=== PATIENT | female | born 1935 | race Caucasian/White ===

== ENCOUNTER 2020-08-13 14:32 | Inpatient (IN) ==
[2020-08-13] MEDS ORDERED: SODIUM CHLORIDE 0.9% 1000ML 1,000 ML IV SCH (14:45)
[2020-08-13] MEDS ORDERED: SODIUM CHLORIDE 0.9% 500 ML IV SCH (14:45)
--- NOTE | 2020-08-13 15:25 | XRay Report ---
XR chest 1V portable HISTORY: weakness COMPARISON: None. FINDINGS: No focal lung consolidations to suggest pneumonia. No evidence for pulmonary edema. The hea rt is mildly enlarged. There are surgical clips within the left axilla. Right paratracheal prominence is likely due to the rotation and AP portable technique. Prior cholecystectomy. IMPRESSION: Mild cardiomegaly. Otherwise, no acute process within the chest. ACT 112: Negative or not required by law. Electronically signed by: Clyde Yan M.D. 08/13/2020 3:24 PM
[2020-08-13 15:27] LABS: Basophils # (auto) 0.01 K/uL (0-0.2); Basophils % (auto) 0.1 %; Eosinophils # (auto) 0.02 K/uL (0-0.5); Eosinophils % (auto) 0.1 %; Hematocrit (blood only) 33.9 % (37-47); Hemoglobin 11.9 g/dL (12.0-16.0); Immature Granulocytes # (auto) 0.05 K/uL (0.00-0.02); Immature Granulocytes % (auto) 0.3 %; Lymphocytes # (auto) 0.82 K/uL (1.2-3.4); Lymphocytes % (auto) 5.6 %; Mean Corpuscular Hemoglobin 30.7 pg (25-34); Mean Corpuscular Hgb Conc 35.1 g/dL (32-36); Mean Corpuscular Volume 87.4 fL (80-100); Mean Platelet Volume 8.7 fL (7.4-10.4); Monocytes # (auto) 1.13 K/uL (0.11-0.59); Monocytes % (auto) 7.7 %; Neutrophils # (auto) 12.72 K/uL (1.4-6.5); Neutrophils % (auto) 86.2 %; Platelet Count 226 K/uL (130-400); RDW Coefficient of Variation 13.1 % (11.5-14.5); Red Blood Count 3.88 M/uL (4.2-5.4); White Blood Count 14.75 K/uL (4.8-10.8)
[2020-08-13 15:46] LABS: BUN Creatinine Ratio 25.4 (10-20); Creatinine Clr Calc Pharmacy 31.7 ml/min; Est GFR (African American) 49.5; Est GFR (Non-African American) 42.7; Potassium 3.6 mmol/L (3.5-5.1)
--- NOTE | 2020-08-13 16:10 | CT Scan Report ---
CT head/brain wo con CLINICAL HISTORY: Head trauma. Patient on floor for 24 hours. COMPARISON STUDY: No previous studies for comparison. TECHNIQUE: Axial CT of the brain is performed from the vertex to the skull base. IV contrast was not administered for this examination. A dose lowering technique was utilized adhering to the principles of ALARA. CT DOSE: 614.27 mGy.cm FINDINGS: No intra or extra-axial mass lesions are visualized. There is no CT evidence of acute cortical infarc tion. There is no evidence of midline shift. There is no acute hemorrhage. No calvarial fractures ar e visualized. There are patchy white matter hypodensities likely on a small vessel basis. There are bilateral basal ganglia lacunar infarcts. There is no evidence of pathologic ventricular dilatation. There is mild pansinus is thickening. There is mild left frontal scalp edema. There is right periorbital edema. IMPRESSION: No acute intracranial findings ACT 112: Negative or not required by law. Electronically signed by: Daniel Gresham M.D. 08/13/2020 4:09 PM
[2020-08-13 16:16] LABS: Albumin Globulin Ratio 0.9 (0.9-2); Bilirubin,Total 0.4 mg/dl (0.2-1); Globulin 3.2 gm/dl (2.5-4.0); Thyroid Stimulating Hormone 5.83 uIu/ml (0.300-4.500); Total Protein 6.2 gm/dl (6.4-8.2)
[2020-08-13 16:34] LABS: Appearance Urine Turbid (Clear); Bacteria Urine Automated 4+ (Negative); Bilirubin Urine Negative (Negative); Blood Urine 3+ (Negative); Color Urine Dark Yellow; Epithelial Cell Urine Auto >30 /lpf (0-5); Glucose Urine UA Negative (Negative); Ketones Urine 1+ (Negative); Leukocyte Esterase Urine 2+ (Negative); Nitrite Urine Positive (Negative); Protein Urine 2+ (Negative); Urobilinogen Urine Negative (Negative); WBC Urine Automated >30 /hpf (0-5)
[2020-08-13 16:38] LABS: T4 Free Thyroxine 1.45 ng/dl (0.8-1.6)
[2020-08-13] MEDS ORDERED: cefTRIAXone SODIUM 1,000 MG/50 ML BAG IV STA (17:03)
[2020-08-13 17:23] LABS: Amorphous Sediment Urine Present (None Prsent); Cast Urine Automated 0 /lpf (0-5); RBC Urine Automated >30 /hpf (0-4)
--- NOTE | 2020-08-13 17:23 | History & Physical Report ---
Date of Service August 13, 2020 Assessment & Plan (1) Fall: Unclear etiology, unwitnessed. Last known well 11am yesterday. PT/OT evals pending CT A/P, Hip XRs. Despite no specific groin pain will image hips to make sure no fracture as patient poor historian. CT A/P would also to r/o lumbar vertebral fracture. (2) UTI (urinary tract infection): Ceftriaxone 1g IV daily. Continue daily pending urine and blood cultures. (3) Abdominal distension: CT A/P without IV contrast pending. Mild generalized pain. Patient notes constipation. (4) Constipation: Add laxatives pending CT A/P to r/o bowel obstruction. (5) Rhabdomyolysis: Secondary to fall. CPK 7085 on arrival. Continue IV fluids. Given usually on 80mg furosemide monitor for pulmonary edema with this. Hold furosemide. (6) Left bundle branch block: Chronic - recorded in EHR 12/2019. No chest pain or shortness of breath to suggest ACS. (7) Restless legs: Continue pramipexole 0.75mg po HS (8) GERD (gastroesophageal reflux disease): Switch omeprazole to pantoprazole per hospital formulary. (9) Asthma: Continue montelukast and Advair Diskus or hospital formulary equivalent. (10) B12 deficiency anemia: Continue vitamin B complex (11) Hypothyroidism: TSH pending. Continue levothyroxine 75 mcg PO daily (12) DVT prophylaxis: Chemical prophylaxis deferred pending further workup. SCDs Admission and Anticipated Discharge Date Admission Date: Aug 13, 2020 History of Present Illness Chief Complaint: Unwitnessed fall Primary Care Provider: HARSHA Cronin Chantal Rajan is an 85-year-old female who presents to the ER after being found on her face to the bottom of the steps on a hardwood floor. She usually lives with her son and [id number]-lgy but currently on vacation in [place] and her grandson was checking in on the patient. This is the first time he had checked on her in a few days. Last known well was yesterday at 11 AM when the family talked to her on the phone. Transported by EMS with urine soaked to abdomen, red face and swollen with right eye swollen shut. Abrasion to left middle toe and right third toe. Chantal is unable to give an accurate history of when or the circumstances surrounding the fall and changed her story to multiple providers and nursing staff. She thinks it may have been multiple times. Unknown if chest pain, shortness of breath or dizzy prior to falling. She was unable to get up after the fall but denies any specific pains currently. She denies any urinary or upper respiratory symptoms. In the ER CXR was unremarkable and CT head showed no acute intracranial abnorm ality. CPK 7085. UA grossly positive for infection. She was given IV NSS 500ml bolus for the rhabodomylolsis and started on ceftriaxone for the presumed UTI. Of note right femoral line was placed in the ER due to poor venous access. She was referred to medicine for admission and ongoing management of UTI, rhabdomyolysis and fall. Allergies Allergy/AdvReac Type Severity Reaction Status Date / Time No Known Drug Allergies Allergy Verified 05/26/20 11:01 Home Medications Medication Instructions Recorded Confirmed Type aspirin 81 mg tablet,delayed 81 mg PO DAILY #30 tab 02/19/19 08/13/20 Rx release calcium carb-vit B1-xvvnsscks-jrcu 3 tab PO DAILY #90 tab 02/19/19 08/13/20 Rx 333 mg-200 unit-133 mg-5 mg tablet ferrous sulfate 27 mg iron tablet 27 mg PO DAILY #30 tab 02/19/19 08/13/20 Rx ipratropium 0.5 mg-albuterol 3 mg 3 ml INH QID #180 ml 02/19/19 08/13/20 Rx (2.5 mg base)/3 mL nebulization soln melatonin 10 mg capsule 10 mg PO DAILY PRN #30 cap 02/19/19 08/13/20 Rx potassium 99 mg tablet 2.5 meq PO DAILY #90 tab 02/19/19 08/13/20 Rx sennosides 8.6 mg tablet 8.6 mg PO DAILY PRN #30 tab 02/19/19 08/13/20 Rx vitamin B complex 1 tab PO DAILY #30 tab 02/19/19 08/13/20 Rx cholecalciferol (vitamin D3) 25 1,000 units PO DAILY #30 cap 08/30/19 08/13/20 Rx mcg (1,000 unit) capsule omeprazole 40 mg capsule,delayed 40 mg PO DAILY #90 cap 08/30/19 08/13/20 Rx release ergocalciferol (vitamin D2) 1,250 50,000 units PO UD cap 12/24/19 08/13/20 History mcg (50,000 unit) capsule clorazepate dipotassium 7.5 mg 7.5 mg PO BID PRN #60 tab 02/04/20 08/13/20 Rx tablet albuterol sulfate 90 mcg/actuation 2 puff INHALATION QID PRN #18 g 02/14/20 08/13/20 Rx aerosol inhaler cetirizine 10 mg tablet 10 mg PO DAILY PRN #90 tab 02/14/20 08/13/20 Rx fluticasone 100 mcg-salmeterol 50 1 ea INH BID #60 ea 02/14/20 08/13/20 Rx mcg/dose blistr powdr for inhalation levothyroxine 75 mcg tablet 75 mcg PO DAILY #90 tab 02/14/20 08/13/20 Rx tamoxifen 20 mg tablet 20 mg PO DAILY #90 tab 02/14/20 08/13/20 Rx montelukast 10 mg tablet 10 mg PO QPM #90 tab 03/24/20 08/13/20 Rx nystatin 100,000 unit/gram topical 1 applic TOPICAL DAILY #30 g 05/26/20 08/13/20 Rx powder furosemide 40 mg tablet 80 mg PO DAILY #180 tab 07/06/20 08/13/20 Rx pramipexole 0.75 mg tablet 0.75 mg PO DAILY #90 tab 07/06/20 08/13/20 Rx cyclobenzaprine 0 mg PO UD PRN 08/13/20 08/13/20 History Past Med/Surg History Medical History Arthritis Breast cancer Cholecystitis Depression with anxiety Hearing difficulty HX: breast cancer left breast (mastectomy) Hyperlipemia Hypertension Hypothyroidism Migraine Pneumonia Vision problem Surgical History H/O mastectomy left H/O: hysterectomy History of knee replacement BILATERAL Hx of cholecystectomy Family History Sister No problems noted. Mother Heart disease Hypertension Lung cancer Denies family history of Ovarian cancer Prostate cancer Breast cancer Colorectal cancer Social History Smoking Status: Never smoker Second Hand Exposure: Yes; Hx Alcohol Use: No Hx Substance Use: No Preferred Language: Kazakh Beliefs That Will Affect Care: None marital status: / Current Living Situation: Family current occupational status: retired Other Information That Helps Us Care for You: No Feels Safe at Home: Yes Dental Care, Regularly: No Physical Activity Frequency: Does not Exercise Assistive Devices: None Assistive Devices Comment: no assistive devices here Review of Systems Review of Systems: All systems reviewed & are unremarkable except as noted in HPI & below Constitutional: + body aches and + fatigue Eyes: no problem reported Cardiovascular: no problem reported Gastrointestinal: + constipation; no abdominal pain, no belching, no heartburn, no nausea, no vomiting, no coffee ground emesis, no dysphagia, no blood in stools and no melena Musculoskeletal: no back pain and no muscle weakness Physical Exam Constitutional: well developed; no acute distress Eyes: PERRL, conjunctivae normal, anicteric sclerae Periorbital edema surrounding right eye, conjunctiva without hemorrhage. ENMT: Ears: no external ear abnormality Nose: no external nose abnormality Mouth: + dry oral mucous membranes Neck: normal visual inspection and trachea midline Respiratory: normal respiratory effort, lungs clear to auscultation Cardiovascular: Rate/Rhythm: regular rate and regular rhythm Heart Sounds: no murmur Extremities: normal capillary refill and + pedal edema (trace b/l ankles); no calf tenderness Gastrointestinal (Abdomen): Inspection/Auscultation: + abdomen distended and normal bowel sounds Percussion/Palpation: + abdomen tender (mild generalized) and abdomen soft; no guarding and abdomen not rigid Musculoskeletal: Head/Neck/Chest: + evidence of head trauma (right scalp edema and erythema) Spine: normal cervical ROM, no pain with cervical ROM, no cervical spinal tenderness, no pain with thoraco-lumbar ROM, no thoracic spinal tenderness and no lumbar spinal tenderness Hip: hip normal to inspection, no deformity, no effusion, no skin erythema, no ecchymosis and no joint line tenderness (no pain noted with ext/int rotation of b/l hips, grimacing with right hip) Knee: + skin erythema (over b/l knee scars) Skin: + erythema (over b/l knees, pressure related without overt cellulitis changes) Trauma: + evidence of skin trauma (minor abrasions over toes); no periorbital ecchymosis (erythema without ecchymosis over right eye) Neurologic: CN's II-XI intact bilaterally, moves all extremities and awake; no focal motor deficits (no lateralizing deficit) and not confused Psychiatric: Orientation: alert and oriented x 3 Apperance: + disheveled Eye Contact: good eye contact Genitourinary: no CVA tenderness Results & Data Results & Data ([facility]) Vital Signs (Past 12 Hours) Vital Signs Temp Pulse Pulse Resp BP BP Pulse Ox 08/13/20 17:01 91 H 24 112/62 98 08/13/20 16:30 91 H 24 117/64 98 08/13/20 16:10 91 H 24 112/68 97 08/13/20 15:56 91 H 24 114/65 97 08/13/20 15:45 90 21 112/68 99 08/13/20 15:14 88 24 107/60 96 08/13/20 15:04 36.5 C 08/13/20 14:51 95 08/13/20 14:43 93 H 20 95/57 L 97 Diagnostic Findings XR chest 1V portable IMPRESSION: Mild cardiomegaly. Otherwise, no acute process within the chest. CT head/brain wo con IMPRESSION: No acute intracranial findings Medications Administered ER Medications given: Ceftriaxone 1g IV NSS 500ml bolus NSS @ 100ml/hr started ECG Indication: altered mental status Rate (beats per minute): 93 Rhythm: normal sinus Findings: + LBBB Comparison ECG Date: no prior available Code Status & VTE Plan Code Status Full as discussed with the patient VTE Prophylaxis Plan VTE Prophylaxis will be ordered: Yes PG Care Time/CCT Total # of Minutes Spent Total Time Spent with Patient: Total time spent is greater than 50% in coordination of care (as documented) at patient's floor/unit and/or counseling patient: Coding Level of Care Code 58484 Initial Inpt Care Lvl 3 Diagnoses Fall W19.XXXA UTI (urinary tract infection) N39.0 Abdominal distension R14.0 Constipation K59.00 Rhabdomyolysis M62.82 Left bundle branch block I44.7 Restless legs G25.81 GERD (gastroesophageal reflux disease) K21.9 Asthma J45.909 B12 deficiency anemia D51.9 Hypothyroidism E03.9 DVT prophylaxis Z29.9
--- NOTE | 2020-08-13 17:59 | XRay Report ---
XR hip INDIO 2v w pelvis CLINICAL HISTORY: Fall ?fracture COMPARISON STUDY: No previous studies for comparison. FINDINGS: A catheter projects over the pelvis. The sacroiliac joints and symphysis pubis are intact. No acute fracture within the pelvis or hips is identified. There is a moderate to large amount of sto ol within the rectum. There is mild joint space narrowing and moderate osteophytosis of both hips. IMPRESSION: No acute fracture within the pelvis or hips. ACT 112: Negative or not required by law. Electronically signed by: Srinivas Vines M.D. 08/13/2020 5:57 PM
[2020-08-13] MEDS ORDERED: ACETAMINOPHEN 325 MG TAB PO PRN (20:35)
[2020-08-13] MEDS ORDERED: ALUMINUM/MAGNESIUM SUSP 30 ML UDC PO PRN (20:35)
[2020-08-13] MEDS ORDERED: ONDANSETRON INJ 2 MG/ML 2 ML VIAL IV PRN (20:35)
[2020-08-13] MEDS ORDERED: POLYETHYLENE (MIRALAX) 17 GM PACK PO PRN (20:35)
--- NOTE | 2020-08-13 20:39 | CT Scan Report ---
CT OF THE ABDOMEN AND PELVIS WITHOUT CONTRAST CLINICAL HISTORY: Abdominal distention and pain following fall. COMPARISON STUDY: No previous studies for comparison. TECHNIQUE: Axial images of the abdomen and pelvis were obtained without IV contrast. Images were revi ewed in the axial, sagittal, and coronal planes. Automated exposure control was utilized for the makayla dy. A dose lowering technique was utilized adhering to the principles of ALARA. FINDINGS: Lung bases are unremarkable. This exam is compromised given lack of contrast and motion art ifact. Unenhanced images of the liver, spleen, adrenal glands, kidneys and pancreas are unremarkable. The gallbladder surgically absent. There is no peripancreatic infiltration. No hemoperitoneum or pne umoperitoneum is present. There is no evidence for a bowel obstruction. There is a large amount of st ool within the rectum. There is minimal perirectal infiltration. There is a moderate amount of stool within the colon. No acute lumbar spine fracture is present. There is a Toscano balloon within the blad paulette. Irregular appearance of gas within the bladder is noted. There may be debris within the bladder. There is subtle cortical irregularity of the left femoral neck shown best on axial image 338 of 396. IMPRESSION: 1. Large amount stool within the rectum and moderate amount stool within the colon. No evidence for a bowel obstruction. 2. Equivocal acute nondisplaced fracture of the left femoral neck. This may be artifactual however if persistent left hip pain, MRI is recommended. 3. Toscano balloon within the bladder. Unusual appearance of gas within the bladder which could be jodee elated with urinalysis. ACT 112: Negative or not required by law. Electronically signed by: Srinivas Vines M.D. 08/13/2020 8:38 PM
[2020-08-13] MEDS ORDERED: MELATONIN 3 MG TAB PO PRN (20:49)
[2020-08-13] MEDS ORDERED: PNEUMOCOCCAL Polysaccharide Vaccine 25mcg/0.5mL vial/Syr IM ONE (21:15)
[2020-08-13] MEDS: PRAMIPEXOLE DIHYDROCHLO 0.25 MG TAB PO SCH (21:44)
[2020-08-13] MEDS: MONTELUKAST SODIUM 10 MG TABLET PO SCH (21:45)
[2020-08-14] MEDS: SODIUM CHLORIDE 0.9% 1000ML 1,000 ML IV SCH ×2 (01:58→09:50)
[2020-08-14] MEDS: LEVOTHYROXINE SODIUM 75 MCG TABLET PO SCH (05:46)
--- NOTE | 2020-08-14 06:32 | Electrocardiogram Report ---
Test Reason : Blood Pressure : / mmHG Vent. Rate : 093 BPM Atrial Rate : 093 BPM P-R Int : 140 ms QRS Dur : 132 ms QT Int : 488 ms P-R-T Axes : 070 -20 122 degrees QTc Int : 606 ms Normal sinus rhythm Left bundle branch block Abnormal ECG No previous ECGs available Confirmed by Mohinder Pinzon ([id number]) on 08/14/2020 6:31:54 AM Referred By: Confirmed By:Mohinder Pinzon
[2020-08-14 07:18] LABS: Basophils # (auto) 0.01 K/uL (0-0.2); Basophils % (auto) 0.1 %; Eosinophils # (auto) 0.25 K/uL (0-0.5); Hematocrit (blood only) 33.5 % (37-47); Hemoglobin 11.6 g/dL (12.0-16.0); Immature Granulocytes # (auto) 0.07 K/uL (0.00-0.02); Immature Granulocytes % (auto) 0.6 %; Lymphocytes % (auto) 9.6 %; Mean Corpuscular Hemoglobin 30.5 pg (25-34); Mean Corpuscular Hgb Conc 34.6 g/dL (32-36); Mean Corpuscular Volume 88.2 fL (80-100); Mean Platelet Volume 8.7 fL (7.4-10.4); Monocytes % (auto) 7.2 %; Neutrophils # (auto) 10.11 K/uL (1.4-6.5); Neutrophils % (auto) 80.5 %; Platelet Count 176 K/uL (130-400); RDW Coefficient of Variation 13.7 % (11.5-14.5); White Blood Count 12.54 K/uL (4.8-10.8)
[2020-08-14 07:47] LABS: Albumin Level 2.7 gm/dl (3.4-5.0); BUN Creatinine Ratio 23.9 (10-20); Calcium 8.2 mg/dl (8.5-10.1); Creatinine Clr Calc Pharmacy 27.5 ml/min; Est GFR (African American) 49.5; Est GFR (Non-African American) 42.7
[2020-08-14 08:01] LABS: Albumin Globulin Ratio 0.9 (0.9-2); Bilirubin,Total 0.3 mg/dl (0.2-1); Globulin 3.2 gm/dl (2.5-4.0); Total Protein 5.9 gm/dl (6.4-8.2)
[2020-08-14] MEDS: CALCIUM 600MG + VIT D 400 IU TAB PO SCH (09:46)
[2020-08-14] MEDS: FLUTICASONE/VILANTEROL 100/25MCG 14 PUFFS/INHALER INH SCH (09:46)
[2020-08-14] MEDS: TAMOXIFEN CITRATE 10 MG TABLET PO SCH (09:46)
[2020-08-14] MEDS: VITAMIN B COMPLEX TAB PO SCH (09:46)
[2020-08-14] MEDS: CHOLECALCIFEROL 1,000 UNITS 25 MCG TAB PO SCH (09:46)
[2020-08-14] MEDS: PANTOprazole 40 MG TAB PO SCH (09:46)
[2020-08-14] MEDS: POLYETHYLENE (MIRALAX) 17 GM PACK PO SCH (09:49)
[2020-08-14] MEDS ORDERED: METOPROLOL TARTRATE 1 MG/ML VIAL IV STA ×2 (12:42)
[2020-08-14] MEDS ORDERED: STAT IV Infusion **Titration per Protocol STA (13:06)
[2020-08-14] MEDS ORDERED: AMIODARONE / D5W 150 MG/100 ML BAG IV STA (13:06)
[2020-08-14] MEDS ORDERED: AMIODARONE IV BOLUS & DRIP IV STA (13:06)
[2020-08-14] MEDS ORDERED: 0.2 MICRON FILTER SET 1 EA IV ONE ×2 (13:06)
[2020-08-14] MEDS ORDERED: AMIODARONE / D5W 150 MG/100 ML BAG IV ONE (13:15)
[2020-08-14] MEDS ORDERED: AMIODARONE / D5W 360 MG/200 ML BAG IV ONE (13:30)
--- NOTE | 2020-08-14 15:49 | Cardiology Consultation ---
Date of Consultation August 14, 2020 Assessment & Plan (1) Atrial fibrillation with RVR: (2) Fall: (3) Rhabdomyolysis: ASSESSMENT/PLAN: 1. AFib with RVR: Asymptomatic. New diagnosis for her. Recommended amiodarone given acute onset and mild hypotension. Fortunately, she quickly converted. Continue IV amiodarone today. Consider transitioning to amiodarone 200 mg p.o. b.i.d. tomorrow. If she develops further AFib, would then use a more formal loading of 400 mg p.o. b.i.d. for 10 days before reducing to 200 mg p.o. b.i.d.. Recommend anticoagulation for stroke risk reduction. Diagnosis in treatment strategy discussed with her daughter via telephone. Her daughter states that she has only fallen twice in the past 1.5 years. 2. Fall: Her falls have been historically mechanical in nature per her daughter who has witnessed her falling in the past. Hip pain as per primary service versus ortho. 3. Rhabdomyolysis: As per primary service. 4. Disposition: Dr. Barnett will be covering [facility] cardiology over the weekend. Please call him with any questions or concerns. Follow-up with Dr. Napier at 1-2 weeks after discharge. Patient care communicated with Dr. Rogel of the primary hospitalist service. Thank you for allowing me to participate in the care of your patient. Please call for any other questions or concerns. Sincerely, Jhon Pinzon M.D. History of Present Illness Reason for Consultation: AFib with RVR Requesting Physician: Dante Rogel Attending Physician: Dante Rogel History of Present Illness Ms. Rajan is a very pleasant 85-year-old female with a history significant for LBBB and hypothyroidism. Her primary damage inside adjuster is Dr. Napire. She was admitted on 08/13/2020 after an unwitnessed fall. She lives with her daughter, Milvia, but Milvia went to [place] to help take care of her daughter who fractured her arm. Milvia believes that her mother was on the floor for less than 12 hours. She states that she has fallen twice in the past 1.5 years while living with her. Ms Rajan stated that she falls often but Milvia states that that is not the case. Her falls have been witnessed in the past and have been mechanical in nature. She states that her mother loses her balance and then falls on her face. Milvia states that her mother's memory is not significantly declined but that she is hard of hearing and sometimes does not answer questions appropriately. Much of today's history was obtained by reviewing the chart and discussing with Milvia via telephone, as Ms. Rajan was found to be a poor historian. She also tends to mumble and was difficult to understand at times. She denies chest pain. She acknowledges herself that she has memory issues. She states that she is always short of breath but this is chronic in nature. She remembers falling and states that she did not have any syncope or near-syncope. She denies palpitations or bleeding. She has been diagnosed with rhabdomyolysis with a CPK of 7085 on arrival UTI. Cardiology was consulted this afternoon as she developed atrial fibrillation with rapid ventricular response at 12:09 p.m.. She had been in sinus rhythm. With this, it was noted that she was mildly hypotensive. Dr. Rogel spoke with me via telephone and amiodarone was recommended given that this was witnessed new onset. She is asymptomatic from atrial fibrillation, denying any palpitations. 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 Review of systems: As above. She also admits to left hip pain. Review systems otherwise unobtainable. Family history: Mother age 88 with asthma and heart disease. Sister at 88. Social history: Denies tobacco, alcohol, or drug abuse. Lives with her poppy corey, Milvia, and son-in-law. She has 2 children. She is a . She is from [place]. Allergies Allergy/AdvReac Type Severity Reaction Status Date / Time No Known Drug Allergies Allergy Verified 05/26/20 11:01 Home Medications Medication Instructions Recorded Confirmed Type aspirin 81 mg tablet,delayed 81 mg PO DAILY #30 tab 02/19/19 08/13/20 Rx release calcium carb-vit [id number] 3 tab PO DAILY #90 tab 02/19/19 08/13/20 Rx 333 mg-200 unit-133 mg-5 mg tablet ferrous sulfate 27 mg iron tablet 27 mg PO DAILY #30 tab 02/19/19 08/13/20 Rx ipratropium 0.5 mg-albuterol 3 mg 3 ml INH QID #180 ml 02/19/19 08/13/20 Rx (2.5 mg base)/3 mL nebulization soln melatonin 10 mg capsule 10 mg PO DAILY PRN #30 cap 02/19/19 08/13/20 Rx potassium 99 mg tablet 2.5 meq PO DAILY #90 tab 02/19/19 08/13/20 Rx sennosides 8.6 mg tablet 8.6 mg PO DAILY PRN #30 tab 02/19/19 08/13/20 Rx vitamin B complex 1 tab PO DAILY #30 tab 02/19/19 08/13/20 Rx cholecalciferol (vitamin D3) 25 1,000 units PO DAILY #30 cap 08/30/19 08/13/20 Rx mcg (1,000 unit) capsule omeprazole 40 mg capsule,delayed 40 mg PO DAILY #90 cap 08/30/19 08/13/20 Rx release ergocalciferol (vitamin D2) 1,250 50,000 units PO UD cap 12/24/19 08/13/20 History mcg (50,000 unit) capsule clorazepate dipotassium 7.5 mg 7.5 mg PO BID PRN #60 tab 02/04/20 08/13/20 Rx tablet albuterol sulfate 90 mcg/actuation 2 puff INHALATION QID PRN #18 g 02/14/20 08/13/20 Rx aerosol inhaler cetirizine 10 mg tablet 10 mg PO DAILY PRN #90 tab 02/14/20 08/13/20 Rx fluticasone 100 mcg-salmeterol 50 1 ea INH BID #60 ea 02/14/20 08/13/20 Rx mcg/dose blistr powdr for inhalation levothyroxine 75 mcg tablet 75 mcg PO DAILY #90 tab 02/14/20 08/13/20 Rx tamoxifen 20 mg tablet 20 mg PO DAILY #90 tab 02/14/20 08/13/20 Rx montelukast 10 mg tablet 10 mg PO QPM #90 tab 03/24/20 08/13/20 Rx nystatin 100,000 unit/gram topical 1 applic TOPICAL DAILY #30 g 05/26/20 08/13/20 Rx powder furosemide 40 mg tablet 80 mg PO DAILY #180 tab 07/06/20 08/13/20 Rx pramipexole 0.75 mg tablet 0.75 mg PO DAILY #90 tab 07/06/20 08/13/20 Rx cyclobenzaprine 0 mg PO UD PRN 08/13/20 08/13/20 History Patient History Medical History (Updated 08/14/20 @ 17:00 by Mohinder Pinzon MD) Arthritis Breast cancer Cholecystitis Depression with anxiety Hearing difficulty HX: breast cancer left breast (mastectomy) Hyperlipemia Hypertension Hypothyroidism Migraine Pneumonia Vision problem Surgical History H/O mastectomy left H/O: hysterectomy History of knee replacement BILATERAL Hx of cholecystectomy Family History Sister No problems noted. Mother Heart disease Hypertension Lung cancer Denies family history of Ovarian cancer Prostate cancer Breast cancer Colorectal cancer Social History Smoking Status: Never smoker Second Hand Exposure: Yes; Hx Alcohol Use: No Hx Substance Use: No Preferred Language: Taiwanese Beliefs That Will Affect Care: None marital status: / Current Living Situation: Family current occupational status: retired Feels Safe at Home: Yes Dental Care, Regularly: No Physical Activity Frequency: Does not Exercise Assistive Devices: Glasses and Walker Physical Exam Physical Exam: Gen.: No acute distress. Alert. HEENT: Anicteric sclera. Neck: No JVD. No bruits. Normal carotid upstrokes bilaterally. Cardiac: PMI was nondisplaced. No ventricular heave. Regular. Normal S1-S2. No murmurs, rubs, or gallops. Pulmonary: Clear to auscultation bilaterally without wheezes, rales, or rhonchi. Abdomen: Soft, nontender, nondistended, with normoactive bowel sounds. No bruits noted. Extremities: 2+ radial pulses bilaterally. 2+ posterior tibialis pulses bilaterally. Trace bilateral lower extremity edema. No cyanosis. Results & Data ([facility]) Vital Signs (Past 12 Hours) Vital Signs Temp Pulse Pulse Resp BP Pulse Ox 08/14/20 15:30 92 H 08/14/20 14:12 101/66 08/14/20 14:01 36.4 C L 115 H 16 100/63 94 08/14/20 13:24 131 H 20 86/59 L 92 08/14/20 13:13 134 H 16 92/65 L 92 08/14/20 13:08 118 H 92/64 L 08/14/20 13:04 84/60 L 08/14/20 13:02 131 H 89/60 L 08/14/20 12:32 36.5 C 134 H 20 97/61 L 96 08/14/20 12:15 129 H 08/14/20 11:11 36.8 C 92 H 19 96/62 L 98 08/14/20 08:15 36.5 C 94 H 19 131/60 96 08/14/20 08:00 88 Laboratory Results Laboratory Results - last 24 hr 08/13/20 08/13/20 08/13/20 16:19 17:24 17:24 WBC RBC Hgb Hct MCV MCH MCHC RDW Std Deviation RDW Coeff of Leandro Plt Count MPV Immature Gran % (Auto) Neut % (Auto) Lymph % (Auto) [place] % (Auto) Eos % (Auto) Baso % (Auto) Neut # (Auto) Lymph # (Auto) [place] # (Auto) Eos # (Auto) Baso # (Auto) Immature Gran # (Auto) Sodium Potassium Chloride Carbon Dioxide Anion Gap BUN Creatinine Est Cr Clr Drug Dosing Est GFR ( Amer) Est GFR (Non-Af Amer) BUN/Creatinine Ratio Glucose Lactate Calcium Total Bilirubin AST ALT Alkaline Phosphatase Total Creatine Kinase Total Protein Albumin Globulin Albumin/Globulin Ratio Urine WBC (Auto) >30 H Urine RBC (Auto) >30 H U Hyaline Cast (Auto) 0 U Epithel Cells (Auto) >30 H Urine Bacteria (Auto) 4+ H Amorphous Sediment Present A COVID-19 Eval Order [facility] SARS-CoV-2, RNA, NAAT NEGATIVE 08/14/20 08/14/20 08/14/20 07:01 07:01 14:45 WBC 12.54 H RBC 3.80 L Hgb 11.6 L Hct 33.5 L MCV 88.2 MCH 30.5 MCHC 34.6 RDW Std Deviation 44.0 RDW Coeff of Leandro 13.7 Plt Count 176 MPV 8.7 Immature Gran % (Auto) 0.6 Neut % (Auto) 80.5 Lymph % (Auto) 9.6 [place] % (Auto) 7.2 Eos % (Auto) 2.0 Baso % (Auto) 0.1 Neut # (Auto) 10.11 H Lymph # (Auto) 1.20 [place] # (Auto) 0.90 H Eos # (Auto) 0.25 Baso # (Auto) 0.01 Immature Gran # (Auto) 0.07 H Sodium 139 Potassium 4.0 Chloride 109 H Carbon Dioxide 23 Anion Gap 6.0 BUN 28 H Creatinine 1.15 Est Cr Clr Drug Dosing 27.5 Est GFR ( Amer) 49.5 Est GFR (Non-Af Amer) 42.7 BUN/Creatinine Ratio 23.9 H Glucose 110 H Lactate 2.2 H* Calcium 8.2 L Total Bilirubin 0.3 AST 156 H ALT 62 Alkaline Phosphatase 43 L Total Creatine Kinase 3720 H Total Protein 5.9 L Albumin 2.7 L Globulin 3.2 Albumin/Globulin Ratio 0.9 Urine WBC (Auto) Urine RBC (Auto) U Hyaline Cast (Auto) U Epithel Cells (Auto) Urine Bacteria (Auto) Amorphous Sediment COVID-19 Eval Order SARS-CoV-2, RNA, NAAT Diagnostic Findings Telemetry personally reviewed: Sinus rhythm until 1209 when AFib with RVR developed. Amiodarone was started and then converted to sinus rhythm at 2:15 p.m.. ECG personally reviewed: ECG 08/13/2020 at 2:42 p.m.: Sinus rhythm 93 beats per minute. LBBB. ECG 08/14/2020 at 12:29 p.m.: AFib with RVR 121 beats per minute. LBBB. Echo 06/09/2020: Normal LV size, wall motion, systolic function. EF 60-65%. Mild left atrial dilation. Moderate to severe MAC. Chest x-ray 08/13/2020: No acute process per Radiology. CT abdomen/pelvis 08/13/2020: Equivocal acute nondisplaced fracture of left femoral neck. MRI recommended by radiology. Medications Administered Current Inpatient Medications Acetaminophen (Acetaminophen 325 Mg Tab) 650 mg PO Q4H PRN PRN Reason: Pain or Fever Stop: 09/12/20 20:34 Al Hydrox/Mg Hydrox/Simethicone (Aluminum/Magnesium Susp 30 Ml Udc) 15 ml PO Q4H PRN PRN Reason: Dyspepsia Stop: 09/12/20 20:34 Fluticasone/Vilanterol (Fluticasone/Vilanterol 100/25mcg 14 Puffs/Inhaler) 1 puffs INH DAILY [facility]; Protocol Stop: 09/13/20 08:59 Last Admin: 08/14/20 09:46 Dose: 1 puffs Documented by: Ceftriaxone Sodium (Rocephin) 1,000 mg in 50 mls @ 100 mls/hr IV Q24H [place] Stop: 08/26/20 16:29 Sodium Chloride (Nss 1000ml) 1,000 mls @ 150 mls/hr IV .Q6H40M [facility] Stop: 08/14/20 23:27 Last Admin: 08/14/20 09:50 Dose: 100 mls/hr Documented by: Amiodarone HCl/Dextrose (Nexterone / D5w) 360 mg in 200 mls @ 33.333 mls/hr IV ONE ONE Stop: 08/14/20 19:29 Last Admin: 08/14/20 13:55 Dose: 33.3 mls/hr Documented by: Amiodarone HCl/Dextrose (Nexterone / D5w) 360 mg in 200 mls @ 16.667 mls/hr IV .Q12H [facility] Stop: 09/13/20 19:29 Levothyroxine Sodium (Levothyroxine Sodium 75 Mcg Tablet) 75 mcg PO DAILYBB [facility] Stop: 09/13/20 06:29 Last Admin: 08/14/20 05:46 Dose: 75 mcg Documented by: Melatonin (Melatonin 3 Mg Tab) 9 mg PO HSZ PRN PRN Reason: Sleep Stop: 09/12/20 20:48 Montelukast Sodium (Montelukast Sodium 10 Mg Tablet) 10 mg PO QPM [facility] Stop: 09/12/20 20:59 Last Admin: 08/13/20 21:45 Dose: 10 mg Documented by: Multivitamins/Minerals (Calcium 600mg + Vit D 400 Iu Tab) 1 tab PO DAILY [facility] Stop: 09/13/20 08:59 Last Admin: 08/14/20 09:46 Dose: 1 tab Documented by: Ondansetron HCl (Ondansetron Inj 2 Mg/Ml 2 Ml Vial) 4 mg IV Q6H PRN PRN Reason: Nausea Stop: 09/12/20 20:34 Pantoprazole Sodium (Pantoprazole 40 Mg Tab) 40 mg PO DAILY [facility] Stop: 09/13/20 08:59 Last Admin: 08/14/20 09:46 Dose: 40 mg Documented by: Polyethylene Glycol (Polyethylene (Miralax) 17 Gm Pack) 17 gm PO DAILY PRN PRN Reason: Constipation Stop: 09/12/20 20:34 Polyethylene Glycol (Polyethylene (Miralax) 17 Gm Pack) 17 gm PO DAILY [place] Stop: 09/13/20 08:59 Last Admin: 08/14/20 09:49 Dose: 17 gm Documented by: Pramipexole Dihydrochloride (Pramipexole Dihydrochlo 0.25 Mg Tab) 0.75 mg PO HS [place] Stop: 09/12/20 20:59 Last Admin: 08/13/20 21:44 Dose: 0.75 mg Documented by: Tamoxifen Citrate (Tamoxifen Citrate 10 Mg Tablet) 20 mg PO DAILY [place] Stop: 09/13/20 08:59 Last Admin: 08/14/20 09:46 Dose: 20 mg Documented by: Vitamin B Complex (Vitamin B Complex Tab) 1 tab PO DAILY [place] Stop: 09/13/20 08:59 Last Admin: 08/14/20 09:46 Dose: 1 tab Documented by: Vitamin D (Cholecalciferol 1,000 Units 25 Mcg Tab) 1,000 units PO DAILY [place] Stop: 09/13/20 08:59 Last Admin: 08/14/20 09:46 Dose: 1,000 units Documented by: PG Care Time/CCT Total # of Minutes Spent Total Time Spent with Patient: Total time spent is greater than 50% in coordination of care (as documented) at patient's floor/unit and/or counseling patient: Coding Level of Care Code 58051 Initial Inpt Care Lvl 3 Diagnoses Atrial fibrillation with RVR I48.91 Fall W19.XXXA Rhabdomyolysis M62.82
[2020-08-14] MEDS ORDERED: Heparin IV Adult Wt-Based Standard *NO* Bolus Protocol IV SCH (17:15)
[2020-08-14] MEDS: cefTRIAXone SODIUM 1,000 MG/50 ML BAG IV SCH (17:16)
[2020-08-14] MEDS ORDERED: Nursing to Pharmacy Communication SCH (17:45)
[2020-08-14] MEDS ORDERED: SODIUM CHLORIDE 0.9% 1000ML 1,000 ML IV SCH (17:45)
[2020-08-14] MEDS: HEPARIN SODIUM/DEXTROSE 25,000 UNITS/500 ML BAG IV SCH (18:11)
[2020-08-14 19:47] LABS: Partial Thromboplastin Ratio 0.9; Partial Thromboplastin Time 24.7 Seconds (21.0-31.0); Prothrombin Time 9.9 Seconds (9.0-12.0)
[2020-08-14] MEDS: AMIODARONE / D5W 360 MG/200 ML BAG IV SCH (20:56)
--- NOTE | 2020-08-14 21:03 | Emergency Department Note ---
Impression & Plan Rhabdomyolysis, Fall, Acute UTI, CHI (closed head injury), Weakness ED Provider Note NAME: AVINASH TOMLINSON AGE: 85 SEX: F ARRIVES VIA: Ambulance INFORMANT: EMS, Patient, Josefina ED PROVIDER(S): Ele Sheets MD CHIEF COMPLAINT: Found down PLAN: Disposition: Inpatient Condition: Fair Referral: Hospitalist MEDICAL DECISION MAKING: This pt was evaluated and appeared to be in no distress. IV access was obtained and lab work was drawn. Pt was placed on the registered nurse cardiac telemetry and noted to be in a NSR at 88 bpm. BP was fairly stable but IV access was difficult. EMS obtained a 22 g peripheral in the L arm, which is restricted d/t previous mastectomy. Attempts at EJs were made by myself but unsuccessful, many attempts by nursing and IV team were also made. A triple lumen was placed in the R femoral vein, please see below. IVF were given. A castro catheter was placed and UA noted to be infected. IV ceftriaxone was administered. CT head reveals no acute ICH. Pt was d/w the hospitalist service for further evaluation and management. Triage Nursing notes reviewed. Additional history obtained from josefina on arrival. Prior medical records reviewed Vital Signs: reviewed and remarkable for no significant abnormalities initially, developed hypotension Differential diagnosis: Infection, dehydration, metabolic abnormality, hypo/hyperglycemia, electrolyte disturbance, anemia, hypoxia, cardiac sources, intracerebral event, toxicologic, neurologic, as well as other pathologies. ER treatment provided: IV NSS IV ceftriaxone Diagnostics interpreted by me: ECG: NSR at 93 bpm, LBBB, prolonged QTc at 606, no PVC, no acute ischemia. No previous for comparison. Cardiac Monitoring: An order for cardiac monitoring was placed and the pt is noted to be in a NSR at 88 bpm. Laboratory studies: See below Imaging studies: CT head/brain wo con CLINICAL HISTORY: Head trauma. Patient on floor for 24 hours. COMPARISON STUDY: No previous studies for comparison. TECHNIQUE: Axial CT of the brain is performed from the vertex to the skull base. IV contrast was not administered for this examination. A dose lowering technique was utilized adhering to the principles of ALARA. CT DOSE: 614.27 mGy.cm FINDINGS: No intra or extra-axial mass lesions are visualized. There is no CT evidence of acute cortical infarction. There is no evidence of midline shift. There is no acute hemorrhage. No calvarial fractures are visualized. There are patchy white matter hypodensities likely on a small vessel basis. There are bilateral basal ganglia lacunar infarcts. There is no evidence of pathologic ventricular dilatation. There is mild pansinus is thickening. There is mild left frontal scalp edema. There is right periorbital edema. IMPRESSION: No acute intracranial findings ACT 112: Negative or not required by law. Electronically signed by: Daniel Gresham M.D. 08/13/2020 4:09 PM Dictated: 08/13/20 1606Transcribed: 08/13/20 1608 XR chest 1V portable HISTORY: weakness COMPARISON: None. FINDINGS: No focal lung consolidations to suggest pneumonia. No evidence for pulmonary edema. The heart is mildly enlarged. There are surgical clips within t he left axilla. Right paratracheal prominence is likely due to the rotation and AP portable technique. Prior cholecystectomy. IMPRESSION: Mild cardiomegaly. Otherwise, no acute process within the chest. ACT 112: Negative or not required by law. Electronically signed by: Clyde Yan M.D. 08/13/2020 3:24 PM Dictated: 08/13/20 1513Transcribed: 08/13/20 1513 HPI: 85/F arrives after grandson found her face down on the hardwood floor. Pt was home alone as family had gone away. They had been checking in with her over the last several days, however no one has heard from her in at least 24 hrs. The history is unclear, however pt states she fell and attempted to crawl. It seems several falls may have occurred. History is limited. Grandson found pt at 11 am and called EMS. ROS: History/ROS is limited d/t pt's limited memory PAST MEDICAL HISTORY:See below PAST SURGICAL HISTORY:See below FAMILY HISTORY:See below SOCIAL HISTORY:See below HOME MEDICATIONS:See below ALLERGIES:See below VITALS:See below PHYSICAL EXAMINATION: Vital signs reviewed. General: Chronically ill-appearing elderly 85 yo female, in some discomfort. HEENT: No conjunctival injection, PERRLA, neck supple. facial contusions with edema to forehead and bilateral periorbital area. Cardiovascular: Regular rate and rhythm, no extra sounds. Pulmonary: Clear to auscultation bilaterally, normal work of breathing. Abdomen: Soft, nontender, nondistended, positive bowel sounds. Musculoskeletal: Atraumatic, no peripheral edema. nontender to palpation over t he cervical spine. Neurologic: Patient awake, alert and responding to verbal stimuli. Answering questions but somewhat confused to time and events preceding. Follows commands. Skin: Warm, dry, ecchymosis to face appreciated. Abrasions to bilateral feet and toes, no swelling. Procedures: Central Venous Catheter Indication: Unstable VS, lack of peripheral IV access Catheter type: triple lumen Location: Right femoral vein Verbal consent was obtained after the risks and benefits were explained, including but not limited to vessel injury, bleeding, scarring, infection, pain, and bone/joint/nerve damage. At this time, the risks of the procedure are less than the risks of NOT performing the procedure. A time out was taken and the correct patient and site identified. The patient was placed in the supine position and the skin was prepped in the standard fashion with chlorhexidine and full sterile drapes applied. The proper landmarks were identified with ultrasound, anesthetized with 1% lidocaine without epinephrine, and the needle was inserted through the skin in the standard fashion. The needle was carefully advanced into blood vessel lumen under ultrasound guidance. The guidewire was placed uneventfully. The vessel is dilated and the catheter was placed. It was sutured into position. There was good blood return from all ports. The patient tolerated the procedure well and there were no complications. The high probability of a clinically significant, sudden or life threatening deterioration required my full and direct attention, intervention and personal management. The aggregate critical care time was 35 minutes. This time is in addition to time spent performing reported procedures but includes the following: [x] Data Review and interpretation [x] Patient assessment and monitoring of vital signs [x] Documentation [x] Medication orders and management Ele Sheets MD Past Med/Surg History Medical History Arthritis Breast cancer Cholecystitis Depression with anxiety Hearing difficulty HX: breast cancer left breast (mastectomy) Hyperlipemia Hypertension Hypothyroidism Migraine Pneumonia Vision problem Surgical History H/O mastectomy left H/O: hysterectomy History of knee replacement BILATERAL Hx of cholecystectomy Family History Sister No problems noted. Mother Heart disease Hypertension Lung cancer Denies family history of Ovarian cancer Prostate cancer Breast cancer Colorectal cancer Social History Smoking Status: Never smoker Second Hand Exposure: Yes; Hx Alcohol Use: No Hx Substance Use: No Preferred Language: Scottish Beliefs That Will Affect Care: None marital status: / Current Living Situation: Family current occupational status: retired Feels Safe at Home: Yes Dental Care, Regularly: No Physical Activity Frequency: Does not Exercise Assistive Devices: Glasses and Walker Allergies Allergies Allergy/AdvReac Type Severity Reaction Status Date / Time No Known Drug Allergies Allergy Verified 05/26/20 11:01 Home Meds Home Medications Medication Instructions Recorded Confirmed ergocalciferol (vitamin D2) 1,250 50,000 units PO UD cap 12/24/19 08/13/20 mcg (50,000 unit) capsule cyclobenzaprine 0 mg PO UD PRN 08/13/20 08/13/20 Previous Rx's Medication Instructions Recorded aspirin 81 mg tablet,delayed 81 mg PO DAILY #30 tab 02/19/19 release calcium carb-vit [id number] 3 tab PO DAILY #90 tab 02/19/19 333 mg-200 unit-133 mg-5 mg tablet ferrous sulfate 27 mg iron tablet 27 mg PO DAILY #30 tab 02/19/19 ipratropium 0.5 mg-albuterol 3 mg 3 ml INH QID #180 ml 02/19/19 (2.5 mg base)/3 mL nebulization soln melatonin 10 mg capsule 10 mg PO DAILY PRN #30 cap 02/19/19 potassium 99 mg tablet 2.5 meq PO DAILY #90 tab 02/19/19 sennosides 8.6 mg tablet 8.6 mg PO DAILY PRN #30 tab 02/19/19 vitamin B complex 1 tab PO DAILY #30 tab 02/19/19 cholecalciferol (vitamin D3) 25 1,000 units PO DAILY #30 cap 08/30/19 mcg (1,000 unit) capsule omeprazole 40 mg capsule,delayed 40 mg PO DAILY #90 cap 08/30/19 release clorazepate dipotassium 7.5 mg 7.5 mg PO BID PRN #60 tab 02/04/20 tablet albuterol sulfate 90 mcg/actuation 2 puff INHALATION QID PRN #18 g 02/14/20 aerosol inhaler cetirizine 10 mg tablet 10 mg PO DAILY PRN #90 tab 02/14/20 fluticasone 100 mcg-salmeterol 50 1 ea INH BID #60 ea 02/14/20 mcg/dose blistr powdr for inhalation levothyroxine 75 mcg tablet 75 mcg PO DAILY #90 tab 02/14/20 tamoxifen 20 mg tablet 20 mg PO DAILY #90 tab 02/14/20 montelukast 10 mg tablet 10 mg PO QPM #90 tab 03/24/20 nystatin 100,000 unit/gram topical 1 applic TOPICAL DAILY #30 g 05/26/20 powder furosemide 40 mg tablet 80 mg PO DAILY #180 tab 07/06/20 pramipexole 0.75 mg tablet 0.75 mg PO DAILY #90 tab 07/06/20 Results & Data (ED) Home Medications Current Medication List: was personally reviewed by me Laboratory Data Attestation: I reviewed the patient's lab results. Result diagrams: 08/14/20 07:01 08/14/20 07:01 Lab Results 08/13/20 08/13/20 08/13/20 Range/Units 15:10 15:10 15:10 WBC 14.75 H (4.8-10.8) K/uL RBC 3.88 L (4.2-5.4) M/uL Hgb 11.9 L (12.0-16.0) g/dL Hct 33.9 L (37-47) % MCV 87.4 (80-100) fL MCH 30.7 (25-34) pg MCHC 35.1 (32-36) g/dL RDW Std Deviation 42.0 (36.4-46.3) fL RDW Coeff of Leandro 13.1 (11.5-14.5) % Plt Count 226 (130-400) K/uL MPV 8.7 (7.4-10.4) fL Immature Gran % (Auto) 0.3 % Neut % (Auto) 86.2 % Lymph % (Auto) 5.6 % [place] % (Auto) 7.7 % Eos % (Auto) 0.1 % Baso % (Auto) 0.1 % Neut # (Auto) 12.72 H (1.4-6.5) K/uL Lymph # (Auto) 0.82 L (1.2-3.4) K/uL [place] # (Auto) 1.13 H (0.11-0.59) K/uL Eos # (Auto) 0.02 (0-0.5) K/uL Baso # (Auto) 0.01 (0-0.2) K/uL Immature Gran # (Auto) 0.05 H (0.00-0.02) K/uL Sodium 137 (136-145) mmol/L Potassium 3.6 (3.5-5.1) mmol/L Chloride 107 (98-107) mmol/L Carbon Dioxide 17 L (21-32) mmol/L Anion Gap 13.0 H (3-11) BUN 29 H (7-18) mg/dl Creatinine 1.15 (0.6-1.2) mg/dl Est Cr Clr Drug Dosing 31.7 ml/min Est GFR ( Amer) 49.5 Est GFR (Non-Af Amer) 42.7 BUN/Creatinine Ratio 25.4 H (10-20) Glucose 118 H (70-99) mg/dl Lactate 1.0 (0.4-2.0) mmol/L Calcium 8.0 L (8.5-10.1) mg/dl Total Bilirubin 0.4 (0.2-1) mg/dl AST 216 H (15-37) U/L ALT 61 (12-78) U/L Alkaline Phosphatase 52 (45-117) U/L Total Creatine Kinase 7085 H (26-192) U/L Total Protein 6.2 L (6.4-8.2) gm/dl Albumin 3.0 L (3.4-5.0) gm/dl Globulin 3.2 (2.5-4.0) gm/dl Albumin/Globulin Ratio 0.9 (0.9-2) TSH 5.830 H (0.300-4.500) uIu/ml Free T4 1.45 (0.8-1.6) ng/dl Urine Color Urine Appearance (Clear) Urine pH (4.5-7.5) Ur Specific Tok (1.000-1.030) Urine Protein (Negative) Urine Glucose (UA) (Negative) Urine Ketones (Negative) Urine Blood (Negative) Urine Nitrite (Negative) Urine Bilirubin (Negative) Urine Urobilinogen (Negative) Ur Leukocyte Esterase (Negative) Urine WBC (Auto) (0-5) /hpf Urine RBC (Auto) (0-4) /hpf U Hyaline Cast (Auto) (0-5) /lpf U Epithel Cells (Auto) (0-5) /lpf Urine Bacteria (Auto) (Negative) Amorphous Sediment (None Prsent) COVID-19 Eval Order SARS-CoV-2, RNA, NAAT (NEGATIVE) 08/13/20 08/13/20 08/13/20 Range/Units 16:19 17:24 17:24 WBC (4.8-10.8) K/uL RBC (4.2-5.4) M/uL Hgb (12.0-16.0) g/dL Hct (37-47) % MCV (80-100) fL MCH (25-34) pg MCHC (32-36) g/dL RDW Std Deviation (36.4-46.3) fL RDW Coeff of Leandro (11.5-14.5) % Plt Count (130-400) K/uL MPV (7.4-10.4) fL Immature Gran % (Auto) % Neut % (Auto) % Lymph % (Auto) % [place] % (Auto) % Eos % (Auto) % Baso % (Auto) % Neut # (Auto) (1.4-6.5) K/uL Lymph # (Auto) (1.2-3.4) K/uL [place] # (Auto) (0.11-0.59) K/uL Eos # (Auto) (0-0.5) K/uL Baso # (Auto) (0-0.2) K/uL Immature Gran # (Auto) (0.00-0.02) K/uL Sodium (136-145) mmol/L Potassium (3.5-5.1) mmol/L Chloride (98-107) mmol/L Carbon Dioxide (21-32) mmol/L Anion Gap (3-11) BUN (7-18) mg/dl Creatinine (0.6-1.2) mg/dl Est Cr Clr Drug Dosing ml/min Est GFR ( Amer) Est GFR (Non-Af Amer) BUN/Creatinine Ratio (10-20) Glucose (70-99) mg/dl Lactate (0.4-2.0) mmol/L Calcium (8.5-10.1) mg/dl Total Bilirubin (0.2-1) mg/dl AST (15-37) U/L ALT (12-78) U/L Alkaline Phosphatase (45-117) U/L Total Creatine Kinase (26-192) U/L Total Protein (6.4-8.2) gm/dl Albumin (3.4-5.0) gm/dl Globulin (2.5-4.0) gm/dl Albumin/Globulin Ratio (0.9-2) TSH (0.300-4.500) uIu/ml Free T4 (0.8-1.6) ng/dl Urine Color Dark Yellow Urine Appearance Turbid A (Clear) Urine pH 5.0 (4.5-7.5) Ur Specific Tok 1.020 (1.000-1.030) Urine Protein 2+ H (Negative) Urine Glucose (UA) Negative (Negative) Urine Ketones 1+ H (Negative) Urine Blood 3+ H (Negative) Urine Nitrite Positive A (Negative) Urine Bilirubin Negative (Negative) Urine Urobilinogen Negative (Negative) Ur Leukocyte Esterase 2+ H (Negative) Urine WBC (Auto) >30 H (0-5) /hpf Urine RBC (Auto) >30 H (0-4) /hpf U Hyaline Cast (Auto) 0 (0-5) /lpf U Epithel Cells (Auto) >30 H (0-5) /lpf Urine Bacteria (Auto) 4+ H (Negative) Amorphous Sediment Present A (None Prsent) COVID-19 Eval Order Covid19 IDNow [facility] SARS-CoV-2, RNA, NAAT NEGATIVE (NEGATIVE) Administered Medications Fluticasone/Vilanterol (Fluticasone/Vilanterol 100/25mcg 14 Puffs/Inhaler) 1 puffs INH DAILY AUGUSTINA; Protocol Stop: 09/13/20 08:59 Last Admin: 08/14/20 09:46 Dose: 1 puffs Documented by: [id number] Ceftriaxone Sodium (Rocephin) 1,000 mg in 50 mls @ 100 mls/hr IV Q24H AUGUSTINA Stop: 08/26/20 16:29 Last Infusion: 08/14/20 17:48 Dose: 0 mls/hr Documented by: [id number] Admin: 08/14/20 17:16 Dose: 100 mls/hr Documented by: [id number] Amiodarone HCl/Dextrose (Nexterone / D5w) 360 mg in 200 mls @ 16.667 mls/hr IV .Q12H AUGUSTINA Stop: 09/13/20 19:29 Last Admin: 08/14/20 20:56 Dose: 0.5 mg/min, 16.7 mls/hr Documented by: [id number] Cosigned by: [id number] Heparin Sodium/Dextrose (Heparin Sodium/Dextrose) 25,000 units in 500 mls @ 20 mls/hr IV .Q24H AUGUSTINA; Protocol Stop: 09/13/20 17:14 Last Admin: 08/14/20 18:11 Dose: 1,000 units/hr, 20 mls/hr Documented by: [id number] Cosigned by: [id number] Sodium Chloride (Nss 1000ml) 1,000 mls @ 150 mls/hr IV .Q6H40M AUGUSTINA Stop: 08/15/20 00:24 Last Admin: 08/14/20 17:47 Dose: 150 mls/hr Documented by: [id number] Levothyroxine Sodium (Levothyroxine Sodium 75 Mcg Tablet) 75 mcg PO DAILYBB [facility] Stop: 09/13/20 06:29 Last Admin: 08/14/20 05:46 Dose: 75 mcg Documented by: [id number] Montelukast Sodium (Montelukast Sodium 10 Mg Tablet) 10 mg PO QPM AUGUSTINA Stop: 09/12/20 20:59 Last Admin: 08/13/20 21:45 Dose: 10 mg Documented by: [id number] Multivitamins/Minerals (Calcium 600mg + Vit D 400 Iu Tab) 1 tab PO DAILY AUGUSTINA Stop: 09/13/20 08:59 Last Admin: 08/14/20 09:46 Dose: 1 tab Documented by: [id number] Pantoprazole Sodium (Pantoprazole 40 Mg Tab) 40 mg PO DAILY [facility] Stop: 09/13/20 08:59 Last Admin: 08/14/20 09:46 Dose: 40 mg Documented by: [id number] Polyethylene Glycol (Polyethylene (Miralax) 17 Gm Pack) 17 gm PO DAILY AUGUSTINA Stop: 09/13/20 08:59 Last Admin: 08/14/20 09:49 Dose: 17 gm Documented by: [id number] Pramipexole Dihydrochloride (Pramipexole Dihydrochlo 0.25 Mg Tab) 0.75 mg PO HS AUGUSTINA Stop: 09/12/20 20:59 Last Admin: 08/13/20 21:44 Dose: 0.75 mg Documented by: [id number] Tamoxifen Citrate (Tamoxifen Citrate 10 Mg Tablet) 20 mg PO DAILY AUGUSTINA Stop: 09/13/20 08:59 Last Admin: 08/14/20 09:46 Dose: 20 mg Documented by: [id number] Cosigned by: [id number] Vitamin B Complex (Vitamin B Complex Tab) 1 tab PO DAILY AUGUSTINA Stop: 09/13/20 08:59 Last Admin: 08/14/20 09:46 Dose: 1 tab Documented by: [id number] Vitamin D (Cholecalciferol 1,000 Units 25 Mcg Tab) 1,000 units PO DAILY AUGUSTINA Stop: 09/13/20 08:59 Last Admin: 08/14/20 09:46 Dose: 1,000 units Documented by: [id number] Discontinued Medications Amiodarone HCl (Amiodarone Iv Bolus & Drip) 1 ea IV NOW STA; Protocol Stop: 08/14/20 13:07 Last Admin: 08/14/20 13:55 Dose: 1 ea Documented by: [id number] Heparin Sodium/Dextrose (Heparin Iv Standard *No* Bolus) 1 ea IV Q20M AUGUSTINA; Protocol Stop: 08/14/20 19:15 Last Admin: 08/14/20 17:24 Dose: 1 ea Documented by: [id number] Sodium Chloride (Nss 1000ml) 1,000 mls @ 100 mls/hr IV .Q10H AUGUSTINA Stop: 08/14/20 00:44 Last Infusion: 08/14/20 01:39 Dose: 0 mls/hr Documented by: [id number] Admin: 08/13/20 15:23 Dose: 100 mls/hr Documented by: [id number] Sodium Chloride (Nss) 500 mls @ 999 mls/hr IV .Q31M AUGUSTINA Stop: 08/13/20 15:15 Last Infusion: 08/13/20 15:20 Dose: 0 mls/hr Documented by: [id number] Admin: 08/13/20 14:49 Dose: 999 mls/hr Documented by: [id number] Ceftriaxone Sodium (Rocephin) 1,000 mg in 50 mls @ 100 mls/hr IV NOW STA Stop: 08/13/20 17:32 Last Infusion: 08/13/20 17:48 Dose: 0 mls/hr Documented by: [id number] Admin: 08/13/20 17:18 Dose: 100 mls/hr Documented by: [id number] Sodium Chloride (Nss 1000ml) 1,000 mls @ 150 mls/hr IV .Q6H40M AUGUSTINA Stop: 08/14/20 23:27 Last Infusion: 08/14/20 17:16 Dose: 0 mls/hr Documented by: [id number] Admin: 08/14/20 09:50 Dose: 100 mls/hr Documented by: [id number] Infusion: 08/14/20 09:50 Dose: 100 mls/hr Documented by: [id number] Admin: 08/14/20 01:58 Dose: 100 mls/hr Documented by: [id number] Amiodarone HCl/Dextrose (Nexterone / D5w) 150 mg in 100 mls @ 600 mls/hr IV NOW ONE Stop: 08/14/20 13:24 Last Infusion: 08/14/20 15:09 Dose: 0 mls/hr Documented by: [id number] Cosigned by: [id number] Admin: 08/14/20 13:54 Dose: 600 mls/hr Documented by: [id number] Cosigned by: [id number] Amiodarone HCl/Dextrose (Nexterone / D5w) 360 mg in 200 mls @ 33.333 mls/hr IV ONE ONE Stop: 08/14/20 19:29 Last Admin: 08/14/20 13:55 Dose: 33.3 mls/hr Documented by: [id number] Cosigned by: [id number] Metoprolol Tartrate (Metoprolol Tartrate 1 Mg/Ml Vial) 5 mg IV NOW STA Stop: 08/14/20 12:43 Last Admin: 08/14/20 13:11 Dose: Not Given Documented by: [id number] Metoprolol Tartrate (Metoprolol Tartrate 1 Mg/Ml Vial) 2.5 mg IV NOW STA Stop: 08/14/20 12:43 Last Admin: 08/14/20 13:10 Dose: Not Given Documented by: [id number] Pneumococcal Polyvalent Vaccine (Pneumococcal Polysaccharide Vaccine 25mcg/0.5ml Vial/Syr) 25 mcg IM .ONCE ONE Stop: 08/13/20 21:16 Last Admin: 08/14/20 17:27 Dose: Not Given Documented by: [id number] Discharge Plan Visit Data Chief Complaint: Fall ED Provider: Ele Sheets Discharge Problem: Rhabdomyolysis, Fall, Acute UTI, CHI (closed head injury), Weakness Patient Disposition: Admitted As Inpatient Discharge Instructions Interventions: ED Discharge Assessment Last Done: 08/13/20 19:35 Discharge Problem: Rhabdomyolysis Qualifiers: Rhabdomyolysis type: non-traumatic Qualified Code(s): M62.82 - Rhabdomyolysis Fall Qualifiers: Encounter type: initial encounter Qualified Code(s): W19.XXXA - Unspecified fall, initial encounter CHI (closed head injury) Qualifiers: Encounter type: initial encounter Qualified Code(s): S09.90XA - Unspecified injury of head, initial encounter
--- NOTE | 2020-08-14 22:19 | Hospitalist Progress Note ---
Date of Service August 14, 2020 Assessment & Plan (1) Fall: Unclear etiology, unwitnessed. Last known well 11am yesterday. PT/OT evals pending CT A/P, Hip XRs. Despite no specific groin pain will image hips to make sure no fracture as patient poor historian. CT A/P would also to r/o lumbar vertebral fracture. Concern over possible Hip fracture noted on ct scan, however, MRI was ordered. (2) New onset a-fib: B/P is low. will transfer to PCU. will place on amiodarone drip. will place on heparin. will consult cardio. (3) UTI (urinary tract infection): Ceftriaxone 1g IV daily. Continue daily pending urine and blood cultures. (4) Abdominal distension: CT A/P without IV contrast pending. Mild generalized pain. Patient notes constipation. (5) Constipation: Add laxatives pending CT A/P to r/o bowel obstruction. (6) Rhabdomyolysis: Secondary to fall. CPK 7085 on arrival. Continue IV fluids. Given usually on 80mg furosemide monitor for pulmonary edema with this. Hold furosemide. (7) Left bundle branch block: Chronic - recorded in EHR 12/2019. No chest pain or shortness of breath to suggest ACS. (8) Restless legs: Continue pramipexole 0.75mg po HS (9) GERD (gastroesophageal reflux disease): Switch omeprazole to pantoprazole per hospital formulary. (10) Asthma: Continue montelukast and Advair Diskus or hospital formulary equivalent. (11) B12 deficiency anemia: Continue vitamin B complex (12) Hypothyroidism: TSH pending. Continue levothyroxine 75 mcg PO daily (13) DVT prophylaxis: Chemical prophylaxis deferred pending further workup. SCDs Admission and Anticipated Discharge Date Admission Date: August 13, 2020 Subjective She has no new complaints. Review of Systems Review of Systems: All systems reviewed & are unremarkable except as noted in HPI & below Physical Exam Physical Exam: Constitutional: well developed; no acute distress Eyes: PERRL, conjunctivae normal, anicteric sclerae Periorbital edema surrounding right eye, conjunctiva without hemorrhage. ENMT: Ears: no external ear abnormality Nose: no external nose abnormality Mouth: + dry oral mucous membranes Neck: normal visual inspection and trachea midline Respiratory: normal respiratory effort, lungs clear to auscultation Cardiovascular: Rate/Rhythm: regular rate and regular rhythm Heart Sounds: no murmur Extremities: normal capillary refill and + pedal edema (trace b/l ankles); no calf tenderness Gastrointestinal (Abdomen): Inspection/Auscultation: + abdomen distended and normal bowel sounds Percussion/Palpation: + abdomen tender (mild generalized) and abdomen soft; no guarding and abdomen not rigid Musculoskeletal: Head/Neck/Chest: + evidence of head trauma (right scalp edema and erythema) Knee: + skin erythema (over b/l knee scars) Skin: + decreased erythema (over b/l knees, pressure related without overt cellulitis changes) Trauma: + evidence of skin trauma (minor abrasions over toes); no periorbital ecchymosis (erythema without ecchymosis over right eye) Neurologic: CN's II-XI intact bilaterally, moves all extremities and awake; no focal motor deficits (no lateralizing deficit) and not confused Psychiatric: Orientation: alert and oriented x 3 Eye Contact: good eye contact Genitourinary: no CVA tenderness Results & Data Results & Data ([facility]) Vital Signs (Past 12 Hours) Vital Signs Temp Pulse Pulse Resp BP Pulse Ox 08/14/20 20:18 36.8 C 83 20 110/73 98 08/14/20 17:21 104 H 22 115/79 97 08/14/20 15:54 36.8 C 90 22 104/66 98 08/14/20 15:30 92 H 08/14/20 14:12 101/66 08/14/20 14:01 36.4 C L 115 H 16 100/63 94 08/14/20 13:24 131 H 20 86/59 L 92 08/14/20 13:13 134 H 16 92/65 L 92 08/14/20 13:08 118 H 92/64 L 08/14/20 13:04 84/60 L 08/14/20 13:02 131 H 89/60 L 08/14/20 12:32 36.5 C 134 H 20 97/61 L 96 08/14/20 12:15 129 H 08/14/20 11:11 36.8 C 92 H 19 96/62 L 98 PG Care Time/CCT Total # of Minutes Spent Total Time Spent with Patient: Total time spent is greater than 50% in coordination of care (as documented) at patient's floor/unit and/or counseling patient: Coding Level of Care Code 90787 Subseq Hosp Care Lvl 3 Diagnoses Fall W19.XXXA New onset a-fib I48.91 UTI (urinary tract infection) N39.0 Abdominal distension R14.0 Constipation K59.00 Rhabdomyolysis M62.82 Left bundle branch block I44.7 Restless legs G25.81 GERD (gastroesophageal reflux disease) K21.9 Asthma J45.909 B12 deficiency anemia D51.9 Hypothyroidism E03.9 DVT prophylaxis Z29.9 Time Spent (min) 35
[2020-08-14] MEDS: PRAMIPEXOLE DIHYDROCHLO 0.25 MG TAB PO SCH (22:45)
[2020-08-14] MEDS: MONTELUKAST SODIUM 10 MG TABLET PO SCH (22:46)
[2020-08-15 01:23] LABS: Partial Thromboplastin Ratio 1.4; Partial Thromboplastin Time 36.7 Seconds (21.0-31.0)
[2020-08-15] MEDS ORDERED: HEPARIN IV BOLUS 2,000 UNITS in SYRINGE 0 ML IV ONE ×2 (02:14→08:19)
--- NOTE | 2020-08-15 05:31 | Electrocardiogram Report ---
Test Reason : Blood Pressure : / mmHG Vent. Rate : 121 BPM Atrial Rate : 110 BPM P-R Int : 000 ms QRS Dur : 128 ms QT Int : 408 ms P-R-T Axes : 000 -16 162 degrees QTc Int : 579 ms Atrial fibrillation with rapid ventricular response Left bundle branch block Abnormal ECG When compared with ECG of 13-AUG-2020 14:42, Atrial fibrillation has replaced Sinus rhythm Confirmed by Mohinder Pinzon ([id number]) on 08/15/2020 5:31:40 AM Referred By: REFERRED SELF Confirmed By:Mohinder Pinzon
[2020-08-15] MEDS: LEVOTHYROXINE SODIUM 75 MCG TABLET PO SCH (06:14)
[2020-08-15] MEDS: AMIODARONE / D5W 360 MG/200 ML BAG IV SCH (07:37)
[2020-08-15] MEDS: FLUTICASONE/VILANTEROL 100/25MCG 14 PUFFS/INHALER INH SCH (08:23)
--- NOTE | 2020-08-15 08:50 | Magnetic Resonance Report ---
MR hip LT wo con HISTORY: 85 years-old Female left femoral neck fracture acute left hip pain status post fall COMPARISON: CT abdomen pelvis 08/13/2020 TECHNIQUE: Multiplanar multisequence MRI of the left hip is obtained without the use of IV contrast. FINDINGS: Gaseous distention of the rectum. Toscano catheter is noted within a decompressed urinary bladder lumen . Multiple Tarlov cysts of the sacrum. Diffuse subcutaneous body wall edema. Mild edema is noted trac scot within the right greater than left iliacus muscles. Trace dependent free fluid within the pelvis is noted. 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 Likely chronic bilateral lab ral tears. No definite evidence of bursitis. Multilevel intervertebral disc space narrowing with spon dylitic spurring and facet arthrosis of the lumbar spine. No acute fracture, dislocation, avascular n ecrosis or bone marrow edema. The previously questioned lucency of the left femoral neck on compariso n CT likely represented a vascular channel. IMPRESSION: 1. No acute fracture, dislocation, avascular necrosis or bone marrow edema. 2. Nonspecific body wall edema with trace dependent free fluid within the pelvis. 3. Decompressed urinary bladder with Toscano catheter. ACT 112: Negative or not required by law. The above report was generated using voice recognition software. It may contain grammatical, syntax o r spelling errors. Electronically signed by: Morteza Ortega M.D. 08/15/2020 8:49 AM
[2020-08-15 09:08] LABS: Partial Thromboplastin Ratio 2.5; Partial Thromboplastin Time 65.7 Seconds (21.0-31.0)
[2020-08-15] MEDS: CALCIUM 600MG + VIT D 400 IU TAB PO SCH (11:51)
[2020-08-15] MEDS: POLYETHYLENE (MIRALAX) 17 GM PACK PO SCH (11:51)
[2020-08-15] MEDS: TAMOXIFEN CITRATE 10 MG TABLET PO SCH (11:52)
[2020-08-15] MEDS: VITAMIN B COMPLEX TAB PO SCH (11:52)
[2020-08-15] MEDS: CHOLECALCIFEROL 1,000 UNITS 25 MCG TAB PO SCH (11:53)
[2020-08-15] MEDS: PANTOprazole 40 MG TAB PO SCH (15:02)
[2020-08-15] MEDS: cefTRIAXone SODIUM 1,000 MG/50 ML BAG IV SCH (16:33)
[2020-08-15] MEDS: HEPARIN SODIUM/DEXTROSE 25,000 UNITS/500 ML BAG IV SCH ×2 (16:33→21:54)
[2020-08-15] MEDS ORDERED: AMIODARONE 200 MG TAB PO ONE (19:00)
[2020-08-15 19:26] LABS: Creatinine Clr Calc Pharmacy 33.4 ml/min; Est GFR (African American) 59.4; Est GFR (Non-African American) 51.2
[2020-08-15] MEDS ORDERED: CEFDINIR 300 MG CAP PO ONE (19:30)
[2020-08-15] MEDS: APIXABAN 5 MG TABLET PO SCH (20:07)
[2020-08-15] MEDS: PRAMIPEXOLE DIHYDROCHLO 0.25 MG TAB PO SCH (20:08)
[2020-08-15] MEDS: MONTELUKAST SODIUM 10 MG TABLET PO SCH (20:09)
[2020-08-15] MEDS ORDERED: HEPARIN: STOP ORDER ONE (21:00)
--- NOTE | 2020-08-15 21:54 | Hospitalist Progress Note ---
Date of Service August 15, 2020 Assessment & Plan (1) Fall: Unclear etiology, unwitnessed. Last known well 11am yesterday. PT/OT evals pending CT A/P, Hip XRs. Despite no specific groin pain will image hips to make sure no fracture as patient poor historian. CT A/P would also to r/o lumbar vertebral fracture. Concern over possible Hip fracture noted on ct scan, however, MRI was ordered. (2) New onset a-fib: B/P is low. will transfer to PCU on 08/14 Now in sinus placed on amiodarone drip, will transition to and amiodarone PO 200 mg BID, elilexiiis will consult cardio. will dc heparin (3) UTI (urinary tract infection): Ceftriaxone 1g IV daily. Continue daily pending urine and blood cultures. cultures shows pansentivie, will order cefdinir and will dc ceftriaxone. (4) Abdominal distension: CT A/P without IV contrast pending. Mild generalized pain. Patient notes constipation. (5) Constipation: Add laxatives No signs of SBO. (6) Rhabdomyolysis: Secondary to fall. CPK 7085 on arrival. Continue IV fluids. Given usually on 80mg furosemide monitor for pulmonary edema with this. Hold furosemide. (7) Left bundle branch block: Chronic - recorded in EHR 12/2019. No chest pain or shortness of breath to suggest ACS. (8) Restless legs: Continue pramipexole 0.75mg po HS (9) GERD (gastroesophageal reflux disease): Switch omeprazole to pantoprazole per hospital formulary. (10) Asthma: Continue montelukast and Advair Diskus or hospital formulary equivalent. (11) B12 deficiency anemia: Continue vitamin B complex (12) Hypothyroidism: TSH pending. Continue levothyroxine 75 mcg PO daily (13) DVT prophylaxis: Chemical prophylaxis deferred pending further workup. SCDs Admission and Anticipated Discharge Date Admission Date: August 13, 2020 Subjective Patient reports feeling well. She has no new complaints. Review of Systems Review of Systems: All systems reviewed & are unremarkable except as noted in HPI & below Physical Exam Physical Exam: Constitutional: well developed; no acute distress Eyes: PERRL, conjunctivae normal, anicteric sclerae Periorbital edema surrounding right eye, conjunctiva without hemorrhage. ENMT: Ears: no external ear abnormality Nose: no external nose abnormality Mouth: + dry oral mucous membranes Neck: normal visual inspection and trachea midline Respiratory: normal respiratory effort, lungs clear to auscultation Cardiovascular: Rate/Rhythm: regular rate and regular rhythm Heart Sounds: no murmur Extremities: normal capillary refill and + pedal edema (trace b/l ankles); no calf tenderness Gastrointestinal (Abdomen): Inspection/Auscultation: + abdomen distended and normal bowel sounds Percussion/Palpation: + abdomen tender (mild generalized) and abdomen soft; no guarding and abdomen not rigid Musculoskeletal: Head/Neck/Chest: + evidence of head trauma (right scalp edema and erythema) Knee: + skin erythema (over b/l knee scars) Skin: + decreased erythema (over b/l knees, pressure related without overt cellulitis changes) Trauma: + evidence of skin trauma (minor abrasions over toes); no periorbital ecchymosis (erythema without ecchymosis over right eye) Neurologic: CN's II-XI intact bilaterally, moves all extremities and awake; no focal motor deficits (no lateralizing deficit) and not confused Psychiatric: Orientation: alert and oriented x 3 Eye Contact: good eye contact Genitourinary: no CVA tenderness Results & Data Results & Data ([facility]) Vital Signs (Past 12 Hours) Vital Signs Temp Pulse Pulse Resp BP Pulse Ox Pulse Ox 08/15/20 16:53 80 08/15/20 15:40 36.8 C 75 20 106/71 100 08/15/20 14:45 98 08/15/20 14:04 98 08/15/20 12:46 36.4 C L 76 20 123/72 94 08/15/20 10:17 63 PG Care Time/CCT Total # of Minutes Spent Total Time Spent with Patient: Total time spent is greater than 50% in coordination of care (as documented) at patient's floor/unit and/or counseling patient: Coding Level of Care Code 60253 Subseq Hosp Care Lvl 3 Diagnoses Fall W19.XXXA New onset a-fib I48.91 UTI (urinary tract infection) N39.0 Abdominal distension R14.0 Constipation K59.00 Rhabdomyolysis M62.82 Left bundle branch block I44.7 Restless legs G25.81 GERD (gastroesophageal reflux disease) K21.9 Asthma J45.909 B12 deficiency anemia D51.9 Hypothyroidism E03.9 DVT prophylaxis Z29.9 Time Spent (min) 35
[2020-08-16] MEDS: LEVOTHYROXINE SODIUM 75 MCG TABLET PO SCH (06:13)
[2020-08-16 07:27] LABS: Hematocrit (blood only) 27.8 % (37-47); Hemoglobin 9.3 g/dL (12.0-16.0); Mean Corpuscular Hemoglobin 30.6 pg (25-34); Mean Corpuscular Hgb Conc 33.5 g/dL (32-36); Mean Corpuscular Volume 91.4 fL (80-100); Mean Platelet Volume 8.6 fL (7.4-10.4); Platelet Count 211 K/uL (130-400); RDW Coefficient of Variation 14.2 % (11.5-14.5); RDW Standard Deviation 47.3 fL (36.4-46.3); Red Blood Count 3.04 M/uL (4.2-5.4); White Blood Count 7.77 K/uL (4.8-10.8)
[2020-08-16] MEDS: FLUTICASONE/VILANTEROL 100/25MCG 14 PUFFS/INHALER INH SCH (07:28)
[2020-08-16] MEDS: APIXABAN 5 MG TABLET PO SCH ×2 (07:29→22:28)
[2020-08-16] MEDS: VITAMIN B COMPLEX TAB PO SCH (07:30)
[2020-08-16] MEDS: AMIODARONE 200 MG TAB PO SCH ×2 (07:30→16:36)
[2020-08-16] MEDS: CEFDINIR 300 MG CAP PO SCH ×2 (07:30→22:28)
[2020-08-16] MEDS: PANTOprazole 40 MG TAB PO SCH (07:32)
[2020-08-16] MEDS: CALCIUM 600MG + VIT D 400 IU TAB PO SCH (07:32)
[2020-08-16] MEDS: CHOLECALCIFEROL 1,000 UNITS 25 MCG TAB PO SCH (07:32)
[2020-08-16] MEDS: TAMOXIFEN CITRATE 10 MG TABLET PO SCH (07:33)
[2020-08-16] MEDS: POLYETHYLENE (MIRALAX) 17 GM PACK PO SCH (07:37)
[2020-08-16 07:45] LABS: BUN Creatinine Ratio 19.6 (10-20); Calcium 7.7 mg/dl (8.5-10.1); Est GFR (African American) 68.5; Est GFR (Non-African American) 59.1; Potassium 4.2 mmol/L (3.5-5.1)
--- NOTE | 2020-08-16 12:35 | Hospitalist Progress Note ---
Date of Service August 16, 2020 Assessment & Plan (1) Fall: Unclear etiology, unwitnessed. Last known well 11am on 08/14, then found on 08/15. No imaging to note fractures. - PT/OT (2) New onset a-fib: Now in sinus. - Placed on amiodarone drip initially. - Now on amiodarone 200 mg PO BID. - Continue apixaban 5 mg PO BID - Cardiology consulted - Appreciate recs. (3) UTI (urinary tract infection): Urine cx from 08/13 grew Klebsiella. - Continue cefdinir. End date: 08/18/2020 for 5-day course. (4) Constipation: Add laxatives No signs of SBO. (5) Rhabdomyolysis: Secondary to fall. CPK 7085 on arrival. - Down to 1700 today. - Stop fluids for concern for volume overload. (6) Left bundle branch block: Chronic - recorded in EHR 12/2019. No chest pain or shortness of breath to suggest ACS. - Stable (7) Restless legs: - Continue pramipexole 0.75mg po HS (8) GERD (gastroesophageal reflux disease): Switch omeprazole to pantoprazole per hospital formulary. (9) Asthma: Continue montelukast and Advair Diskus or hospital formulary equivalent. (10) B12 deficiency anemia: Continue vitamin B complex (11) Hypothyroidism: TSH pending. Continue levothyroxine 75 mcg PO daily (12) DVT prophylaxis: SCDs & early ambulation Admission and Anticipated Discharge Date Admission Date: August 13, 2020 Subjective No focal signs today, other than she is weak. Reports no fevers/chills, chest pain, shortness of breath, abdominal pain, nausea, or vomiting. Physical Exam Constitutional: WD/WN, vitals as above Eyes: EOM intact bilaterally; no conjunctival abnormality ENMT: external ear and nose normal, oropharynx normal Neck: trachea midline, no thyromegaly normal visual inspection Respiratory: normal respiratory effort, lungs clear to auscultation no respiratory distress Cardiovascular: RRR, no murmur, no edema Gastrointestinal (Abdomen): Inspection/Auscultation: abdomen normal to inspection; abdomen not distended Musculoskeletal: no cyanosis or clubbing, extremities motor strength 5/5 Skin: no rashes, warm and dry + wound (On forehead and right nose) Neurologic: moves all extremities and awake Psychiatric: Orientation: alert, oriented to person and cooperative Results & Data Results & Data ([facility]) Vital Signs (Past 12 Hours) Vital Signs Temp Pulse Pulse Resp BP Pulse Ox 08/16/20 08:27 36.8 C 96 H 20 119/78 98 08/16/20 08:00 80 08/16/20 03:05 36.7 C 77 19 115/74 98 PG Care Time/CCT Total # of Minutes Spent Total Time Spent with Patient: Total time spent is greater than 50% in coordination of care (as documented) at patient's floor/unit and/or counseling patient: Coding Level of Care Code 69671 Subseq Hosp Care Lvl 2 Diagnoses Fall W19.XXXA New onset a-fib I48.91 UTI (urinary tract infection) N39.0 Constipation K59.00 Rhabdomyolysis M62.82 Left bundle branch block I44.7 Restless legs G25.81 GERD (gastroesophageal reflux disease) K21.9 Asthma J45.909 B12 deficiency anemia D51.9 Hypothyroidism E03.9 DVT prophylaxis Z29.9
[2020-08-16] MEDS: MONTELUKAST SODIUM 10 MG TABLET PO SCH (22:28)
[2020-08-16] MEDS: PRAMIPEXOLE DIHYDROCHLO 0.25 MG TAB PO SCH (22:28)
[2020-08-17] MEDS: LEVOTHYROXINE SODIUM 75 MCG TABLET PO SCH (06:16)
[2020-08-17 07:09] LABS: Hematocrit (blood only) 28.1 % (37-47); Hemoglobin 9.5 g/dL (12.0-16.0); Mean Corpuscular Hemoglobin 30.8 pg (25-34); Mean Corpuscular Hgb Conc 33.8 g/dL (32-36); Mean Corpuscular Volume 91.2 fL (80-100); Mean Platelet Volume 8.6 fL (7.4-10.4); Platelet Count 230 K/uL (130-400); RDW Coefficient of Variation 14.1 % (11.5-14.5); RDW Standard Deviation 46.9 fL (36.4-46.3); Red Blood Count 3.08 M/uL (4.2-5.4); White Blood Count 7.81 K/uL (4.8-10.8)
[2020-08-17 07:37] LABS: BUN Creatinine Ratio 17.7 (10-20); Calcium 7.8 mg/dl (8.5-10.1); Creatinine Clr Calc Pharmacy 36.6 ml/min; Est GFR (African American) 65.7; Est GFR (Non-African American) 56.7; Magnesium 2.3 mg/dl (1.8-2.4); Potassium 4.8 mmol/L (3.5-5.1)
[2020-08-17] MEDS: VITAMIN B COMPLEX TAB PO SCH (09:51)
[2020-08-17] MEDS: AMIODARONE 200 MG TAB PO SCH (09:51)
[2020-08-17] MEDS: APIXABAN 5 MG TABLET PO SCH (09:51)
[2020-08-17] MEDS: CALCIUM 600MG + VIT D 400 IU TAB PO SCH (09:51)
[2020-08-17] MEDS: CEFDINIR 300 MG CAP PO SCH (09:51)
[2020-08-17] MEDS: CHOLECALCIFEROL 1,000 UNITS 25 MCG TAB PO SCH (09:52)
[2020-08-17] MEDS: TAMOXIFEN CITRATE 10 MG TABLET PO SCH (09:52)
[2020-08-17] MEDS: PANTOprazole 40 MG TAB PO SCH (09:52)
[2020-08-17] MEDS: FLUTICASONE/VILANTEROL 100/25MCG 14 PUFFS/INHALER INH SCH (09:53)
[2020-08-17] MEDS: POLYETHYLENE (MIRALAX) 17 GM PACK PO SCH (09:53)
--- NOTE | 2020-08-17 14:08 | Discharge Summary ---
Date of Service August 17, 2020 Admission HPI Per Admitting Provider Chantal Rajan is an 85-year-old female who presents to the ER after being found on her face to the bottom of the steps on a hardwood floor. She usually lives with her son and [id number] but currently on vacation in [place] and her grandson was checking in on the patient. This is the first time he had checked on her in a few days. Last known well was yesterday at 11 AM when the family talked to her on the phone. Transported by EMS with urine soaked to abdomen, red face and swollen with right eye swollen shut. Abrasion to left middle toe and right third toe. Chantal is unable to give an accurate history of when or the circumstances surrounding the fall and changed her story to multiple providers and nursing staff. She thinks it may have been multiple times. Unknown if chest pain, shortness of breath or dizzy prior to falling. She was unable to get up after the fall but denies any specific pains currently. She denies any urinary or upper respiratory symptoms. In the ER CXR was unremarkable and CT head showed no acute intracranial abnormality. CPK 7085. UA grossly positive for infection. She was given IV NSS 500ml bolus for the rhabodomylolsis and started on ceftriaxone for the presumed UTI. Of note right femoral line was placed in the ER due to poor venous access. She was referred to medicine for admission and ongoing management of UTI, rhabdomyolysis and fall. Principal Diagnosis Pt states she feels at her usual today. She is a bit sore after her fall, but otherwise no major pain. She is eating without issue. Pt denies fever, SOB, chest pain, abd pain, n/v/c/d, LE swelling. Pt would like to go back to her daughter's home as she was prior. Discharge Exam Constitutional WD/WN, vitals as above Eyes normal visual wells by confrontation and + anicteric sclerae Neck normal visual inspection and trachea midline Respiratory normal respiratory effort, lungs clear to auscultation Cardiovascular Rate/Rhythm: regular rate; + abnormal rhythm Gastrointestinal (Abdomen) Inspection/Auscultation: abdomen not distended Percussion/Palpation: abdomen soft; abdomen nontender Musculoskeletal Head/Neck/Chest: normocephalic and head atraumatic Skin no rashes, warm and dry Neurologic awake; not confused Speech / Cognition: normal speech Psychiatric A+Ox3, euthymic affect Discharge Data Allergies Allergy/AdvReac Type Severity Reaction Status Date / Time No Known Drug Allergies Allergy Verified 05/26/20 11:01 Consultations 08/13/20 17:04 ED Decision to Admit Stat 08/14/20 13:38 Consult Cardiology Routine Ordered Studies 08/13/20 14:43 CT head/brain wo con Stat 08/13/20 17:35 CT abd pelvis wo con Stat 08/14/20 11:03 MR hip LT wo con Routine Hospital Course (1) Fall: Unclear etiology, unwitnessed. Last known well 11am on 08/14, then found on 08/15. No imaging to note fractures. - PT/OT recs for SNF, however pt and family prefer home with HHN (2) New onset a-fib: Now in sinus. - Placed on amiodarone drip initially. - Now on amiodarone 200 mg PO BID. - Continue apixaban 5 mg PO BID - Cardiology consulted - Appreciate recs Pt was on aspirin 81mg as oupt. With the addition of eliquis, I did elect to d/c aspirin as I see no hx of MO/stents/CVA and would like to prevent GIB in an 85 y/o F given she is outside of the now accepted age window of using aspirin for CAD prevention. This should be reviewed by PCP who is more familiar with pt (3) UTI (urinary tract infection): Urine cx from 08/13 grew Klebsiella. - Continue cefdinir. End date: 08/18/2020 for 5-day course. (4) Constipation: Add laxatives No signs of SBO. (5) Rhabdomyolysis: Secondary to fall. CPK 7085 on arrival. - Down to 1700 today. - Stop fluids for concern for volume overload. (6) Left bundle branch block: Chronic - recorded in EHR 12/2019. No chest pain or shortness of breath to suggest ACS. - Stable (7) Restless legs: - Continue pramipexole 0.75mg po HS (8) GERD (gastroesophageal reflux disease): Switch omeprazole to pantoprazole per hospital formulary. (9) Asthma: Continue montelukast and Advair Diskus or hospital formulary equivalent. (10) B12 deficiency anemia: Continue vitamin B complex (11) Hypothyroidism: TSH pending. Continue levothyroxine 75 mcg PO daily (12) DVT prophylaxis: SCDs & early ambulation Total Time Total Time Spent Total Time Spent (In Minutes): >30 Total Time Includes: Examination of the Patient, Discharge Planning, Medication Reconciliation, Communication With Other Providers and Other Discharge Plan Discharge Items Patient Disposition: Home - Home Health Services Reason For Visit: Rhabdomyolysis, UTI Discharge Diagnosis: Rhabdo after a fall, UTI, new onset afib Activity: Resume your previous activity Non-emergency contact: Primary Care Provider Call non-emergency contact if: you have any medication questions and your symptoms worsen Follow-up/Referrals: Diego Napier Jr, MD, FACC [Physician] - 08/20/20 11:30 am (1-2 WKS PER ORDER) Annika Cooper CRNP [Primary Care Provider] - 08/20/20 4:00 pm (1-2 weeks) Diet: Regular Addtl Attending Provider Instructions: You should follow up with your PCP in the next 1-2 weeks. You should be see sooner if your cardiology appt is cancelled due to weather or other circumstances. Pending Studies at Discharge: No Stand-Alone Forms: My [employer], Smoking Cessation Medications and DC Order Prescriptions: New amiodarone 200 mg Tablet 200 mg PO BIDM Qty: 60 RF: 0 cefdinir 300 mg Capsule 300 mg PO BID 2 Days Qty: 4 RF: 0 Eliquis 5 mg Tablet 5 mg PO BID Qty: 60 RF: 0 Continued cholecalciferol (vitamin D3) 25 mcg (1,000 unit) capsule 1,000 units PO DAILY Qty: 30 RF: 0 omeprazole 40 mg capsule,delayed release(DR/EC) 40 mg PO DAILY Qty: 90 RF: 3 clorazepate dipotassium 7.5 mg tablet 7.5 mg PO BID PRN (Reason: anxiety) Qty: 60 RF: 3 albuterol sulfate 90 mcg/actuation HFA aerosol inhaler 2 puff inhalation QID PRN (Reason: shortness of breath or wheezing) Qty: 18 RF: 3 cetirizine [Zyrtec] 10 mg tablet 10 mg PO DAILY PRN (Reason: allergy symptoms) Qty: 90 RF: 3 fluticasone propion-salmeterol [Advair Diskus] 100-50 mcg/dose blister with device 1 ea INH BID Qty: 60 RF: 3 levothyroxine 75 mcg tablet 75 mcg PO DAILY Qty: 90 RF: 3 tamoxifen 20 mg tablet 20 mg PO DAILY Qty: 90 RF: 3 montelukast [Singulair] 10 mg tablet 10 mg PO QPM Qty: 90 RF: 3 furosemide [Lasix] 40 mg tablet 80 mg PO DAILY Qty: 180 RF: 3 pramipexole 0.75 mg tablet 0.75 mg PO DAILY Qty: 90 RF: 3 vitamin B complex [B Complex-Vitamin B12] tablet 1 tab PO DAILY Qty: 30 RF: 0 melatonin 10 mg capsule 10 mg PO DAILY PRN (Reason: sleep) Qty: 30 RF: 0 calcium carb-D3-mag [id number] [phone] cr-tdta-za-mg tablet 3 tab PO DAILY Qty: 90 RF: 0 ferrous sulfate 27 mg iron tablet 27 mg PO DAILY Qty: 30 RF: 0 potassium 99 mg tablet 2.5 meq PO DAILY Qty: 90 RF: 2 sennosides [Senna Laxative] 8.6 mg tablet 8.6 mg PO DAILY PRN (Reason: constipation) Qty: 30 RF: 0 ipratropium-albuterol 0.5 mg-3 mg(2.5 mg base)/3 mL solution for nebulization 3 ml INH QID Qty: 180 RF: 0 nystatin 100,000 unit/gram powder 1 applic topical DAILY Qty: 30 RF: 1 ergocalciferol (vitamin D2) [Vitamin D2] 1,250 mcg (50,000 unit) capsule 50,000 units PO UD RF: 0 cyclobenzaprine 5 mg Tablet 0 mg PO UD PRN (Reason: muscle spasms) RF: 0 Discontinued aspirin 81 mg tablet,delayed release (DR/EC) 81 mg PO DAILY Qty: 30 RF: 2 Discharge Orders: Discharge Order (Routine); Ordered 08/17/20 Ordered By: Sienna Durham Admission Data Admit Date/Time: 08/13/20 17:53 Attending Provider: Sienna Durham Admit Provider: Rodrick Ann Primary Care Provider: Annika Cooper Other Providers: Mohinder Pinzon ; Edilberto Bhardwaj Other Interventions: Discharge Summary Assessment (RN) Last Done: 08/17/20 14:08 Coding Level of Care Code D/C Day Management >30 mins Diagnoses Fall W19.XXXA New onset a-fib I48.91 UTI (urinary tract infection) N39.0 Constipation K59.00 Rhabdomyolysis M62.82 Left bundle branch block I44.7 Restless legs G25.81 GERD (gastroesophageal reflux disease) K21.9 Asthma J45.909 B12 deficiency anemia D51.9 Hypothyroidism E03.9 DVT prophylaxis Z29.9
== END 2020-08-17 15:57 | disposition home health service (06) | DRG 565 ==
LOC: ED 14:32 → 2W 17:53 → SUATTDRO 17:53 → 2W 19:35 → 2S 08-14 13:48

== ENCOUNTER 2021-07-22 10:13 | Inpatient (IN) ==
[2021-07-22] MEDS ORDERED: SODIUM CHLORIDE 0.9% 500 ML IV STA (10:23)
--- NOTE | 2021-07-22 10:27 | Emergency Department Note ---
Impression & Plan Fall, AMS (altered mental status), Ankle fracture, Fracture of pubis without disruption of pelvic ring ED Provider Note NAME: AVINASH TOMLINSON AGE: 86 SEX: F : 1935 ARRIVES VIA: Ambulance INFORMANT: Patient ED PROVIDER(S): Dylan Malloy DO CHIEF COMPLAINT: fall last night, confusion HPI: Patient is an 86-year-old female presents to the ER following a fall last night onto her buttocks. She does not remember the event. She denies any headache or change in vision. No chest pain or shortness of breath. No belly pain, nausea, vomiting, or diarrhea. She does complain of some mild left ankle pain. No dysuria, urgency, or frequency. She was picked up by EMS and brought in. Daughter was present. Note that her confusion has resolved through transport. Initially when she picked up she was not really talking now just prior to arrival to the ER she was talking and communicating. Per the daughter she heard a thud at about 3 AM this morning. She went and she was sitting on her buttocks. She normally ambulates with a walker but following this she could not walk. They put her in bed. When she woke up this morning. She was also confused. She is normally completely oriented. ROS: See above HPI for pertinent positives & negatives. A total of 10 systems reviewed and were otherwise negative. PAST MEDICAL HISTORY:See Below PAST SURGICAL HISTORY:See Below FAMILY HISTORY:See Below SOCIAL HISTORY:See Below HOME MEDICATIONS:See Below ALLERGIES:See Below VITALS:See Below PHYSICAL EXAMINATION: GENERAL: Sitting up in bed, alert, well appearing, well nourished, no distress, non-toxic EYE EXAM: normal conjunctiva. PERRL and EOM's grossly intact. OROPHARYNX: no exudate, no erythema, lips, buccal mucosa, and tongue normal and mucous membranes are moist NECK: supple, no nuchal rigidity, no adenopathy, non-tender LUNGS: Clear to auscultation. Normal chest wall mechanics HEART: no murmurs, S1 normal and S2 normal ABDOMEN: abdomen soft, non-tender, normo-active bowel sounds, no masses, no rebound or guarding. BACK: Back is symmetrical on inspection and there is no deformity, no midline tenderness, no CVA tenderness. SKIN: no rashes and no bruising UPPER EXTREMITIES: upper extremities are grossly normal. LOWER EXTREMITIES: No pitting edema. Flexion-extension bilateral hips knees and ankles with mild tenderness over the left ankle. No bruising. Skin is intact. DPs 2 out of 4. Gross sensation intact. NEURO EXAM: Oriented to person, place but not year cranial nerves II-XII grossly intact, normal speech, no gross weakness of arms, no gross weakness of legs. MEDICAL DECISION MAKING: Patient is an 86-year-old female who presents the ER for the above-stated complaint. She is slightly more confused than baseline. She was brought in by EMS. IV was established blood work is obtained. Labs show no significant leukocytosis. Mild anemia. BMP with mild hypokalemia 3.2. LFTs bilirubin was unremarkable. Troponin was negative. UA was clean. Covid was negative. X- rays of the pelvis show a questionable left inferior pubic ring fracture in combination with left distal fibula fracture. Patient was updated bedside. She normally ambulates on her own. Did discuss with daughter. CT head and cervical spine were negative. Discussed the hospitalist admitted for further work-up of her confusion and now inability to ambulate. Triage Nursing notes reviewed. Limited review of prior medical records performed Vital Signs: reviewed and remarkable for no significant abnormalities Differential diagnosis: Differential diagnoses include major intracranial, cervical, spinal, thoracic, abdominal, pelvic and neurologic injury. Fracture, contusion, sprain, strain, laceration, abrasions included as well. ER treatment provided: See below Diagnostics interpreted by me: ECG: Sinus rhythm rate of 76 Left axis Left bundle branch block QTC 528 ST depressions in the high lateral leads Nonspecific ST wave changes in the lateral leads Cardiac Monitoring: An order was placed for continuous cardiac monitoring. The monitor shows a rate of 62 with sinus rhythm. Laboratory studies: As stated above and show below. Imaging studies: CT head cervical spine were negative X-rays of the pelvis show an inferior ring fracture X-rays of the ankle were unremarkable with exception of a small left distal fibula fracture Consultation(s): Discussed with Dante De La Cruz for further evaluation Procedures: none Critical Care: None Past Med/Surg History Medical History Arthritis Breast cancer CHI (closed head injury) Cholecystitis Depression with anxiety Hearing difficulty HX: breast cancer left breast (mastectomy) Hyperlipemia Hypertension Hypokalemia Hypothyroidism Left hip pain Migraine New onset a-fib Pneumonia Rhabdomyolysis Vision problem Surgical History H/O mastectomy left H/O: hysterectomy History of knee replacement BILATERAL Hx of cholecystectomy Family History Sister No problems noted. Mother Heart disease Hypertension Lung cancer Denies family history of Ovarian cancer Prostate cancer Breast cancer Colorectal cancer Social History Smoking Status: Never smoker Second Hand Exposure: Yes; Hx Alcohol Use: No Hx Substance Use: No Preferred Language: Chadian Beliefs That Will Affect Care: None marital status: / Current Living Situation: Family current occupational status: retired Feels Safe at Home: Yes Dental Care, Regularly: No Physical Activity Frequency: Does not Exercise Assistive Devices: Glasses, Oxygen - Continuous and Walker Allergies Allergies Allergy/AdvReac Type Severity Reaction Status Date / Time No Known Drug Allergies Allergy Verified 07/22/21 11:34 Home Meds Home Medications Medication Instructions Recorded Confirmed furosemide 40 mg tablet (Lasix) 40 mg PO BID 07/22/21 07/22/21 omeprazole 20 mg tablet,delayed 20 mg PO DAILY 07/22/21 07/22/21 release oxycodone 5 mg tablet 2.5 - 5 mg PO Q6H PRN 07/22/21 07/22/21 tamoxifen 10 mg tablet 10 mg PO DAILY 07/22/21 07/22/21 Previous Rx's Medication Instructions Recorded sennosides 8.6 mg tablet (Senna 8.6 mg PO DAILY PRN #30 tab 02/19/19 Laxative) vitamin B complex (B 1 tab PO DAILY #30 tab 02/19/19 Complex-Vitamin B12) apixaban 5 mg tablet (Eliquis) 5 mg PO BID #180 tab 03/12/21 cetirizine 10 mg tablet (Zyrtec) 10 mg PO DAILY PRN #90 tab 03/12/21 Results & Data (ED) Vital Signs Vital Signs - 24 hr 07/22/21 10:25 07/22/21 10:40 07/22/21 11:02 Temperature 36.8 C Temperature Source Oral Pulse Rate 77 71 72 Pulse Rate from SpO2 Sensor 77 70 Respiratory Rate 23 20 24 Blood Pressure 173/70 H Blood Pressure Mean 104 Pulse Oximetry 92 94 91 Oxygen Delivery Method Room Air Room Air Room Air Sepsis Recent Fever Within 48 Hours No Sepsis New/Unexplained Change in Mental Status Yes Sepsis Action Taken by Nursing No Action Required 07/22/21 11:14 07/22/21 11:23 07/22/21 12:00 Temperature Temperature Source Pulse Rate 66 73 Pulse Rate from SpO2 Sensor 69 Respiratory Rate 20 16 Blood Pressure 150/66 H Blood Pressure Mean 94 Pulse Oximetry 93 94 Oxygen Delivery Method Room Air Room Air Sepsis Recent Fever Within 48 Hours Sepsis New/Unexplained Change in Mental Status Sepsis Action Taken by Nursing 07/22/21 12:02 07/22/21 12:11 Temperature Temperature Source Pulse Rate 71 83 Pulse Rate from SpO2 Sensor Respiratory Rate 20 22 Blood Pressure 169/66 H 165/71 H Blood Pressure Mean 100 102 Pulse Oximetry Oxygen Delivery Method Sepsis Recent Fever Within 48 Hours Sepsis New/Unexplained Change in Mental Status Sepsis Action Taken by Nursing Laboratory Data Result diagrams: 07/22/21 10:23 07/22/21 10:23 Lab Results 07/22/21 07/22/21 07/22/21 Range/Units 10:23 10:23 10:30 WBC 7.81 (4.8-10.8) K/uL RBC 3.90 L (4.2-5.4) M/uL Hgb 11.8 L (12.0-16.0) g/dL Hct 35.7 L (37-47) % MCV 91.5 (80-100) fL MCH 30.3 (25-34) pg MCHC 33.1 (32-36) g/dL RDW Std Deviation 43.7 (36.4-46.3) fL RDW Coeff of Leandro 13.1 (11.5-14.5) % Plt Count 273 (130-400) K/uL MPV 8.7 (7.4-10.4) fL Immature Gran % (Auto) 0.6 % Neut % (Auto) 69.4 % Lymph % (Auto) 18.1 % Mccormick % (Auto) 9.0 % Eos % (Auto) 2.6 % Baso % (Auto) 0.3 % Neut # (Auto) 5.43 (1.4-6.5) K/uL Lymph # (Auto) 1.41 (1.2-3.4) K/uL Mccormick # (Auto) 0.70 H (0.11-0.59) K/uL Eos # (Auto) 0.20 (0-0.5) K/uL Baso # (Auto) 0.02 (0-0.2) K/uL Immature Gran # (Auto) 0.05 H (0.00-0.02) K/uL VBG pH (7.36-7.41) VBG pCO2 (38-50) mmHg VBG pO2 mmHg VBG HCO3 mmol/L VBG O2 Saturation % VBG Base Excess mEq/L Barometric Pressure mm/Hg Sodium 136 (136-145) mmol/L Potassium 3.2 L (3.5-5.1) mmol/L Chloride 92 L (98-107) mmol/L Carbon Dioxide 38 H (21-32) mmol/L Anion Gap 6 (3-11) BUN 15 (6-23) mg/dl Creatinine 1.03 (0.6-1.2) mg/dl Est Cr Clr Drug Dosing 29.9 ml/min Est GFR ( Amer) 56.2 ml/min Est GFR (Non-Af Amer) 48.5 ml/min BUN/Creatinine Ratio 14.6 (10-20) Glucose 97 (70-99(Fasting)) mg/dl Calcium 8.9 (8.5-10.1) mg/dl Total Bilirubin 0.7 (0.2-1.0) mg/dl AST 20 (13-39) U/L ALT 21 (7-52) U/L Alkaline Phosphatase 76 (34-104) U/L Troponin I 0.03 (0-0.04) ng/ml B-Natriuretic Peptide (0-100) pg/ml Total Protein 6.6 (6.0-8.3) gm/dl Albumin 3.6 (3.4-5.0) gm/dl Globulin 3.0 (2.5-4.0) gm/dl Albumin/Globulin Ratio 1.2 (0.9-2) Lipase 10 L (11-82) U/L Urine Color Yellow Urine Appearance Clear (Clear) Urine pH 7.5 (4.5-7.5) Ur Specific [place] 1.009 (1.000-1.030) Urine Protein Negative (Negative) Urine Glucose (UA) Negative (Negative) Urine Ketones Negative (Negative) Urine Blood Negative (Negative) Urine Nitrite Negative (Negative) Urine Bilirubin Negative (Negative) Urine Urobilinogen Negative (Negative) Ur Leukocyte Esterase Negative (Negative) SARS-CoV-2, RNA, NAAT (NEGATIVE) 07/22/21 07/22/21 07/22/21 Range/Units 11:55 13:57 13:57 WBC (4.8-10.8) K/uL RBC (4.2-5.4) M/uL Hgb (12.0-16.0) g/dL Hct (37-47) % MCV (80-100) fL MCH (25-34) pg MCHC (32-36) g/dL RDW Std Deviation (36.4-46.3) fL RDW Coeff of Leandro (11.5-14.5) % Plt Count (130-400) K/uL MPV (7.4-10.4) fL Immature Gran % (Auto) % Neut % (Auto) % Lymph % (Auto) % Mccormick % (Auto) % Eos % (Auto) % Baso % (Auto) % Neut # (Auto) (1.4-6.5) K/uL Lymph # (Auto) (1.2-3.4) K/uL Mccormick # (Auto) (0.11-0.59) K/uL Eos # (Auto) (0-0.5) K/uL Baso # (Auto) (0-0.2) K/uL Immature Gran # (Auto) (0.00-0.02) K/uL VBG pH 7.43 H (7.36-7.41) VBG pCO2 57 H (38-50) mmHg VBG pO2 35 mmHg VBG HCO3 37 mmol/L VBG O2 Saturation 63.8 % VBG Base Excess 11.3 mEq/L Barometric Pressure 737.0 mm/Hg Sodium (136-145) mmol/L Potassium (3.5-5.1) mmol/L Chloride (98-107) mmol/L Carbon Dioxide (21-32) mmol/L Anion Gap (3-11) BUN (6-23) mg/dl Creatinine (0.6-1.2) mg/dl Est Cr Clr Drug Dosing ml/min Est GFR ( Amer) ml/min Est GFR (Non-Af Amer) ml/min BUN/Creatinine Ratio (10-20) Glucose (70-99(Fasting)) mg/dl Calcium (8.5-10.1) mg/dl Total Bilirubin (0.2-1.0) mg/dl AST (13-39) U/L ALT (7-52) U/L Alkaline Phosphatase (34-104) U/L Troponin I (0-0.04) ng/ml B-Natriuretic Peptide 349 H (0-100) pg/ml Total Protein (6.0-8.3) gm/dl Albumin (3.4-5.0) gm/dl Globulin (2.5-4.0) gm/dl Albumin/Globulin Ratio (0.9-2) Lipase (11-82) U/L Urine Color Urine Appearance (Clear) Urine pH (4.5-7.5) Ur Specific [place] (1.000-1.030) Urine Protein (Negative) Urine Glucose (UA) (Negative) Urine Ketones (Negative) Urine Blood (Negative) Urine Nitrite (Negative) Urine Bilirubin (Negative) Urine Urobilinogen (Negative) Ur Leukocyte Esterase (Negative) SARS-CoV-2, RNA, NAAT NEGATIVE (NEGATIVE) Administered Medications Discontinued Medications Sodium Chloride (Nss) 500 mls @ 999 mls/hr IV .Q31M STA Stop: 07/22/21 10:53 Last Infusion: 07/22/21 11:59 Dose: 0 mls/hr Documented by: [id number] Admin: 07/22/21 11:17 Dose: 999 mls/hr Documented by: [id number] Imaging Data Radiologist's Impression: Cervical Spine CT 07/22/21 10:23 CT OF THE CERVICAL SPINE WITHOUT CONTRAST CLINICAL HISTORY: Fall. COMPARISON STUDY: No previous studies for comparison. TECHNIQUE: Helical axial images of the cervical spine were obtained without IV contrast. Sagittal and coronal reconstructions were viewed. Automated exposure control was utilized for the study. A dose lowering technique was utilized adhering to the principles of ALARA. FINDINGS: This exam is mildly compromised by motion artifact. No acute cervical spine fracture is identified. Craniocervical junction is intact. There is severe multilevel facet arthrosis. Moderate to severe multilevel disc space narrowing and osteophytosis is also present. Extensive degenerative changes at the C1-C2 articulation are present. There is no prevertebral edema. A 1.7 cm right parotid nodule is incidentally noted. Biapical opacities are partially imaged on this exam. These are nonspecific although favor scarring. IMPRESSION: 1. No acute cervical spine fracture or subluxation. Exam mildly compromised by motion artifact. 2. 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 ACT 112: Negative or not required by law. Electronically signed by: Srinivas Vines M.D. 07/22/2021 11:[address] 07/22/21 10:23 CT head/brain wo con CLINICAL HISTORY: head trauma Technique: Contiguous axial CT images of the head were acquired from the base of the skull to the vertex without intravenous contrast administration. Images were viewed in brain, subdural and bone windows. Automated dose lowering techniques and/or adjustment according to patient size were utilized for this exam. Comparison: None available at the time of this dictation. Findings: The exam is limited by patient motion. The ventricles, basal cisterns, and cerebral sulci are normal. There is no acute intracranial hemorrhage or evidence of acute territorial infarction. Neither mass effect, shift of the midline structures, nor abnormal extra-axial fluid collections are shown. Opacification of some ethmoid and left frontal air cells is noted. The orbits appear normal. There are no acute fractures of the calvaria or scalp swelling. Impression: Highly limited exam due to patient motion. However there is no evidence of intracranial hemorrhage or skull fracture given these limitations. Sinus disease is noted. ACT 112: Negative or not required by law. Electronically signed by: Rohan Martinez M.D. 07/22/2021 11:12 AM Ankle X-Ray 07/22/21 10:31 XR ankle LT min 3V routine CLINICAL HISTORY: Left ankle pain. COMPARISON: None FINDINGS: Alignment of the left ankle is anatomic. Lateral ankle soft tissue swelling is noted. Cortical thickening and step-off of the distal diaphysis and metadiaphysis of the left fibula favors a healed fracture. However, there is lucency within the fibular tip which may reflect an acute nondisplaced fracture. No acute fracture of the distal left tibia is present. Posterior and plantar calcaneal spurring is present. IMPRESSION: 1. Lateral ankle soft tissue swelling. Lucency within the fibular tip which favors an acute nondisplaced fracture. 2. Cortical thickening and step-off of the distal diaphysis and metadiaphysis of the left fibula which favors an old fracture. ACT 112: Negative or not required by law. Electronically signed by: Srinivas Vines M.D. 07/22/2021 10:59 AM Chest X-Ray 07/22/21 10:31 XR chest 1V portable CLINICAL HISTORY: Altered mental status. COMPARISON STUDY: Chest radiograph August 13, 2020. FINDINGS: There is no pneumothorax or pleural effusion. Mild cardiomegaly is unchanged. There is no evidence for pulmonary edema. Apparent upper lung interstitial thickening is likely chronic. No consolidation is identified. Left axillary surgical clips are noted. IMPRESSION: No acute cardiopulmonary findings. Cardiomegaly. ACT 112: Negative or not required by law. Electronically signed by: Srinivas Vines M.D. 07/22/2021 11:01 AM Pelvis X-Ray 07/22/21 10:31 XR pelvis 1-2V routine HISTORY: 86 years-old Female fall acute pelvic pain status post fall COMPARISON: CT abdomen pelvis 08/13/2020 TECHNIQUE: AP view of the pelvis FINDINGS: Demineralized appearance the bones. Moderate loss or arthritis of the hips. No definite acute fracture or dislocation. There is an ill-defined linear lucency within the left inferior pubic ramus. IMPRESSION: 1. No definite acute fracture or dislocation. 2. Ill-defined linear lucency of the left inferior pubic ramus is favored to be artifactual. A subtle acute nondisplaced fracture is considered less likely. ACT 112: Negative or not required by law. The above report was generated using voice recognition software. It may contain grammatical, syntax or spelling errors. Electronically signed by: Sotero Ortega M.D. 07/22/2021 11:13 AM Discharge Plan Visit Data Chief Complaint: Confusion Stated Complaint: FALL, AMS ED Provider: Dylan Malloy Discharge Problem: Fall, AMS (altered mental status), Ankle fracture, Fracture of pubis without disruption of pelvic ring Forms Stand Alone Forms: [facility] Prescriptions Prescriptions: No Action cetirizine [Zyrtec] 10 mg tablet 10 mg PO DAILY PRN (Reason: allergy symptoms) Qty: 90 RF: 3 Eliquis 5 mg tablet 5 mg PO BID Qty: 180 RF: 3 vitamin B complex [B Complex-Vitamin B12] tablet 1 tab PO DAILY Qty: 30 RF: 0 sennosides [Senna Laxative] 8.6 mg tablet 8.6 mg PO DAILY PRN (Reason: constipation) Qty: 30 RF: 0 tamoxifen 10 mg Tablet 10 mg PO DAILY RF: 0 omeprazole 20 mg Tablet,Delayed Release (Dr/Ec) 20 mg PO DAILY RF: 0 furosemide [Lasix] 40 mg tablet 40 mg PO BID RF: 0 oxycodone 5 mg tablet 2.5 - 5 mg PO Q6H PRN (Reason: pain) RF: 0 Referrals Referrals: Annika Salgado CRNP [Primary Care Provider] - Discharge Problem: Fall Qualifiers: Encounter type: initial encounter Qualified Code(s): W19.XXXA - Unspecified fall, initial encounter AMS (altered mental status) Qualifiers: Altered mental status type: unspecified Qualified Code(s): R41.82 - Altered mental status, unspecified Ankle fracture Qualifiers: Encounter type: initial encounter Fracture type: closed Laterality: unspecified laterality Qualified Code(s): S82.899A - Other fracture of unspecified lower leg, initial encounter for closed fracture
[2021-07-22 10:34] LABS: Basophils # (auto) 0.02 K/uL (0-0.2); Basophils % (auto) 0.3 %; Eosinophils % (auto) 2.6 %; Hematocrit (blood only) 35.7 % (37-47); Hemoglobin 11.8 g/dL (12.0-16.0); Immature Granulocytes # (auto) 0.05 K/uL (0.00-0.02); Immature Granulocytes % (auto) 0.6 %; Lymphocytes # (auto) 1.41 K/uL (1.2-3.4); Lymphocytes % (auto) 18.1 %; Mean Corpuscular Hemoglobin 30.3 pg (25-34); Mean Corpuscular Hgb Conc 33.1 g/dL (32-36); Mean Corpuscular Volume 91.5 fL (80-100); Mean Platelet Volume 8.7 fL (7.4-10.4); Neutrophils # (auto) 5.43 K/uL (1.4-6.5); Neutrophils % (auto) 69.4 %; Platelet Count 273 K/uL (130-400); RDW Coefficient of Variation 13.1 % (11.5-14.5); RDW Standard Deviation 43.7 fL (36.4-46.3); White Blood Count 7.81 K/uL (4.8-10.8)
[2021-07-22 10:50] LABS: Albumin Globulin Ratio 1.2 (0.9-2); Albumin Level 3.6 gm/dl (3.4-5.0); BUN Creatinine Ratio 14.6 (10-20); Bilirubin,Total 0.7 mg/dl (0.2-1.0); Calcium 8.9 mg/dl (8.5-10.1); Creatinine Clr Calc Pharmacy 29.9 ml/min; Est GFR (African American) 56.2 ml/min; Est GFR (Non-African American) 48.5 ml/min; Potassium 3.2 mmol/L (3.5-5.1); Total Protein 6.6 gm/dl (6.0-8.3)
[2021-07-22 10:56] LABS: Appearance Urine Clear (Clear); Bilirubin Urine Negative (Negative); Blood Urine Negative (Negative); Color Urine Yellow; Glucose Urine UA Negative (Negative); Ketones Urine Negative (Negative); Leukocyte Esterase Urine Negative (Negative); Nitrite Urine Negative (Negative); Protein Urine Negative (Negative); Specific Gravity Urine 1.009 (1.000-1.030); Urobilinogen Urine Negative (Negative); pH Urine 7.5 (4.5-7.5)
--- NOTE | 2021-07-22 11:05 | XRay Report ---
XR chest 1V portable CLINICAL HISTORY: Altered mental status. COMPARISON STUDY: Chest radiograph August 13, 2020. FINDINGS: There is no pneumothorax or pleural effusion. Mild cardiomegaly is unchanged. There is no e vidence for pulmonary edema. Apparent upper lung interstitial thickening is likely chronic. No consol idation is identified. Left axillary surgical clips are noted. IMPRESSION: No acute cardiopulmonary findings. Cardiomegaly. ACT 112: Negative or not required by law. Electronically signed by: Srinivas Vines M.D. 07/22/2021 11:01 AM
--- NOTE | 2021-07-22 11:05 | XRay Report ---
XR ankle LT min 3V routine CLINICAL HISTORY: Left ankle pain. COMPARISON: None FINDINGS: Alignment of the left ankle is anatomic. Lateral ankle soft tissue swelling is noted. Romel ical thickening and step-off of the distal diaphysis and metadiaphysis of the left fibula favors a he aled fracture. However, there is lucency within the fibular tip which may reflect an acute nondisplac ed fracture. No acute fracture of the distal left tibia is present. Posterior and plantar calcaneal s purring is present. IMPRESSION: 1. Lateral ankle soft tissue swelling. Lucency within the fibular tip which favors an acute nondispla tiesha fracture. 2. Cortical thickening and step-off of the distal diaphysis and metadiaphysis of the left fibula whic h favors an old fracture. ACT 112: Negative or not required by law. Electronically signed by: Srinivas Vines M.D. 07/22/2021 10:59 AM
--- NOTE | 2021-07-22 11:13 | CT Scan Report ---
CT head/brain wo con CLINICAL HISTORY: head trauma Technique: Contiguous axial CT images of the head were acquired from the base of the skull to the chau amaya without intravenous contrast administration. Images were viewed in brain, subdural and bone [facility]. Automated dose lowering techniques and/or adjustment according to patient size were utilized for this exam. Comparison: None available at the time of this dictation. Findings: The exam is limited by patient motion. The ventricles, basal cisterns, and cerebral sulci are normal. There is no acute intracranial hemorrh age or evidence of acute territorial infarction. Neither mass effect, shift of the midline structures , nor abnormal extra-axial fluid collections are shown. Opacification of some ethmoid and left frontal air cells is noted. The orbits appear normal. There a re no acute fractures of the calvaria or scalp swelling. Impression: Highly limited exam due to patient motion. However there is no evidence of intracranial hemorrhage or skull fracture given these limitations. Sinus disease is noted. ACT 112: Negative or not required by law. Electronically signed by: Rohan Martinez M.D. 07/22/2021 11:12 AM
--- NOTE | 2021-07-22 11:14 | XRay Report ---
XR pelvis 1-2V routine HISTORY: 86 years-old Female fall acute pelvic pain status post fall COMPARISON: CT abdomen pelvis 08/13/2020 TECHNIQUE: AP view of the pelvis FINDINGS: Demineralized appearance the bones. Moderate loss or arthritis of the hips. No definite acute fractur e or dislocation. There is an ill-defined linear lucency within the left inferior pubic ramus. IMPRESSION: 1. No definite acute fracture or dislocation. 2. Ill-defined linear lucency of the left inferior pubic ramus is favored to be artifactual. A subtle acute nondisplaced fracture is considered less likely. ACT 112: Negative or not required by law. The above report was generated using voice recognition software. It may contain grammatical, syntax o r spelling errors. Electronically signed by: Sotero Ortega M.D. 07/22/2021 11:13 AM
--- NOTE | 2021-07-22 11:32 | CT Scan Report ---
CT OF THE CERVICAL SPINE WITHOUT CONTRAST CLINICAL HISTORY: Fall. COMPARISON STUDY: No previous studies for comparison. TECHNIQUE: Helical axial images of the cervical spine were obtained without IV contrast. Sagittal a nd coronal reconstructions were viewed. Automated exposure control was utilized for the study. A do se lowering technique was utilized adhering to the principles of ALARA. FINDINGS: This exam is mildly compromised by motion artifact. No acute cervical spine fracture is cristina ntified. Craniocervical junction is intact. There is severe multilevel facet arthrosis. Moderate to s evere multilevel disc space narrowing and osteophytosis is also present. Extensive degenerative kelly es at the C1-C2 articulation are present. There is no prevertebral edema. A 1.7 cm right parotid nodu le is incidentally noted. Biapical opacities are partially imaged on this exam. These are nonspecific although favor scarring. IMPRESSION: 1. No acute cervical spine fracture or subluxation. Exam mildly compromised by motion artifact. 2. 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 ACT 112: Negative or not required by law. Electronically signed by: Srinivas Vines M.D. 07/22/2021 11:31 AM
[2021-07-22 12:11] LABS: Troponin I 0.03 ng/ml (0-0.04)
--- NOTE | 2021-07-22 12:53 | History & Physical Report ---
Date of Service July 22, 2021 Assessment & Plan (1) Fall: Plan: Patient had a fall. Appears to have been a mechanical fall. Patient may have an acute nondisplaced fibular fracture. may benefit from an ortho consult. fall maybe secondary to metabolic encephalopathy. will obtain VBG as bMP showed elevated BICARB. Perhaps contraction alkalosis. will start IVF and closley monitor patient. will obtain PT/E OT E (2) Paroxysmal atrial fibrillation: Plan: Rate controlled. Resume Eliquis (3) Hypothyroidism: Plan: resume home meds (4) Asthma: Plan: noted in history, not on any medications History of Present Illness Chief Complaint: mechanical fall Primary Care Provider: HARSHA Menezes 86 yo female is a poor historian. She arrives to the ER after sustaining a mechanical fall overnight onto her buttocks. History obtained by daughter phone: Milvia and chart review. Overnight patient fell, around 3AM. Patient does not recall event. The daughter reports that she heard a thud and ran towards the patient and she was on the ground sitting up. It does not appear that patient hit her head. Patient was confused and unable to ambulate well. Her daughter reports that over the past 24 hours prior to the fall, the patient she had become more and more confused. Daughter reports she has been taking her medications including lasix 40 mg PO BID. Daughter reports that she is normally oriented. Due to this change of mental status, patient was brought in. Allergies Allergy/AdvReac Type Severity Reaction Status Date / Time No Known Drug Allergies Allergy Verified 07/22/21 11:34 Home Medications Medication Instructions Recorded Confirmed Type sennosides 8.6 mg tablet (Senna 8.6 mg PO DAILY PRN #30 tab 02/19/19 07/22/21 Rx Laxative) vitamin B complex (B 1 tab PO DAILY #30 tab 02/19/19 07/22/21 Rx Complex-Vitamin B12) apixaban 5 mg tablet (Eliquis) 5 mg PO BID #180 tab 03/12/21 07/22/21 Rx cetirizine 10 mg tablet (Zyrtec) 10 mg PO DAILY PRN #90 tab 03/12/21 07/22/21 Rx furosemide 40 mg tablet (Lasix) 40 mg PO BID 07/22/21 07/22/21 History omeprazole 20 mg tablet,delayed 20 mg PO DAILY 07/22/21 07/22/21 History release oxycodone 5 mg tablet 2.5 - 5 mg PO Q6H PRN 07/22/21 07/22/21 History tamoxifen 10 mg tablet 10 mg PO DAILY 07/22/21 07/22/21 History Past Med/Surg History Medical History Arthritis Breast cancer CHI (closed head injury) Cholecystitis Depression with anxiety Hearing difficulty HX: breast cancer left breast (mastectomy) Hyperlipemia Hypertension Hypokalemia Hypothyroidism Left hip pain Migraine New onset a-fib Pneumonia Rhabdomyolysis Vision problem Surgical History H/O mastectomy left H/O: hysterectomy History of knee replacement BILATERAL Hx of cholecystectomy Family History Sister No problems noted. Mother Heart disease Hypertension Lung cancer Denies family history of Ovarian cancer Prostate cancer Breast cancer Colorectal cancer Social History Smoking Status: Never smoker Second Hand Exposure: Yes; Hx Alcohol Use: No Hx Substance Use: No Preferred Language: Kinyarwanda Communication Ability: Effective Net Software Architect Required: No Beliefs That Will Affect Care: None marital status: / Current Living Situation: Family current occupational status: retired Feels Safe at Home: Yes Dental Care, Regularly: No Physical Activity Frequency: Does not Exercise Assistive Devices: Cane and Walker Review of Systems Review of Systems: Unobtainable due to cognitive status Physical Exam Constitutional: WD/WN, vitals as above Eyes: PERRL, conjunctivae normal, anicteric sclerae ENMT: external ear and nose normal, oropharynx normal (except for dry mucous membranes) Respiratory: normal respiratory effort, lungs clear to auscultation Cardiovascular: RRR, no murmur, no edema Gastrointestinal (Abdomen): normal bowel sounds, soft, nontender, no hepatosplenomegaly Musculoskeletal: mild tenderness to left ankle Neurologic: moves all 4extremities Psychiatric: Orientation: alert Results & Data Results & Data ([facility]) Vital Signs (Past 12 Hours) Vital Signs Temp Pulse Resp BP Pulse Ox 07/22/21 12:11 83 22 165/71 H 07/22/21 12:02 71 20 169/66 H 07/22/21 12:00 73 16 07/22/21 11:23 94 07/22/21 11:14 66 20 150/66 H 93 07/22/21 11:02 72 24 91 07/22/21 10:40 36.8 C 71 20 173/70 H 94 07/22/21 10:25 77 23 92 PG Care Time/CCT Total # of Minutes Spent Total Time Spent with Patient: Total time spent is greater than 50% in coordination of care (as documented) at patient's floor/unit and/or counseling patient: Coding Level of Care Code 66988 Initial Inpt Care Lvl 3 Diagnoses Paroxysmal atrial fibrillation I48.0 Fall W19.XXXA Encounter type: initial encounter Hypothyroidism E03.9 Asthma J45.909 (1) Fall Encounter type: initial encounter Qualified Code(s): W19.XXXA - Unspecified fall, initial encounter
--- NOTE | 2021-07-22 13:12 | Electrocardiogram Report ---
Test Reason : Blood Pressure : / mmHG Vent. Rate : 076 BPM Atrial Rate : 076 BPM P-R Int : 176 ms QRS Dur : 142 ms QT Int : 470 ms P-R-T Axes : 049 -24 131 degrees QTc Int : 528 ms Poor data quality, interpretation may be adversely affected Normal sinus rhythm Left bundle branch block Abnormal ECG When compared with ECG of 14-AUG-2020 12:29, Sinus rhythm has replaced Atrial fibrillation Vent. rate has decreased BY 45 BPM Confirmed by Cristino Barnett ([id number]) on 07/22/2021 1:11:53 PM Referred By: REFERRED SELF Confirmed By:Farhad Barnett
[2021-07-22] MEDS ORDERED: SENNA 8.6 MG TAB PO PRN (13:24)
[2021-07-22] MEDS ORDERED: PHARMACIST DISCHARGE MED REC CONSULT PRN (14:20)
[2021-07-22 14:24] LABS: Base Excess VBG 11.3 mEq/L; Oxygen Saturation VBG 63.8 %; pH VBG 7.43 (7.36-7.41)
[2021-07-22] MEDS: APIXABAN 5 MG TABLET PO SCH (20:25)
[2021-07-23 05:49] LABS: Basophils # (auto) 0.04 K/uL (0-0.2); Basophils % (auto) 0.7 %; Eosinophils # (auto) 0.47 K/uL (0-0.5); Eosinophils % (auto) 8.2 %; Hematocrit (blood only) 31.5 % (37-47); Hemoglobin 10.1 g/dL (12.0-16.0); Immature Granulocytes # (auto) 0.03 K/uL (0.00-0.02); Immature Granulocytes % (auto) 0.5 %; Lymphocytes # (auto) 1.07 K/uL (1.2-3.4); Lymphocytes % (auto) 18.7 %; Mean Corpuscular Hemoglobin 29.9 pg (25-34); Mean Corpuscular Hgb Conc 32.1 g/dL (32-36); Mean Corpuscular Volume 93.2 fL (80-100); Mean Platelet Volume 8.3 fL (7.4-10.4); Monocytes # (auto) 0.71 K/uL (0.11-0.59); Monocytes % (auto) 12.4 %; Neutrophils % (auto) 59.5 %; Platelet Count 246 K/uL (130-400); RDW Coefficient of Variation 13.1 % (11.5-14.5); RDW Standard Deviation 44.4 fL (36.4-46.3); Red Blood Count 3.38 M/uL (4.2-5.4); White Blood Count 5.72 K/uL (4.8-10.8)
[2021-07-23 06:11] LABS: BUN Creatinine Ratio 16.9 (10-20); Calcium 7.9 mg/dl (8.5-10.1); Chol HDL Ratio 3.6 (0-5); Creatinine Clr Calc Pharmacy 37.1 ml/min; Potassium 2.9 mmol/L (3.5-5.1)
[2021-07-23 08:02] LABS: Estimated Average Glucose 108 mg/dl; Hemoglobin A1C 5.4 % (4.5-5.6)
[2021-07-23] MEDS: PANTOprazole 40 MG TAB PO SCH (08:02)
[2021-07-23] MEDS: APIXABAN 5 MG TABLET PO SCH ×2 (08:02→20:55)
[2021-07-23] MEDS: VITAMIN B COMPLEX TAB PO SCH (08:02)
[2021-07-23] MEDS: TAMOXIFEN CITRATE 10 MG TABLET PO SCH (08:02)
--- NOTE | 2021-07-23 08:42 | Hospitalist Progress Note ---
Date of Service July 23, 2021 Assessment & Plan (1) Fall: Plan: Patient had a fall. --> Prior hospitalization Jul 2020 for fall/rhabdo/new on- set afib and placed on eliquis/amiodarone at that time and ASA was d/c to prevent GIB in 86yo patient --> EKG on admission NSR LBBB (rhythm replaced afib compared to EKG jul 2020) Trop 0.03 Appears to have been a mechanical fall per report on admission Patient may have an acute nondisplaced fibular fracture -- seen on imaging Ortho consulted for acute fibular fracture VBG pH 7.43, pCO2 57 CK 62 CHF --> BNP elevated 349. On lasix 40mg BID. CXR cardiomegaly without pulm congestion Sodium 135 --> combination of CHF/undertreated hypothyroidism? check TSH as well Will not give IVF Most recent ECHO --> 06/09/2020 --> LV size/function normal. Moderate concentric LVH. Grade II diastolic dysfunction. LA mildly dilated. Mod-Severe mitral annuular calcification. RVSP elevated at 30-40mmhg. Check ECHO Lasix 20mg IV x 1, potassium 20meq BID scheduled given already hypokalemia with L 2.9 (given 40meq K this morning, additional 40meq this afternoon) --> Of note, patient on lasix 40mg BID at home but appears only on potassium 10meq BID -- kel given decreased appetite, could be having symptoms of hypokalemia for quite some time. Does not appear to have been done previously --> Lasix resumed 40mg BID for this evening. may need increased dosing but will need to monitor I&O/weights Check TSH ALso check AM cortisol PT/OT consultations pending Also concerning would be her hx of breast ca and apparent confusion (UA on admit negative but reported to be foul smelling by nursing and asked to repeat) would have be if she had breast ca w mets to brain. CT on admission negative for acute process but very limited due to motion (2) Hypokalemia: Plan: K on admit 3.2, no replacement ordered. Had also admitted to poor po intake Potassium 40meq x1 this morning, again this afternoon on 10meq BID CIRCULAR SAW FILER, increased to 20meq BID. as giving lasix 20mg IV now, resume lasix 40mg BID for this evening (BNP elevated) Mag checked and wnl Cortisol level in AM Suspect she could also have been having some level of hypokalemia for some time/needing additional supplementation given lasix 40mg BID for her heart failure. Do not seen any previous echos in system despite patient with new onset afib/fall admitted Jul 2020 --> obtaining as above (3) Paroxysmal atrial fibrillation: Plan: Rate controlled. no longer on amiodarone, did not have f/u after hospital stay last admission --> will arrange at d/c for continued follow up Resume Eliquis Regular on exam but if concerns for arrhythmia would transfer to telemetry Of note, aspirin 81mg was discontinued at that time to prevent any bleeding although no hx of GIB --> Will resume ASA 81mg daily for prevention. CT on admission negative for CVA. MRI brain pending given hx breast ca/falls. Unable to observe for clonus given ankle fractures (4) Hypothyroidism: Plan: on synthroid 75mcg daily CIRCULAR SAW FILER-- > will order as not ordered on admission and not on medication list --> will also check TSH given constipation issues/elevation during last admission but no adjustment (but was normal 1 month following) also of note, was admitted with rhabdo at that time TSH low -- decreased Synthroid to 50mcg AM. Repeat TFT outpatient (5) Asthma: Plan: Per recent PCP note: daily Advair and prn albuterol HFA or duonebs as needed. Occasional cough/wheezing depending on allergens. Is short of breath with activity, but thinks this is due to deconditioning and her asthma. Feels her dyspnea is getting worse. Weight is stable. Denies chest pain, palpitations. Continue to take daily zyrtec and singulair as well. (6) HX: breast cancer: Plan: s/p left mastectomy. Patient on tamoxifen, continued daily falls concerning for malignancy, check MRI F/u for further imaging L breast in area of scar tissue --> may need done inpatient if above unrevealing (7) B12 deficiency anemia: Plan: also with RLS -- mirapex 0.75mg HS. ?low ferritin Hgb 10.1, normocytic with MCV 93.2 however given continued falls and SOB with exertion, checking iron studies/B12/folate. also checking ECHO as above per med rec from PCP, patient to be on ferrous sulfate 27mg daily, B completx, also lists sodium chloride tablets 1gm daily? --> will need clarification on medications at home and would highly suggest discontinuation as patient with elevated BNP as above Plan: Ortho consult pending Added tylenol for pain control, topical voltaren as needed ECHO, TSH, B12/folate/iron studies pending Considering MRI brain given hx breast ca and multiple falls/confusion Repeating UA given report of foul smelling urine Admission and Anticipated Discharge Date Admission Date: July 22, 2021 Supervising Physician Co-Signing Physician Notes Attending Attestation - Chart reviewed, care plan d/w PA Elida Martinez. I agree w/ the wayne components of her documentation. Rodrick Turner MD Subjective patient eval this morning. sitting up in chair pain controlled with ordered medications --> pain to R ankle/mcadams, L ankle. Stated she remembers falling, multiple times. Not tripped on anything but felt like legs giving out on her. No loss of consciousness. no palpitations/shortness of breath (except with exertion), no chest pain. endorses leg swelling recently. daughter helps her with medications at home leg weakness but denied frequency/urgency/burning or hematuria, however per nursing, urine very foul smelling and will attempt to collect urine/treat if needed also discussed electrolyte abn -- she endorses she has improved appetite today but had not been eating very well at home. Review of Systems Review of Systems: All systems reviewed & are unremarkable except as noted in HPI & below Physical Exam Constitutional: WD/WN, vitals as above Eyes: PERRL, conjunctivae normal, anicteric sclerae ENMT: external ear and nose normal, oropharynx normal Respiratory: normal respiratory effort, lungs clear to auscultation Cardiovascular: regular rate, rhythm (occ PAC), +murmur, no LE edema Chest (Breasts): Additional Comments: s/p L mastectomy Gastrointestinal (Abdomen): normal bowel sounds, soft, nontender, no hepatosplenomegaly Musculoskeletal: mild tenderness to left ankle, R calf chronic venous stasis changes noted Skin: cool, dry, scattered ecchymosis, venous stasis changes Neurologic: moves all 4 extremities Psychiatric: alert, oriented to person/place but not time states she remembers falling and that "legs gave out on her" Genitourinary: no castro Results & Data Results & Data ([facility]) Vital Signs (Past 12 Hours) Vital Signs Temp Pulse Resp BP Pulse Ox 07/22/21 23:22 36.8 C 68 14 104/49 L 94 Laboratory Results 07/23/21 07/23/21 07/23/21 Range/Units 09:11 09:11 09:11 WBC (4.8-10.8) K/uL RBC (4.2-5.4) M/uL Hgb (12.0-16.0) g/dL Hct (37-47) % MCV (80-100) fL MCH (25-34) pg MCHC (32-36) g/dL RDW Std Deviation (36.4-46.3) fL RDW Coeff of Leandro (11.5-14.5) % Plt Count (130-400) K/uL MPV (7.4-10.4) fL Immature Gran % (Auto) % Neut % (Auto) % Lymph % (Auto) % [place] % (Auto) % Eos % (Auto) % Baso % (Auto) % Neut # (Auto) (1.4-6.5) K/uL Lymph # (Auto) (1.2-3.4) K/uL [place] # (Auto) (0.11-0.59) K/uL Eos # (Auto) (0-0.5) K/uL Baso # (Auto) (0-0.2) K/uL Immature Gran # (Auto) (0.00-0.02) K/uL Sodium (136-145) mmol/L Potassium (3.5-5.1) mmol/L Chloride (98-107) mmol/L Carbon Dioxide (21-32) mmol/L Anion Gap (3-11) BUN (6-23) mg/dl Creatinine (0.6-1.2) mg/dl Est Cr Clr Drug Dosing ml/min Est GFR ( Amer) ml/min Est GFR (Non-Af Amer) ml/min BUN/Creatinine Ratio (10-20) Glucose (70-99(Fasting)) mg/dl Estimat Average Glucose mg/dl Hemoglobin A1c (4.5-5.6) % Calcium (8.5-10.1) mg/dl Magnesium 1.9 Iron 50 (35-150) mcg/dl TIBC 247 L (250-450) mcg/dl Unsaturated IBC 197 (155-355) mcg/dl Transferrin % Sat 20 (15-50) % Total Creatine Kinase 62 Triglycerides (0-150) mg/dl Cholesterol (0-200) mg/dl LDL Cholesterol, Calc mg/dl VLDL Cholesterol, Calc (0-30) mg/dl HDL Cholesterol mg/dl Cholesterol/HDL Ratio (0-5) Vitamin B12 > 1500 H (211-911) pg/ml Folate 13.13 (>5.38) ng/ml TSH 0.254 L (0.300-4.500) uIu/ml 07/23/21 07/23/21 07/23/21 Range/Units 09:11 05:34 05:34 WBC (4.8-10.8) K/uL RBC (4.2-5.4) M/uL Hgb (12.0-16.0) g/dL Hct (37-47) % MCV (80-100) fL MCH (25-34) pg MCHC (32-36) g/dL RDW Std Deviation (36.4-46.3) fL RDW Coeff of Leandro (11.5-14.5) % Plt Count (130-400) K/uL MPV (7.4-10.4) fL Immature Gran % (Auto) % Neut % (Auto) % Lymph % (Auto) % [place] % (Auto) % Eos % (Auto) % Baso % (Auto) % Neut # (Auto) (1.4-6.5) K/uL Lymph # (Auto) (1.2-3.4) K/uL [place] # (Auto) (0.11-0.59) K/uL Eos # (Auto) (0-0.5) K/uL Baso # (Auto) (0-0.2) K/uL Immature Gran # (Auto) (0.00-0.02) K/uL Sodium 135 L (136-145) mmol/L Potassium 2.9 L (3.5-5.1) mmol/L Chloride 96 L (98-107) mmol/L Carbon Dioxide 33 H (21-32) mmol/L Anion Gap 6 (3-11) BUN 14 (6-23) mg/dl Creatinine 0.83 (0.6-1.2) mg/dl Est Cr Clr Drug Dosing 37.1 ml/min Est GFR ( Amer) 73.0 ml/min Est GFR (Non-Af Amer) 63.0 ml/min BUN/Creatinine Ratio 16.9 (10-20) Glucose 80 (70-99(Fasting)) mg/dl Estimat Average Glucose 108 mg/dl Hemoglobin A1c 5.4 (4.5-5.6) % Calcium 7.9 L (8.5-10.1) mg/dl Magnesium Cancelled Iron (35-150) mcg/dl TIBC (250-450) mcg/dl Unsaturated IBC (155-355) mcg/dl Transferrin % Sat (15-50) % Total Creatine Kinase Cancelled Triglycerides 106 (0-150) mg/dl Cholesterol 114 (0-200) mg/dl LDL Cholesterol, Calc 61 mg/dl VLDL Cholesterol, Calc 21 (0-30) mg/dl HDL Cholesterol 32 mg/dl Cholesterol/HDL Ratio 3.6 (0-5) Vitamin B12 (211-911) pg/ml Folate (>5.38) ng/ml TSH (0.300-4.500) uIu/ml 07/23/21 Range/Units 05:34 WBC 5.72 (4.8-10.8) K/uL RBC 3.38 L (4.2-5.4) M/uL Hgb 10.1 L (12.0-16.0) g/dL Hct 31.5 L (37-47) % MCV 93.2 (80-100) fL MCH 29.9 (25-34) pg MCHC 32.1 (32-36) g/dL RDW Std Deviation 44.4 (36.4-46.3) fL RDW Coeff of Leandro 13.1 (11.5-14.5) % Plt Count 246 (130-400) K/uL MPV 8.3 (7.4-10.4) fL Immature Gran % (Auto) 0.5 % Neut % (Auto) 59.5 % Lymph % (Auto) 18.7 % [place] % (Auto) 12.4 % Eos % (Auto) 8.2 % Baso % (Auto) 0.7 % Neut # (Auto) 3.40 (1.4-6.5) K/uL Lymph # (Auto) 1.07 L (1.2-3.4) K/uL [place] # (Auto) 0.71 H (0.11-0.59) K/uL Eos # (Auto) 0.47 (0-0.5) K/uL Baso # (Auto) 0.04 (0-0.2) K/uL Immature Gran # (Auto) 0.03 H (0.00-0.02) K/uL Sodium (136-145) mmol/L Potassium (3.5-5.1) mmol/L Chloride (98-107) mmol/L Carbon Dioxide (21-32) mmol/L Anion Gap (3-11) BUN (6-23) mg/dl Creatinine (0.6-1.2) mg/dl Est Cr Clr Drug Dosing ml/min Est GFR ( Amer) ml/min Est GFR (Non-Af Amer) ml/min BUN/Creatinine Ratio (10-20) Glucose (70-99(Fasting)) mg/dl Estimat Average Glucose mg/dl Hemoglobin A1c (4.5-5.6) % Calcium (8.5-10.1) mg/dl Magnesium Iron (35-150) mcg/dl TIBC (250-450) mcg/dl Unsaturated IBC (155-355) mcg/dl Transferrin % Sat (15-50) % Total Creatine Kinase Triglycerides (0-150) mg/dl Cholesterol (0-200) mg/dl LDL Cholesterol, Calc mg/dl VLDL Cholesterol, Calc (0-30) mg/dl HDL Cholesterol mg/dl Cholesterol/HDL Ratio (0-5) Vitamin B12 (211-911) pg/ml Folate (>5.38) ng/ml TSH (0.300-4.500) uIu/ml Diagnostic Findings Cervical Spine CT 07/22/21 10:23 CT OF THE CERVICAL SPINE WITHOUT CONTRAST CLINICAL HISTORY: Fall. COMPARISON STUDY: No previous studies for comparison. TECHNIQUE: Helical axial images of the cervical spine were obtained without IV contrast. Sagittal and coronal reconstructions were viewed. Automated exposure control was utilized for the study. A dose lowering technique was utilized adhering to the principles of ALARA. FINDINGS: This exam is mildly compromised by motion artifact. No acute cervical spine fracture is identified. Craniocervical junction is intact. There is severe multilevel facet arthrosis. Moderate to severe multilevel disc space narrowing and osteophytosis is also present. Extensive degenerative changes at the C1-C2 articulation are present. There is no prevertebral edema. A 1.7 cm right parotid nodule is incidentally noted. Biapical opacities are partially imaged on this exam. These are nonspecific although favor scarring. IMPRESSION: 1. No acute cervical spine fracture or subluxation. Exam mildly compromised by motion artifact. 2. 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 ACT 112: Negative or not required by law. Electronically signed by: Srinivas Vines M.D. 07/22/2021 11:[address] 07/22/21 10:23 CT head/brain wo con CLINICAL HISTORY: head trauma Technique: Contiguous axial CT images of the head were acquired from the base of the skull to the vertex without intravenous contrast administration. Images were viewed in brain, subdural and bone windows. Automated dose lowering techniques and/or adjustment according to patient size were utilized for this exam. Comparison: None available at the time of this dictation. Findings: The exam is limited by patient motion. The ventricles, basal cisterns, and cerebral sulci are normal. There is no acute intracranial hemorrhage or evidence of acute territorial infarction. Neither ma ss effect, shift of the midline structures, nor abnormal extra-axial fluid collections are shown. Opacification of some ethmoid and left frontal air cells is noted. The orbits appear normal. There are no acute fractures of the calvaria or scalp swelling. Impression: Highly limited exam due to patient motion. However there is no evidence of intracranial hemorrhage or skull fracture given these limitations. Sinus disease is noted. ACT 112: Negative or not required by law. Electronically signed by: Rohan Martinez M.D. 07/22/2021 11:12 AM Ankle X-Ray 07/22/21 10:31 XR ankle LT min 3V routine CLINICAL HISTORY: Left ankle pain. COMPARISON: None FINDINGS: Alignment of the left ankle is anatomic. Lateral ankle soft tissue swelling is noted. Cortical thickening and step-off of the distal diaphysis and metadiaphysis of the left fibula favors a healed fracture. However, there is lucency within the fibular tip which may reflect an acute nondisplaced fracture. No acute fracture of the distal left tibia is present. Posterior and plantar calcaneal spurring is present. IMPRESSION: 1. Lateral ankle soft tissue swelling. Lucency within the fibular tip which favors an acute nondisplaced fracture. 2. Cortical thickening and step-off of the distal diaphysis and metadiaphysis of the left fibula which favors an old fracture. ACT 112: Negative or not required by law. Electronically signed by: Srinivas Vines M.D. 07/22/2021 10:59 AM Chest X-Ray 07/22/21 10:31 XR chest 1V portable CLINICAL HISTORY: Altered mental status. COMPARISON STUDY: Chest radiograph August 13, 2020. FINDINGS: There is no pneumothorax or pleural effusion. Mild cardiomegaly is unchanged. There is no evidence for pulmonary edema. Apparent upper lung interstitial thickening is likely chronic. No consolidation is identified. Left axillary surgical clips are noted. IMPRESSION: No acute cardiopulmonary findings. Cardiomegaly. ACT 112: Negative or not required by law. Electronically signed by: Srinivas Vines M.D. 07/22/2021 11:01 AM Pelvis X-Ray 07/22/21 10:31 XR pelvis 1-2V routine HISTORY: 86 years-old Female fall acute pelvic pain status post fall COMPARISON: CT abdomen pelvis 08/13/2020 TECHNIQUE: AP view of the pelvis FINDINGS: Demineralized appearance the bones. Moderate loss or arthritis of the hips. No definite acute fracture or dislocation. There is an ill-defined linear lucency within the left inferior pubic ramus. IMPRESSION: 1. No definite acute fracture or dislocation. 2. Ill-defined linear lucency of the left inferior pubic ramus is favored to be artifactual. A subtle acute nondisplaced fracture is considered less likely. ACT 112: Negative or not required by law. The above report was generated using voice recognition software. It may contain grammatical, syntax or spelling errors. Electronically signed by: Sotero Ortega M.D. 07/22/2021 11:13 AM PG Care Time/CCT Total # of Minutes Spent Total Time Spent with Patient: Total time spent is greater than 50% in coordination of care (as documented) at patient's floor/unit and/or counseling patient: Coding Level of Care Code 66470 Subseq Hosp Care Lvl 3 Diagnoses Fall W19.XXXA Encounter type: initial encounter Paroxysmal atrial fibrillation I48.0 Hypothyroidism E03.9 Asthma J45.909 HX: breast cancer Z85.3 B12 deficiency anemia D51.9 Hypokalemia E87.6 (1) Fall Encounter type: initial encounter Qualified Code(s): W19.XXXA - Unspecified fall, initial encounter
[2021-07-23] MEDS ORDERED: POTASSIUM CHLORIDE CRTAB 20 MEQ TABCR PO STA ×2 (08:43→15:37)
[2021-07-23 09:53] LABS: Magnesium 1.9 mg/dl (1.7-2.4)
[2021-07-23 10:42] LABS: Folate (Folic Acid) 13.13 ng/ml (>5.38)
[2021-07-23 10:43] LABS: Vitamin B12 > 1500 pg/ml (211-911)
[2021-07-23] MEDS ORDERED: FUROSEMIDE INJ 20 MG/2 ML VIAL IV ONE (15:36)
[2021-07-23] MEDS ORDERED: ACETAMINOPHEN 325 MG TAB PO PRN (15:50)
[2021-07-23] MEDS ORDERED: STAT IV STA (16:04)
[2021-07-23] MEDS ORDERED: CALCIUM GLUCONATE 10% 1,000 MG in DEXTROSE 5% 50 ML IV ONE (16:04)
--- NOTE | 2021-07-23 16:36 | XCELERA ---
[id number]
[2021-07-23] MEDS: FUROSEMIDE 40 MG TAB PO SCH (17:07)
[2021-07-23] MEDS: DICLOFENAC SOD 1% GEL 100 GM TUBE EXT SCH ×2 (17:08→20:53)
[2021-07-23] MEDS ORDERED: GADOBUTROL 65ML VIAL IV ONE (18:34)
--- NOTE | 2021-07-23 18:59 | Magnetic Resonance Report ---
MR brain wo/w con CLINICAL HISTORY: weakness, fall, hx breast ca TECHNIQUE: Multiplanar and multisequence MR images of the brain were obtained prior to and following administration of gadolinium contrast. Comparison: None available at the time of this dictation. FINDINGS: No abnormal restricted diffusion is identified. Foci of T2 and FLAIR hyperintensity are noted in the paraventricular areas consistent with chronic small vessel ischemic disease. Ex vacuo ventriculomegal y and sulcal enlargement is noted compatible with diffuse encephalomalacia. There is no evidence of a cute intraparenchymal hemorrhage. No extra axial fluid collections are seen. There are no masses, mas s effect, or midline shift. No abnormal enhancement is seen. The corpus callosum, pituitary gland, a nd cerebellar tonsils appear grossly unremarkable. Flow voids of the major intracranial arterial vessels are identified. The imaged portions of the para nasal sinuses, mastoid air cells, and orbits are unremarkable. IMPRESSION: No evidence of acute infarct. No enhancing lesions or edema to suggest metastatic disease in this pat ient with history of breast cancer. ACT 112: Negative or not required by law. Electronically signed by: Rohan Martinez M.D. 07/23/2021 6:57 PM
[2021-07-23 20:17] LABS: BUN Creatinine Ratio 17.2 (10-20); Calcium 8.8 mg/dl (8.5-10.1); Creatinine Clr Calc Pharmacy 33.1 ml/min; Est GFR (African American) 63.6 ml/min; Est GFR (Non-African American) 54.9 ml/min; Potassium 3.7 mmol/L (3.5-5.1)
[2021-07-23] MEDS: POTASSIUM CHLORIDE PWD 20 MEQ PACK PO SCH (20:54)
[2021-07-23 21:37] LABS: Appearance Urine Clear (Clear); Bacteria Urine Automated 4+ (Negative); Bilirubin Urine Negative (Negative); Blood Urine Negative (Negative); Cast Urine Automated 0 /lpf (0-5); Color Urine Yellow; Epithelial Cell Urine Auto 20-30 /lpf (0-5); Glucose Urine UA Negative (Negative); Ketones Urine Negative (Negative); Leukocyte Esterase Urine Trace (Negative); Nitrite Urine Negative (Negative); Protein Urine Negative (Negative); RBC Urine Automated 0-4 /hpf (0-4); Specific Gravity Urine 1.009 (1.000-1.030); Urobilinogen Urine Negative (Negative); pH Urine 7.5 (4.5-7.5)
--- NOTE | 2021-07-24 05:35 | Consultation Report ---
DATE OF CONSULTATION: 07/23/2021. HISTORY OF PRESENT ILLNESS: This is an 86-year-old female seen on 07/23/2021 at the request of Dr. Alphonse Rogel regarding a left ankle fracture. Apparently, the patient was in her normal state of he alth and she had a mechanical fall. She was discovered by her daughter, noted the [facility]00 a.m. The patient does not recall the event. EMS was contacted and the patient was transfer red to [facility]. The patient has had some worsening confusion. She was evaluate d by the medical team. Radiographs were obtained of her left ankle among other body regions. She wa s then noted to have a distal fibula fracture. Orthopedic consultation was requested. She had no ot her associated injuries. No head or neck trauma. No other associated injuries. PAST MEDICAL HISTORY: Arthritis, breast cancer, closed head injury, cholecystitis, depression with a nxiety, hearing difficulty, hyperlipidemia, hypertension, hypokalemia, hypothyroidism, left hip pain, migraine, atrial fibrillation, pneumonia, rhabdomyolysis, and vision problems. PAST SURGICAL HISTORY: Left mastectomy, hysterectomy, bilateral knee replacements, cholecystectomy. ALLERGIES: No known drug allergies. MEDICATIONS: Sennosides, vitamin B complex, apixaban, cetirizine, furosemide, omeprazole, oxycodone, and tamoxifen. SOCIAL HISTORY: The patient denies tobacco, alcohol, or drug use. She is a . She lives with h family. She is retired. She uses a cane and a walker on occasion. PHYSICAL EXAMINATION: This is an 86-year-old female, sitting in hospital bedside chair. Nurse was katy albarran. She is conversant and pleasant; however, somewhat confused. She mentions [employer] mul tiple times. The patient has a clear accent reflecting origins from [place]. She is a poor h istorian. No acute distress. Normocephalic, atraumatic. Focused examination of the left ankle demo nstrates atrophic skin, warm, dry and intact. Multiple minor varicosities. Dorsalis pedis and poste rior tibial pulses are palpable. Feet are warm. She has tenderness to palpation of the distal fibul a on the left. Fibular shaft appears to be intact. She has some discomfort with active and passive r deanna of motion related to the distal fibula, albeit without significant discomfort. Minor edema at t he left lateral ankle. No significant ecchymosis. RADIOGRAPHS: Demonstrate a remote healed distal lateral malleolar fracture and a more acute distal f ibular avulsion type fracture from the tip of the fibula. Osteopenia is evident. 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 IMPRESSION: 1. Left distal fibula fracture, acute. 2. Chronic lateral malleolus fracture, healed. 3. Osteopenia. 4. Status post fall. RECOMMENDATION: Supportive care and management. Should the patient voice any concerns regarding dis comfort related to the ankle, she may benefit from a lace-up ankle brace. Otherwise, observation and nonoperative management would be indicated. Ice to the site p.r.n. Follow up with Dr. George at [facility] within the next 10 to 14 days for repeat radiographs and followup examination. Thank you for the opportunity to consult in the care of this patient. Job ID: [id number]
[2021-07-24] MEDS: LEVOTHYROXINE SODIUM 50 MCG TABLET PO SCH (05:43)
[2021-07-24] MEDS ORDERED: LEVOTHYROXINE SODIUM 75 MCG TABLET PO SCH (06:30)
[2021-07-24 07:29] LABS: Basophils # (auto) 0.02 K/uL (0-0.2); Basophils % (auto) 0.3 %; Eosinophils # (auto) 0.42 K/uL (0-0.5); Eosinophils % (auto) 6.8 %; Hematocrit (blood only) 34.4 % (37-47); Hemoglobin 11.2 g/dL (12.0-16.0); Immature Granulocytes # (auto) 0.05 K/uL (0.00-0.02); Immature Granulocytes % (auto) 0.8 %; Lymphocytes % (auto) 21.1 %; Mean Corpuscular Hemoglobin 29.9 pg (25-34); Mean Corpuscular Hgb Conc 32.6 g/dL (32-36); Mean Corpuscular Volume 91.7 fL (80-100); Mean Platelet Volume 8.8 fL (7.4-10.4); Monocytes # (auto) 0.62 K/uL (0.11-0.59); Monocytes % (auto) 10.1 %; Neutrophils # (auto) 3.74 K/uL (1.4-6.5); Neutrophils % (auto) 60.9 %; Platelet Count 290 K/uL (130-400); RDW Coefficient of Variation 12.9 % (11.5-14.5); RDW Standard Deviation 43.4 fL (36.4-46.3); Red Blood Count 3.75 M/uL (4.2-5.4); White Blood Count 6.15 K/uL (4.8-10.8)
[2021-07-24 07:54] LABS: Calcium 8.5 mg/dl (8.5-10.1); Est GFR (African American) 75.2 ml/min; Est GFR (Non-African American) 64.8 ml/min; Magnesium 1.8 mg/dl (1.7-2.4); Potassium 3.7 mmol/L (3.5-5.1)
[2021-07-24] MEDS: CETIRIZINE HCL 10 MG TABLET PO SCH (08:08)
[2021-07-24] MEDS: PANTOprazole 40 MG TAB PO SCH (08:08)
[2021-07-24] MEDS: TAMOXIFEN CITRATE 10 MG TABLET PO SCH (08:08)
[2021-07-24] MEDS: FUROSEMIDE 40 MG TAB PO SCH ×2 (08:08→17:34)
[2021-07-24] MEDS: VITAMIN B COMPLEX TAB PO SCH (08:08)
[2021-07-24] MEDS: APIXABAN 5 MG TABLET PO SCH ×2 (08:08→20:34)
[2021-07-24] MEDS: POTASSIUM CHLORIDE PWD 20 MEQ PACK PO SCH ×4 (08:09→20:34)
--- NOTE | 2021-07-24 08:14 | Hospitalist Progress Note ---
Date of Service July 24, 2021 Assessment & Plan (1) Fall: Plan: Patient had a fall. --> Prior hospitalization Jul 2020 for fall/rhabdo/new on- set afib and placed on eliquis/amiodarone at that time and ASA was d/c to prevent GIB in 86yo patient --> EKG on admission NSR LBBB (rhythm replaced afib compared to EKG jul 2020) Trop 0.03 Appears to have been a mechanical fall per report on admission VBG pH 7.43, pCO2 [address] head negative for CVA MRI of brain negative of evidence of metastatic disease -- NEGATIVE check AM cortisol -- not low PT/OT consultations pending -- recommend SNF Ortho consulted for LEFT acute nondisplaced fibular fracture -- conservative management. Laced up ankle brace if needed for pain --> had denied pain to me today, also worked with therapy without increased pain with weight bearing activity Pain control -- tylenol, voltaren gel Checked TSH -- TSH low. Ft4 elevated. Decreased Synthroid to 50mcg daily. Could have been having arrhythmia prior to fall. Patient poor historian and now with UTI, denied palpitations. SR on admission EKG Will also check urine studies for low sodium for completeness Urinary Tract Infection * UA repeated (negative on admit) * --> some concern for contamination however was foul smelling and 4+ bacteria per RN --> URINE CX WITH GRAM NEGATIVE BACILLI. * --> Started Rocephin 1gm IV daily for UTI --> monitor cx * low temp, bcx also checked given pt reported frequent UTIs (prior to abx administered) CHF * acute on chronic diastolic heart failure * (Most recent ECHO --> 06/09/2020 --> LV size/function normal. Moderate concentric LVH. Grade II diastolic dysfunction. LA mildly dilated. Mod-Severe mitral annuular calcification. RVSP elevated at 30-40mmhg.) * BNP elevated 349. * On lasix 40mg BID. CXR cardiomegaly without pulm congestion. * Did not receive any lasix on admission, not ordered. * Lasix 20mg IV x 1 07/23, potassium 20meq BID scheduled given already hypokalemia with L 2.9 (given 40meq K AM 07/23, additional 40meq afternoon) * --> Na 133 today, additional lasix 20mg IV administered this morning. K 3.7 and will continue 20meq PO BID * (pt on lasix 40mg BID at home and on K 10meq BID -- given weakness could have had low K for some time/need increased supplementation). * Improvement in appetite (stated poor appetite yesterday TIPPLE GREASER), also tx of UTI * BNP improved to 141 but still elevated * Consider additional dose lasix IV for tomorrow but will continue 40mg BID for now * Check ECHO-> LV systolic function normal. EF 55-60%. LA mildly dilated. MODE RATE MR. RVSP elevated 30-40mmhg * Monitor daily weights/I&Os Hypokalemia: * K on admit 3.2, no replacement ordered. Had also admitted to poor po intake * Potassium 40meq x1 AM 07/23 given K 2.9, additional 40meq in afternoon * on 10meq BID TIPPLE GREASER--> increased to 20meq BID as above * Mag checked and wnl * Cortisol level in AM - not low * K also wnl today -- monitor but could need 20meq BID at d/c instead of 10meq previously taking * Suspect she could also have been having some level of hypokalemia for some time/needing additional supplementation given lasix 40mg BID for her heart failure. * Do not seen any previous echos in system despite patient with new onset afib/fall admitted Jul 2020 --> obtained as above Paroxysmal atrial fibrillation: * Rate controlled. * no longer on amiodarone, did not have f/u after hospital stay last admission --> will arrange at d/c for continued follow up * Continue Eliquis * Regular on exam but if concerns for arrhythmia would transfer to telemetry * Of note, aspirin 81mg was discontinued at that time to prevent any bleeding although no hx of GIB --> consider resuming if no contraindication * CT on admit negative for CVA, MRI brain negative for mass given hx breast ca/weakness/confusion/falls Hypothyroidism: * on Synthroid 75mcg daily TIPPLE GREASER-- > will order as not ordered on admission and not on medication list * --> will also check TSH given constipation issues/elevation during last admission but no adjustment (but was normal 1 month following) * also of note, was admitted with rhabdo at that time * TSH low -- decreased Synthroid to 50mcg AM. Repeat TFT outpatient Asthma: * Per recent PCP note: "daily Advair and prn albuterol HFA or duonebs as needed. Occasional cough/wheezing depending on allergens. Is short of breath with activity, but thinks this is due to deconditioning and her asthma. Feels her dyspnea is getting worse. Weight is stable. Denies chest pain, palpitations. Continue to take daily zyrtec and singulair as well." * --> stable on room air, no wheezing noted * Will resume advair daily HX: breast cancer: * s/p left mastectomy. Patient on tamoxifen, continued daily * falls concerning for malignancy, check MRI -- negative for evid of mass * F/u for further imaging L breast in area of scar tissue --> may need done inpatient if above unrevealing (tx UTI as above) B12 deficiency anemia: also with RLS -- mirapex 0.75mg HS. ?low ferritin Hgb 10.1, normocytic with MCV 93.2 however given continued falls and SOB with exertion, checking iron studies/B12/folate. also checking ECHO as above per med rec from PCP, patient to be on ferrous sulfate 27mg daily, B completx, also listssodium chloride tablets 1gm daily? --> will need clarification on medications at home and wouldhighly suggest discontinuation as patient with elevated BNP as above unless urine studies show low solute Plan: Tx UTI, ceftriaxone, monitor cultures PT/OT with recs for rehab -- alerted CM as daughter ok w rehab if needed (2) Hypokalemia: (3) Paroxysmal atrial fibrillation: (4) Hypothyroidism: (5) Asthma: (6) HX: breast cancer: (7) B12 deficiency anemia: Admission and Anticipated Discharge Date Admission Date: July 22, 2021 Supervising Physician Co-Signing Physician Notes Attending Attestation - Chart reviewed, care plan d/w CHAD Martinez. I agree w/ the wayne components of her documentation. Rodrick Turner MD Subjective patient eval this morning. sitting up in chair pain controlled with ordered medications --> pain to R ankle/mcadams, L ankle. Stated she remembers falling, multiple times. Not tripped on anything but felt like legs giving out on her. No loss of consciousness. no palpitations/shortness of breath (except with exertion), no chest pain. endorses leg swelling recently. daughter helps her with medications at home leg weakness but denied frequency/urgency/burning or hematuria, however per nursing, urine very foul smelling and will attempt to collect urine/treat if needed also discussed electrolyte abn -- she endorses she has improved appetite today but had not been eating very well at home. Review of Systems Review of Systems: All systems reviewed & are unremarkable except as noted in HPI & below Physical Exam Constitutional: WD/WN, vitals as above Eyes: PERRL, conjunctivae normal, anicteric sclerae ENMT: +JVD Respiratory: CTAB, no wheezes/crackles, on room air, not tachypneic Cardiovascular: regular rate, rhythm (occ PAC, rate 92bpm), +murmur, no LE edema, weak pedal pulses Chest (Breasts): Additional Comments: s/p L mastectomy Gastrointestinal (Abdomen): normal bowel sounds, soft, nontender, no hepatosplenomegaly Musculoskeletal: mild tenderness to left ankle (decreased today), R calf (none reported) chronic venous stasis changes noted Skin: cool, dry, scattered ecchymosis, venous stasis changes Neurologic: moves all 4 extremities Psychiatric: alert, oriented to person, but not time/location or events states she remembers falling and that "legs gave out on her" but then started talking about the [place] Genitourinary: no castro Results & Data Results & Data ([facility]) Vital Signs (Past 12 Hours) Vital Signs Temp Pulse Resp BP Pulse Ox 07/24/21 07:53 36.4 C L 94 H 20 127/74 96 07/23/21 22:24 36.6 C 70 16 131/69 94 Laboratory Results 07/24/21 07/24/21 07/24/21 Range/Units 10:55 10:55 10:13 WBC (4.8-10.8) K/uL RBC (4.2-5.4) M/uL Hgb (12.0-16.0) g/dL Hct (37-47) % MCV (80-100) fL MCH (25-34) pg MCHC (32-36) g/dL RDW Std Deviation (36.4-46.3) fL RDW Coeff of Leandro (11.5-14.5) % Plt Count (130-400) K/uL MPV (7.4-10.4) fL Immature Gran % (Auto) % Neut % (Auto) % Lymph % (Auto) % Stone % (Auto) % Eos % (Auto) % Baso % (Auto) % Neut # (Auto) (1.4-6.5) K/uL Lymph # (Auto) (1.2-3.4) K/uL Stone # (Auto) (0.11-0.59) K/uL Eos # (Auto) (0-0.5) K/uL Baso # (Auto) (0-0.2) K/uL Immature Gran # (Auto) (0.00-0.02) K/uL Sodium (136-145) mmol/L Potassium (3.5-5.1) mmol/L Chloride (98-107) mmol/L Carbon Dioxide (21-32) mmol/L Anion Gap (3-11) BUN (6-23) mg/dl Creatinine (0.6-1.2) mg/dl Est Cr Clr Drug Dosing ml/min Est GFR ( Amer) ml/min Est GFR (Non-Af Amer) ml/min BUN/Creatinine Ratio (10-20) Glucose (70-99(Fasting)) mg/dl Osmolality 281 (280-300) mOsm/kg Calcium (8.5-10.1) mg/dl Magnesium (1.7-2.4) mg/dl B-Natriuretic Peptide (0-100) pg/ml Free T4 (0.61-1.60) ng/dl Cortisol AM Sample (6.2-22.6) mcg/dl Urine Color Urine Appearance (Clear) Urine pH (4.5-7.5) Ur Specific [place] (1.000-1.030) Urine Protein (Negative) Urine Glucose (UA) (Negative) Urine Ketones (Negative) Urine Blood (Negative) Urine Nitrite (Negative) Urine Bilirubin (Negative) Urine Urobilinogen (Negative) Ur Leukocyte Esterase (Negative) Urine WBC (Auto) (0-5) /hpf Urine RBC (Auto) (0-4) /hpf U Hyaline Cast (Auto) (0-5) /lpf U Epithel Cells (Auto) (0-5) /lpf Urine Bacteria (Auto) (Negative) Urine Osmolality 160 L (500-800) mOsm/kg Ur Random Sodium 52 mmol/L 07/24/21 07/24/21 07/24/21 Range/Units 10:13 07:02 07:02 WBC 6.15 (4.8-10.8) K/uL RBC 3.75 L (4.2-5.4) M/uL Hgb 11.2 L (12.0-16.0) g/dL Hct 34.4 L (37-47) % MCV 91.7 (80-100) fL MCH 29.9 (25-34) pg MCHC 32.6 (32-36) g/dL RDW Std Deviation 43.4 (36.4-46.3) fL RDW Coeff of Leandro 12.9 (11.5-14.5) % Plt Count 290 (130-400) K/uL MPV 8.8 (7.4-10.4) fL Immature Gran % (Auto) 0.8 % Neut % (Auto) 60.9 % Lymph % (Auto) 21.1 % Stone % (Auto) 10.1 % Eos % (Auto) 6.8 % Baso % (Auto) 0.3 % Neut # (Auto) 3.74 (1.4-6.5) K/uL Lymph # (Auto) 1.30 (1.2-3.4) K/uL Stone # (Auto) 0.62 H (0.11-0.59) K/uL Eos # (Auto) 0.42 (0-0.5) K/uL Baso # (Auto) 0.02 (0-0.2) K/uL Immature Gran # (Auto) 0.05 H (0.00-0.02) K/uL Sodium 133 L (136-145) mmol/L Potassium 3.7 (3.5-5.1) mmol/L Chloride 97 L (98-107) mmol/L Carbon Dioxide 28 (21-32) mmol/L Anion Gap 8 (3-11) BUN 13 (6-23) mg/dl Creatinine 0.81 (0.6-1.2) mg/dl Est Cr Clr Drug Dosing 38.0 ml/min Est GFR ( Amer) 75.2 ml/min Est GFR (Non-Af Amer) 64.8 ml/min BUN/Creatinine Ratio 16.0 (10-20) Glucose 136 H (70-99(Fasting)) mg/dl Osmolality (280-300) mOsm/kg Calcium 8.5 (8.5-10.1) mg/dl Magnesium 1.8 (1.7-2.4) mg/dl B-Natriuretic Peptide 141 H (0-100) pg/ml Free T4 (0.61-1.60) ng/dl Cortisol AM Sample (6.2-22.6) mcg/dl Urine Color Urine Appearance (Clear) Urine pH (4.5-7.5) Ur Specific [place] (1.000-1.030) Urine Protein (Negative) Urine Glucose (UA) (Negative) Urine Ketones (Negative) Urine Blood (Negative) Urine Nitrite (Negative) Urine Bilirubin (Negative) Urine Urobilinogen (Negative) Ur Leukocyte Esterase (Negative) Urine WBC (Auto) (0-5) /hpf Urine RBC (Auto) (0-4) /hpf U Hyaline Cast (Auto) (0-5) /lpf U Epithel Cells (Auto) (0-5) /lpf Urine Bacteria (Auto) (Negative) Urine Osmolality (500-800) mOsm/kg Ur Random Sodium mmol/L 07/24/21 07/23/21 07/23/21 Range/Units 07:02 20:56 19:37 WBC (4.8-10.8) K/uL RBC (4.2-5.4) M/uL Hgb (12.0-16.0) g/dL Hct (37-47) % MCV (80-100) fL MCH (25-34) pg MCHC (32-36) g/dL RDW Std Deviation (36.4-46.3) fL RDW Coeff of Leandro (11.5-14.5) % Plt Count (130-400) K/uL MPV (7.4-10.4) fL Immature Gran % (Auto) % Neut % (Auto) % Lymph % (Auto) % Stone % (Auto) % Eos % (Auto) % Baso % (Auto) % Neut # (Auto) (1.4-6.5) K/uL Lymph # (Auto) (1.2-3.4) K/uL Stone # (Auto) (0.11-0.59) K/uL Eos # (Auto) (0-0.5) K/uL Baso # (Auto) (0-0.2) K/uL Immature Gran # (Auto) (0.00-0.02) K/uL Sodium 133 L (136-145) mmol/L Potassium 3.7 D (3.5-5.1) mmol/L Chloride 95 L (98-107) mmol/L Carbon Dioxide 35 H (21-32) mmol/L Anion Gap 3 (3-11) BUN 16 (6-23) mg/dl Creatinine 0.93 (0.6-1.2) mg/dl Est Cr Clr Drug Dosing 33.1 ml/min Est GFR ( Amer) 63.6 ml/min Est GFR (Non-Af Amer) 54.9 ml/min BUN/Creatinine Ratio 17.2 (10-20) Glucose 138 H (70-99(Fasting)) mg/dl Osmolality (280-300) mOsm/kg Calcium 8.8 (8.5-10.1) mg/dl Magnesium (1.7-2.4) mg/dl B-Natriuretic Peptide (0-100) pg/ml Free T4 (0.61-1.60) ng/dl Cortisol AM Sample 13.36 (6.2-22.6) mcg/dl Urine Color Yellow Urine Appearance Clear (Clear) Urine pH 7.5 (4.5-7.5) Ur Specific [place] 1.009 (1.000-1.030) Urine Protein Negative (Negative) Urine Glucose (UA) Negative (Negative) Urine Ketones Negative (Negative) Urine Blood Negative (Negative) Urine Nitrite Negative (Negative) Urine Bilirubin Negative (Negative) Urine Urobilinogen Negative (Negative) Ur Leukocyte Esterase Trace H (Negative) Urine WBC (Auto) 5-10 H (0-5) /hpf Urine RBC (Auto) 0-4 (0-4) /hpf U Hyaline Cast (Auto) 0 (0-5) /lpf U Epithel Cells (Auto) 20-30 H (0-5) /lpf Urine Bacteria (Auto) 4+ H (Negative) Urine Osmolality (500-800) mOsm/kg Ur Random Sodium mmol/L 07/23/21 Range/Units 09:11 WBC (4.8-10.8) K/uL RBC (4.2-5.4) M/uL Hgb (12.0-16.0) g/dL Hct (37-47) % MCV (80-100) fL MCH (25-34) pg MCHC (32-36) g/dL RDW Std Deviation (36.4-46.3) fL RDW Coeff of Leandro (11.5-14.5) % Plt Count (130-400) K/uL MPV (7.4-10.4) fL Immature Gran % (Auto) % Neut % (Auto) % Lymph % (Auto) % Stone % (Auto) % Eos % (Auto) % Baso % (Auto) % Neut # (Auto) (1.4-6.5) K/uL Lymph # (Auto) (1.2-3.4) K/uL Stone # (Auto) (0.11-0.59) K/uL Eos # (Auto) (0-0.5) K/uL Baso # (Auto) (0-0.2) K/uL Immature Gran # (Auto) (0.00-0.02) K/uL Sodium (136-145) mmol/L Potassium (3.5-5.1) mmol/L Chloride (98-107) mmol/L Carbon Dioxide (21-32) mmol/L Anion Gap (3-11) BUN (6-23) mg/dl Creatinine (0.6-1.2) mg/dl Est Cr Clr Drug Dosing ml/min Est GFR ( Amer) ml/min Est GFR (Non-Af Amer) ml/min BUN/Creatinine Ratio (10-20) Glucose (70-99(Fasting)) mg/dl Osmolality (280-300) mOsm/kg Calcium (8.5-10.1) mg/dl Magnesium (1.7-2.4) mg/dl B-Natriuretic Peptide (0-100) pg/ml Free T4 2.16 H (0.61-1.60) ng/dl Cortisol AM Sample (6.2-22.6) mcg/dl Urine Color Urine Appearance (Clear) Urine pH (4.5-7.5) Ur Specific [place] (1.000-1.030) Urine Protein (Negative) Urine Glucose (UA) (Negative) Urine Ketones (Negative) Urine Blood (Negative) Urine Nitrite (Negative) Urine Bilirubin (Negative) Urine Urobilinogen (Negative) Ur Leukocyte Esterase (Negative) Urine WBC (Auto) (0-5) /hpf Urine RBC (Auto) (0-4) /hpf U Hyaline Cast (Auto) (0-5) /lpf U Epithel Cells (Auto) (0-5) /lpf Urine Bacteria (Auto) (Negative) Urine Osmolality (500-800) mOsm/kg Ur Random Sodium mmol/L Diagnostic Findings Brain MRI 07/23/21 15:32 MR brain wo/w con CLINICAL HISTORY: weakness, fall, hx breast ca TECHNIQUE: Multiplanar and multisequence MR images of the brain were obtained prior to and following administration of gadolinium contrast. Comparison: None available at the time of this dictation. FINDINGS: No abnormal restricted diffusion is identified. Foci of T2 and FLAIR hyperintensity are noted in the paraventricular areas consistent with chronic small vessel ischemic disease. Ex vacuo ventriculomegaly and sulcal enlargement is noted compatible with diffuse encephalomalacia. There is no evidence of acute intraparenchymal hemorrhage. No extra axial fluid collections are seen. There are no masses, mass effect, or midline shift. No abnormal enhancement is seen. The corpus callosum, pituitary gland, and cerebellar tonsils appear grossly unremarkable. Flow voids of the major intracranial arterial vessels are identified. The imaged portions of the paranasal sinuses, mastoid air cells, and orbits are unremarkable. IMPRESSION: No evidence of acute infarct. No enhancing lesions or edema to suggest metastatic disease in this patient with history of breast cancer. ACT 112: Negative or not required by law. Electronically signed by: Rohan Martinez M.D. 07/23/2021 6:57 PM PG Care Time/CCT Total # of Minutes Spent Total Time Spent with Patient: Total time spent is greater than 50% in coordination of care (as documented) at patient's floor/unit and/or counseling patient: Coding Level of Care Code 61299 Subseq Hosp Care Lvl 3 Diagnoses Fall W19.XXXA Encounter type: initial encounter Hypokalemia E87.6 Paroxysmal atrial fibrillation I48.0 Hypothyroidism E03.9 Asthma J45.909 HX: breast cancer Z85.3 B12 deficiency anemia D51.9 (1) Fall Encounter type: initial encounter Qualified Code(s): W19.XXXA - Unspecified fall, initial encounter
[2021-07-24] MEDS ORDERED: FUROSEMIDE INJ 20 MG/2 ML VIAL IV ONE (09:25)
[2021-07-24] MEDS ORDERED: FUROSEMIDE INJ 20 MG/2 ML VIAL IV SCH (09:26)
[2021-07-24] MEDS ORDERED: POTASSIUM CHLORIDE PWD 20 MEQ PACK PO ONE (09:26)
[2021-07-24] MEDS: cefTRIAXone SODIUM 1,000 MG in DEXTROSE 5% 50 ML IV SCH (10:22)
[2021-07-24] MEDS: DICLOFENAC SOD 1% GEL 100 GM TUBE EXT SCH ×4 (11:05→20:37)
[2021-07-24] MEDS ORDERED: MAGNESIUM SULFATE / D5W 1 GM/100 ML BAG IV ONE (16:51)
[2021-07-24] MEDS: FLUTICASONE/VILANTEROL 100/25MCG 14 PUFFS/INHALER INH SCH (20:37)
[2021-07-24] MEDS ORDERED: FLUTICASONE/SALMETEROL 100/50 (ADVAIR) 14 PUFF/1 INHALER INH SCH (21:00)
[2021-07-25] MEDS: LEVOTHYROXINE SODIUM 50 MCG TABLET PO SCH (06:19)
[2021-07-25 06:37] LABS: Basophils # (auto) 0.03 K/uL (0-0.2); Basophils % (auto) 0.5 %; Eosinophils # (auto) 0.59 K/uL (0-0.5); Eosinophils % (auto) 9.3 %; Hematocrit (blood only) 32.8 % (37-47); Hemoglobin 10.7 g/dL (12.0-16.0); Immature Granulocytes # (auto) 0.07 K/uL (0.00-0.02); Immature Granulocytes % (auto) 1.1 %; Lymphocytes % (auto) 17.3 %; Mean Corpuscular Hemoglobin 29.9 pg (25-34); Mean Corpuscular Hgb Conc 32.6 g/dL (32-36); Mean Corpuscular Volume 91.6 fL (80-100); Monocytes # (auto) 0.81 K/uL (0.11-0.59); Monocytes % (auto) 12.7 %; Neutrophils # (auto) 3.77 K/uL (1.4-6.5); Neutrophils % (auto) 59.1 %; Platelet Count 244 K/uL (130-400); RDW Coefficient of Variation 13.2 % (11.5-14.5); RDW Standard Deviation 43.9 fL (36.4-46.3); Red Blood Count 3.58 M/uL (4.2-5.4); White Blood Count 6.37 K/uL (4.8-10.8)
[2021-07-25 07:06] LABS: BUN Creatinine Ratio 16.8 (10-20); Calcium 8.3 mg/dl (8.5-10.1); Creatinine Clr Calc Pharmacy 28.7 ml/min; Est GFR (African American) 53.7 ml/min; Est GFR (Non-African American) 46.3 ml/min; Magnesium 2.3 mg/dl (1.7-2.4); Potassium 4.8 mmol/L (3.5-5.1)
--- NOTE | 2021-07-25 08:14 | Hospitalist Progress Note ---
Date of Service July 25, 2021 Assessment & Plan (1) Fall: Plan: Patient had a fall. --> Prior hospitalization Jul 2020 for fall/rhabdo/new on- set afib and placed on eliquis/amiodarone at that time and ASA was d/c to prevent GIB in 86yo patient --> EKG on admission NSR LBBB (rhythm replaced afib compared to EKG jul 2020) Trop 0.03 Appears to have been a mechanical fall per report on admission VBG pH 7.43, pCO2 [address] head negative for CVA MRI of brain negative of evidence of metastatic disease -- NEGATIVE check AM cortisol -- not low PT/OT consultations pending -- recommend SNF Ortho consulted for LEFT acute nondisplaced fibular fracture -- conservative management. Laced up ankle brace if needed for pain --> had denied pain to me today, also worked with therapy without increased pain with weight bearing activity Pain control -- tylenol, voltaren gel Checked TSH -- TSH low. Ft4 elevated. Decreased Synthroid to 50mcg daily. Could have been having arrhythmia prior to fall. Patient poor historian and now with UTI, denied palpitations. SR on admission EKG Will also check urine studies for low sodium for completeness Urinary Tract Infection * UA repeated (negative on admit) * --> some concern for contamination however was foul smelling and 4+ bacteria per RN --> URINE CX WITH GRAM NEGATIVE BACILLI--> ECOLI * --> StartedED Rocephin 1gm IV daily 07/24 (ON DAY 2) --> de-escalate to PO tomorrow. BCx pending CHF * acute on chronic diastolic heart failure * (Most recent ECHO --> 06/09/2020 --> LV size/function normal. Moderate concentric LVH. Grade II diastolic dysfunction. LA mildly dilated. Mod-Severe mitral annuular calcification. RVSP elevated at 30-40mmhg.) * BNP elevated 349. * On lasix 40mg BID. CXR cardiomegaly without pulm congestion. * Did not receive any lasix on admission, not ordered. * Lasix 20mg IV x 1 07/23, potassium 20meq BID scheduled given already hypokalemia with L 2.9 (given 40meq K AM 07/23, additional 40meq afternoon) * --> Na 133 07/23, additional lasix 20mg IV administered K 3.7 continued on potassium 20meq BID (hold this evening dose) * (pt on lasix 40mg BID at home and on K 10meq BID -- given weakness could have had low K for some time/need increased supplementation). * Improvement in appetite (stated poor appetite yesterday [employer]ATION [employer]AM[employer]ER), also tx of UTI * BNP improved to 141 07/24 but still elevated * Consider additional dose lasix IV for tomorrow but will continue 40mg BID for now --> repeat BNP wnl and weight down * Check ECHO-> LV systolic function normal. EF 55-60%. LA mildly dilated. MODERATE MR. RVSP elevated 30-40mmhg * Monitor daily weights/I&Os Hypokalemia: * K on admit 3.2, no replacement ordered. Had also admitted to poor po intake * Potassium 40meq x1 AM 07/23 given K 2.9, additional 40meq in afternoon * on 10meq BID [employer]ER--> increased to 20meq BID as above * Mag checked and wnl * Cortisol level in AM - not low * K also wnl today -- monitor but could need 20meq BID at d/c instead of 10meq previously taking * Suspect she could also have been having some level of hypokalemia for some time/needing additional supplementation given lasix 40mg BID for her heart failure. * Do not seen any previous echos in system despite patient with new onset afib/fall admitted Jul 2020 --> obtained as above Paroxysmal atrial fibrillation: * Rate controlled. * no longer on amiodarone, did not have f/u after hospital stay last admission --> will arrange at d/c for continued follow up * Continue Eliquis * Regular on exam but if concerns for arrhythmia would transfer to telemetry * Of note, aspirin 81mg was discontinued at that time to prevent any bleeding although no hx of GIB --> consider resuming if no contraindication * CT on admit negative for CVA, MRI brain negative for mass given hx breast ca/weakness/confusion/falls Hypothyroidism: * on Synthroid 75mcg daily [employer]ER-- > will order as not ordered on admission and not on medication list * --> will also check TSH given constipation issues/elevation during last admission but no adjustment (but was normal 1 month following) * also of note, was admitted with rhabdo at that time * TSH low -- decreased Synthroid to 50mcg AM. Repeat TFT outpatient Asthma: * Per recent PCP note: "daily Advair and prn albuterol HFA or duonebs as needed. Occasional cough/wheezing depending on allergens. Is short of breath with activity, but thinks this is due to deconditioning and her asthma. Feels her dyspnea is getting worse. Weight is stable. Denies chest pain, palpitations. Continue to take daily zyrtec and singulair as well." * --> stable on room air, no wheezing noted * Will resume advair daily * 97% on RA HX: breast cancer: * s/p left mastectomy. Patient on tamoxifen, continued daily * falls concerning for malignancy, check MRI -- negative for evid of mass * F/u for further imaging L breast in area of scar tissue --> may need done inpatient if above unrevealing (tx UTI as above) B12 deficiency anemia: also with RLS -- mirapex 0.75mg HS. ?low ferritin Hgb 10.1, normocytic with MCV 93.2 however given continued falls and SOB with exertion, checking iron studies/B12/folate. also checking ECHO as above per med rec from PCP, patient to be on ferrous sulfate 27mg daily, B completx, also listssodium chloride tablets 1gm daily? --> will need clarification on medications at home and wouldhighly suggest discontinuation as patient with elevated BNP as above unless urine studies show low solute --> give 1gm na cl /30 and monitor response. Urine sodium 52 but urine osm 160. monitor Plan: Tx UTI, ceftriaxone, monitor cultures PT/OT with recs for rehab -- alerted CM as daughter ok w rehab if needed (2) Hypokalemia: (3) Paroxysmal atrial fibrillation: (4) Hypothyroidism: (5) Asthma: (6) HX: breast cancer: (7) B12 deficiency anemia: Admission and Anticipated Discharge Date Admission Date: July 22, 2021 Subjective patient eval this morning per aides, has been much more cooperative comfortable resting at this time denies fever, chills, chest pain, shortness of breath, abd pain. Improved appetite. Needing aide to assist as she feels like she needs to urinate. Urine cx with e coli, pansensitive but will continue rocephin for now until bx neg 48 hours prior to de-escalation to oral given recurrent UTIs reported. Breathing stable. To rehab likely tomorrow, [facility]. No pain with ambulation to the ankle; Review of Systems Review of Systems: All systems reviewed & are unremarkable except as noted in HPI & below Physical Exam Constitutional: WD/WN, vitals as above Eyes: PERRL, conjunctivae normal, anicteric sclerae ENMT: external ear and nose normal, oropharynx normal Neck: no JVD Respiratory: normal respiratory effort, lungs clear to auscultation Cardiovascular: regular rate, rhythm (occ PAC, rate 92bpm), +murmur, no LE edema, weak pedal pulses Chest (Breasts): Additional Comments: s/p L mastectomy Gastrointestinal (Abdomen): normal bowel sounds, soft, nontender, no hepatosplenomegaly Musculoskeletal: mild swelling to left ankle (decreased today), no pain/tenderness, R calf (none reported) chronic venous stasis changes noted Skin: cool, dry, scattered ecchymosis, venous stasis changes Neurologic: moves all extremities, no slurred speech, intermittent confusion, no focal deficit Psychiatric: Orientation: alert alert, oriented to person, but not time/location or events Genitourinary: no castro Results & Data Results & Data ([facility]) Vital Signs (Past 12 Hours) Vital Signs Temp Pulse Resp BP Pulse Ox 07/24/21 22:00 36.6 C 94 H 17 121/78 97 Laboratory Results 07/25/21 07/25/21 07/25/21 Range/Units 06:30 06:17 06:17 WBC 6.37 (4.8-10.8) K/uL RBC 3.58 L (4.2-5.4) M/uL Hgb 10.7 L (12.0-16.0) g/dL Hct 32.8 L (37-47) % MCV 91.6 (80-100) fL MCH 29.9 (25-34) pg MCHC 32.6 (32-36) g/dL RDW Std Deviation 43.9 (36.4-46.3) fL RDW Coeff of Leandro 13.2 (11.5-14.5) % Plt Count 244 (130-400) K/uL MPV 9.0 (7.4-10.4) fL Immature Gran % (Auto) 1.1 % Neut % (Auto) 59.1 % Lymph % (Auto) 17.3 % [place] % (Auto) 12.7 % Eos % (Auto) 9.3 % Baso % (Auto) 0.5 % Neut # (Auto) 3.77 (1.4-6.5) K/uL Lymph # (Auto) 1.10 L (1.2-3.4) K/uL [place] # (Auto) 0.81 H (0.11-0.59) K/uL Eos # (Auto) 0.59 H (0-0.5) K/uL Baso # (Auto) 0.03 (0-0.2) K/uL Immature Gran # (Auto) 0.07 H (0.00-0.02) K/uL Sodium 131 L (136-145) mmol/L Potassium 4.8 D (3.5-5.1) mmol/L Chloride 96 L (98-107) mmol/L Carbon Dioxide 30 (21-32) mmol/L Anion Gap 5 (3-11) BUN 18 (6-23) mg/dl Creatinine 1.07 (0.6-1.2) mg/dl Est Cr Clr Drug Dosing 28.7 ml/min Est GFR ( Amer) 53.7 ml/min Est GFR (Non-Af Amer) 46.3 ml/min BUN/Creatinine Ratio 16.8 (10-20) Glucose 96 (70-99(Fasting)) mg/dl Osmolality (280-300) mOsm/kg Calcium 8.3 L (8.5-10.1) mg/dl Magnesium 2.3 (1.7-2.4) mg/dl B-Natriuretic Peptide (0-100) pg/ml Cortisol AM Sample (6.2-22.6) mcg/dl Urine Osmolality (500-800) mOsm/kg Ur Random Creatinine 24.5 mg/dl Ur Random Sodium mmol/L 07/24/21 07/24/21 07/24/21 Range/Units 10:55 10:55 10:13 WBC (4.8-10.8) K/uL RBC (4.2-5.4) M/uL Hgb (12.0-16.0) g/dL Hct (37-47) % MCV (80-100) fL MCH (25-34) pg MCHC (32-36) g/dL RDW Std Deviation (36.4-46.3) fL RDW Coeff of Leandro (11.5-14.5) % Plt Count (130-400) K/uL MPV (7.4-10.4) fL Immature Gran % (Auto) % Neut % (Auto) % Lymph % (Auto) % [place] % (Auto) % Eos % (Auto) % Baso % (Auto) % Neut # (Auto) (1.4-6.5) K/uL Lymph # (Auto) (1.2-3.4) K/uL [place] # (Auto) (0.11-0.59) K/uL Eos # (Auto) (0-0.5) K/uL Baso # (Auto) (0-0.2) K/uL Immature Gran # (Auto) (0.00-0.02) K/uL Sodium (136-145) mmol/L Potassium (3.5-5.1) mmol/L Chloride (98-107) mmol/L Carbon Dioxide (21-32) mmol/L Anion Gap (3-11) BUN (6-23) mg/dl Creatinine (0.6-1.2) mg/dl Est Cr Clr Drug Dosing ml/min Est GFR ( Amer) ml/min Est GFR (Non-Af Amer) ml/min BUN/Creatinine Ratio (10-20) Glucose (70-99(Fasting)) mg/dl Osmolality 281 (280-300) mOsm/kg Calcium (8.5-10.1) mg/dl Magnesium (1.7-2.4) mg/dl B-Natriuretic Peptide (0-100) pg/ml Cortisol AM Sample (6.2-22.6) mcg/dl Urine Osmolality 160 L (500-800) mOsm/kg Ur Random Creatinine mg/dl Ur Random Sodium 52 mmol/L 07/24/21 07/24/21 Range/Units 10:13 07:02 WBC (4.8-10.8) K/uL RBC (4.2-5.4) M/uL Hgb (12.0-16.0) g/dL Hct (37-47) % MCV (80-100) fL MCH (25-34) pg MCHC (32-36) g/dL RDW Std Deviation (36.4-46.3) fL RDW Coeff of Leandro (11.5-14.5) % Plt Count (130-400) K/uL MPV (7.4-10.4) fL Immature Gran % (Auto) % Neut % (Auto) % Lymph % (Auto) % [place] % (Auto) % Eos % (Auto) % Baso % (Auto) % Neut # (Auto) (1.4-6.5) K/uL Lymph # (Auto) (1.2-3.4) K/uL [place] # (Auto) (0.11-0.59) K/uL Eos # (Auto) (0-0.5) K/uL Baso # (Auto) (0-0.2) K/uL Immature Gran # (Auto) (0.00-0.02) K/uL Sodium (136-145) mmol/L Potassium (3.5-5.1) mmol/L Chloride (98-107) mmol/L Carbon Dioxide (21-32) mmol/L Anion Gap (3-11) BUN (6-23) mg/dl Creatinine (0.6-1.2) mg/dl Est Cr Clr Drug Dosing ml/min Est GFR ( Amer) ml/min Est GFR (Non-Af Amer) ml/min BUN/Creatinine Ratio (10-20) Glucose (70-99(Fasting)) mg/dl Osmolality (280-300) mOsm/kg Calcium (8.5-10.1) mg/dl Magnesium (1.7-2.4) mg/dl B-Natriuretic Peptide 141 H (0-100) pg/ml Cortisol AM Sample 13.36 (6.2-22.6) mcg/dl Urine Osmolality (500-800) mOsm/kg Ur Random Creatinine mg/dl Ur Random Sodium mmol/L PG Care Time/CCT Total # of Minutes Spent Total Time Spent with Patient: Total time spent is greater than 50% in coordination of care (as documented) at patient's floor/unit and/or counseling patient: Coding Level of Care Code 97320 Subseq Hosp Care Lvl 2 Diagnoses Fall W19.XXXA Encounter type: initial encounter Hypokalemia E87.6 Paroxysmal atrial fibrillation I48.0 Hypothyroidism E03.9 Asthma J45.909 HX: breast cancer Z85.3 B12 deficiency anemia D51.9 (1) Fall Encounter type: initial encounter Qualified Code(s): W19.XXXA - Unspecified fall, initial encounter
[2021-07-25] MEDS: FUROSEMIDE 40 MG TAB PO SCH ×2 (09:37→16:32)
[2021-07-25] MEDS: PANTOprazole 40 MG TAB PO SCH (09:37)
[2021-07-25] MEDS: CETIRIZINE HCL 10 MG TABLET PO SCH (09:37)
[2021-07-25] MEDS: APIXABAN 5 MG TABLET PO SCH ×2 (09:37→20:06)
[2021-07-25] MEDS: VITAMIN B COMPLEX TAB PO SCH (09:37)
[2021-07-25] MEDS: cefTRIAXone SODIUM 1,000 MG in DEXTROSE 5% 50 ML IV SCH (09:37)
[2021-07-25] MEDS: TAMOXIFEN CITRATE 10 MG TABLET PO SCH (09:37)
[2021-07-25] MEDS: DICLOFENAC SOD 1% GEL 100 GM TUBE EXT SCH ×4 (09:38→20:07)
[2021-07-25] MEDS ORDERED: SODIUM CHLORIDE 1 GM TABLET PO ONE (14:45)
[2021-07-25] MEDS: FLUTICASONE/VILANTEROL 100/25MCG 14 PUFFS/INHALER INH SCH (20:08)
[2021-07-26] MEDS: LEVOTHYROXINE SODIUM 50 MCG TABLET PO SCH (05:48)
[2021-07-26] MEDS: cefTRIAXone SODIUM 1,000 MG in DEXTROSE 5% 50 ML IV SCH (08:26)
[2021-07-26] MEDS: CETIRIZINE HCL 10 MG TABLET PO SCH (08:27)
[2021-07-26] MEDS: APIXABAN 5 MG TABLET PO SCH (08:27)
[2021-07-26] MEDS: DICLOFENAC SOD 1% GEL 100 GM TUBE EXT SCH ×2 (08:27→12:23)
[2021-07-26] MEDS: FUROSEMIDE 40 MG TAB PO SCH (08:28)
[2021-07-26] MEDS: PANTOprazole 40 MG TAB PO SCH (08:28)
[2021-07-26] MEDS: TAMOXIFEN CITRATE 10 MG TABLET PO SCH (08:28)
[2021-07-26] MEDS: VITAMIN B COMPLEX TAB PO SCH (08:28)
--- NOTE | 2021-07-26 12:31 | Discharge Summary ---
Date of Service July 26, 2021 Admission HPI Per Admitting Provider 86 yo female is a poor historian. She arrives to the ER after sustaining a mechanical fall overnight onto her buttocks. History obtained by daughter phone: Milvia and chart review. Overnight patient fell, around 3AM. Patient does not recall event. The daughter reports that she heard a thud and ran towards the patient and she was on the ground sitting up. It does not appear that patient hit her head. Patient was confused and unable to ambulate well. Her daughter reports that over the past 24 hours prior to the fall, the patient she had become more and more confused. Daughter reports she has been taking her medications including lasix 40 mg PO BID. Daughter reports that she is normally oriented. Due to this change of mental status, patient was brought in. Principal Diagnosis Fall; Urinary Tract Infection; L Fibular Nondisplaced fracture Discharge Exam PHYSICAL EXAM General Appearance: WDWN in NAD who is A&O to self but not time and situation HEENT: Head is normocephalic/atraumatic; Hearing grossly intact; Neck: Supple; Trachea midline; Neg JVD Heart: RRR with murmur Lungs: CTA in all lung wells bilaterally; Respirations unlabored; Neg accessory muscle use Abdomen: Soft, non-tender, non-distended; Positive BS x 4 quadrants Extremities: Neg cyanosis or edema; no pain or tenderness to palpation Neurological: Speech clear; Gross motor/sensory function intact; Neg focal neurologic deficits Psychiatric: Appropriate mood/affect Skin: Normal Color; Warm/Dry Discharge Data Allergies Allergy/AdvReac Type Severity Reaction Status Date / Time No Known Drug Allergies Allergy Verified 07/22/21 11:34 Consultations 07/22/21 11:55 ED Decision to Admit Stat 07/22/21 23:03 Consult Orthopedic Surgery Routine Ordered Studies Cervical Spine CT 07/22/21 10:23 CT OF THE CERVICAL SPINE WITHOUT CONTRAST CLINICAL HISTORY: Fall. COMPARISON STUDY: No previous studies for comparison. TECHNIQUE: Helical axial images of the cervical spine were obtained without IV contrast. Sagittal and coronal reconstructions were viewed. Automated exposure control was utilized for the study. A dose lowering technique was utilized adhering to the principles of ALARA. FINDINGS: This exam is mildly compromised by motion artifact. No acute cervical spine fracture is identified. Craniocervical junction is intact. There is severe multilevel facet arthrosis. Moderate to severe multilevel disc space narrowing and osteophytosis is also present. Extensive degenerative changes at the C1-C2 articulation are present. There is no prevertebral edema. A 1.7 cm right parotid nodule is incidentally noted. Biapical opacities are partially imaged on this exam. These are nonspecific although favor scarring. IMPRESSION: 1. No acute cervical spine fracture or subluxation. Exam mildly compromised by motion artifact. 2. 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 ACT 112: Negative or not required by law. Electronically signed by: Srinivas Vines M.D. 07/22/2021 11:[address] 07/22/21 10:23 CT head/brain wo con CLINICAL HISTORY: head trauma Technique: Contiguous axial CT images of the head were acquired from the base of the skull to the vertex without intravenous contrast administration. Images were viewed in brain, subdural and bone windows. Automated dose lowering techniques and/or adjustment according to patient size were utilized for this exam. Comparison: None available at the time of this dictation. Findings: The exam is limited by patient motion. The ventricles, basal cisterns, and cerebral sulci are normal. There is no acute intracranial hemorrhage or evidence of acute territorial infarction. Neither mass effect, shift of the midline structures, nor abnormal extra-axial fluid collections are shown. Opacification of some ethmoid and left frontal air cells is noted. The orbits appear normal. There are no acute fractures of the calvaria or scalp swelling. Impression: Highly limited exam due to patient motion. However there is no evidence of intracranial hemorrhage or skull fracture given these limitations. Sinus disease is noted. ACT 112: Negative or not required by law. Electronically signed by: Rohan Martinez M.D. 07/22/2021 11:12 AM Ankle X-Ray 07/22/21 10:31 XR ankle LT min 3V routine CLINICAL HISTORY: Left ankle pain. COMPARISON: None FINDINGS: Alignment of the left ankle is anatomic. Lateral ankle soft tissue swelling is noted. Cortical thickening and step-off of the distal diaphysis and metadiaphysis of the left fibula favors a healed fracture. However, there is lucency within the fibular tip which may reflect an acute nondisplaced fracture. No acute fracture of the distal left tibia is present. Posterior and plantar calcaneal spurring is present. IMPRESSION: 1. Lateral ankle soft tissue swelling. Lucency within the fibular tip which favors an acute nondisplaced fracture. 2. Cortical thickening and step-off of the distal diaphysis and metadiaphysis of the left fibula which favors an old fracture. ACT 112: Negative or not required by law. Electronically signed by: Srinivas Vines M.D. 07/22/2021 10:59 AM Chest X-Ray 07/22/21 10:31 XR chest 1V portable CLINICAL HISTORY: Altered mental status. COMPARISON STUDY: Chest radiograph August 13, 2020. FINDINGS: There is no pneumothorax or pleural effusion. Mild cardiomegaly is unchanged. There is no evidence for pulmonary edema. Apparent upper lung interstitial thickening is likely chronic. No consolidation is identified. Left axillary surgical clips are noted. IMPRESSION: No acute cardiopulmonary findings. Cardiomegaly. ACT 112: Negative or not required by law. Electronically signed by: Srinivas Vines M.D. 07/22/2021 11:01 AM Pelvis X-Ray 07/22/21 10:31 XR pelvis 1-2V routine HISTORY: 86 years-old Female fall acute pelvic pain status post fall COMPARISON: CT abdomen pelvis 08/13/2020 TECHNIQUE: AP view of the pelvis FINDINGS: Demineralized appearance the bones. Moderate loss or arthritis of the hips. No definite acute fracture or dislocation. There is an ill-defined linear lucency within the left inferior pubic ramus. IMPRESSION: 1. No definite acute fracture or dislocation. 2. Ill-defined linear lucency of the left inferior pubic ramus is favored to be artifactual. A subtle acute nondisplaced fracture is considered less likely. ACT 112: Negative or not required by law. The above report was generated using voice recognition software. It may contain grammatical, syntax or spelling errors. Electronically signed by: Sotero Ortega M.D. 07/22/2021 11:13 AM Brain MRI 07/23/21 15:32 MR brain wo/w con CLINICAL HISTORY: weakness, fall, hx breast ca TECHNIQUE: Multiplanar and multisequence MR images of the brain were obtained prior to and following administration of gadolinium contrast. Comparison: None available at the time of this dictation. FINDINGS: No abnormal restricted diffusion is identified. Foci of T2 and FLAIR hyperintensity are noted in the paraventricular areas consistent with chronic small vessel ischemic disease. Ex vacuo ventriculomegaly and sulcal enlargement is noted compatible with diffuse encephalomalacia. There is no evidence of acute intraparenchymal hemorrhage. No extra axial fluid collections are seen. There are no masses, mass effect, or midline shift. No abnormal enhancement is seen. The corpus callosum, pituitary gland, and cerebellar tonsils appear grossly unremarkable. Flow voids of the major intracranial arterial vessels are identified. The imaged portions of the paranasal sinuses, mastoid air cells, and orbits are unremarkable. IMPRESSION: No evidence of acute infarct. No enhancing lesions or edema to suggest metastatic disease in this patient with history of breast cancer. ACT 112: Negative or not required by law. Electronically signed by: Rohan Martinez M.D. 07/23/2021 6:57 PM Hospital Course (1) Fall: Fall - Appears to be mechanical but not completely certain --> EKG on admission NSR LBBB (rhythm replaced afib compared to EKG jul 2020) Trop 0.03 - CT head negative for CVA; MRI of brain negative of evidence of metastatic disease -- NEGATIVE - Ortho consulted for LEFT acute nondisplaced fibular fracture -- conservative management. Laced up ankle brace if needed for pain --> had denied pain to me today, also worked with therapy without increased pain with weight bearing activity Pain control -- tylenol, voltaren gel - has not required narcotics Checked TSH -- TSH low. FT4 elevated. Decreased Synthroid to 50mcg daily Urinary Tract Infection * UA repeated (negative on admit) * --> some concern for contamination however was foul smelling and 4+ bacteria per RN --> URINE CX WITH GRAM NEGATIVE BACILLI--> ECOLI * --> Started Rocephin 1gm IV daily 07/24 and will complete course with Cefdinir BID CHF * acute on chronic diastolic heart failure * BNP elevated 349. * On lasix 40mg BID. CXR cardiomegaly without pulm congestion. * Checked ECHO-> LV systolic function normal. EF 55-60%. LA mildly dilated. MODERATE MR. RVSP elevated 30-40mmhg * Monitor daily weights/I&Os Hypokalemia: * Continue supplementation and monitor Paroxysmal atrial fibrillation: * Rate controlled. 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 Occasional cough/wheezing depending on allergens. Is short of breath with activity, but thinks this is due to deconditioning and her asthma. Feels her dyspnea is getting worse. Weight is stable. Denies chest pain, palpitations. Continue to take daily zyrtec and singulair as well." * --> stable on room air, no wheezing noted * Will resume advair HX: breast cancer: * s/p left mastectomy. Patient on tamoxifen, continued daily also with RLS -- mirapex 0.75mg HS but not certain if still on this can follow- up with PCP Rehab at [facility] prior to return home (2) Hypokalemia: (3) Paroxysmal atrial fibrillation: (4) Hypothyroidism: (5) Asthma: (6) HX: breast cancer: (7) B12 deficiency anemia: Total Time Total Time Spent Total Time Spent (In Minutes): Spent greater than 30 minutes preparing patient for discharge. This includes discussion with patient/family, assessment, intervention, medication reconciliation, and coordination of care. Discharge Plan Discharge Items Patient Disposition: Transfer Inpatient Rehab Fac Reason For Visit: CONFUSION/METABOLIC ALKALOSIS Discharge Diagnosis: Urinary Tract Infection; L Fibular Fracture Activity: Resume your previous activity Non-emergency contact: Primary Care Provider Call non-emergency contact if: you have any medication questions, your symptoms worsen and you have a fever Follow-up/Referrals: Diego Napier Jr, MD, FAC [Physician] - 08/19/21 11:00 am ([facility]) Annika Salgado CRNP [Primary Care Provider] - Diet: Regular Addtl Attending Provider Instructions: Fall: - Previous hospitalization last year for fall/rhabdo/new onset A Fib - does not take Amiodarone anymore - Possibly mechanical fall but not completely certain - Head CT negative for CVA: MRI negative for metastatic disease - L Ankle XR - 1. Lateral ankle soft tissue swelling. Lucency within the fibular tip which favors an acute nondisplaced fracture.; Cortical thickening and step- off of the distal diaphysis and metadiaphysis of the left fibula which favors an old fracture. - Orthopedics consulted - conservative management - weight bear as tolerated and can use a laced up ankle brace if needed for pain -- She does not seem to report any pain and no narcotics have been needed. Staff reports assisting her to the bathroom and no signs of pain or grimacing. - Can continue Tylenol and Voltaren gel UTI: E-Coli - Utilized Rocephin in hospital and will convert to Cefdinir 300 mg twice a day - She had a dose of Rocephin today so oral antibiotics can start tomorrow on 07/27 Acute on Chronic Diastolic CHF: IMPROVED - On Lasix 40 mg BID and will continue potassium supplement - Would need to monitor for need to reduce dose to prevent dehydration but seems to have been on this dosage for awhile Paroxysmal Atrial Fibrillation: Rate Controlled - Consider arranging cardiology follow-up - saw [facility] Cardiology when hospitalized last year for new onset - No longer on Amiodarone but continues on Eliquis - Due to patient age and her weight trends in the hospital has been < 60 kg - her Eliquis should be reduced to 2.5 mg BID Hypothyroidism: - TSH low with FT4 elevated -- Decreased Synthroid to 50 mcg daily - Recommend recheck TSH/T4 in 6 weeks Asthma: * Per recent PCP note: "daily Advair and prn albuterol HFA or duonebs as needed. Occasional cough/wheezing depending on allergens. Is short of breath with activity, but thinks this is due to deconditioning and her asthma. Feels her dyspnea is getting worse. Weight is stable. Denies chest pain, palpitations. Continue to take daily zyrtec and singulair as well." * --> stable on room air, no wheezing noted * Will resume advair daily HX: breast cancer: * s/p left mastectomy. Patient on tamoxifen, continued daily Pending Studies at Discharge: No Stand-Alone Forms: [facility] Skilled Items Patient informed of condition?: Yes DNR: Yes Discharge Level of Care: Acute rehab Communicable Disease: No Discharge Prognosis: Stable Lines: None Urinary Catheter: No Medications and DC Order Prescriptions: New acetaminophen 325 mg Tablet 650 mg PO Q4H PRNQty: 0 RF: 0 levothyroxine [Synthroid] 50 mcg Tablet 50 mcg PO DAILYBB Qty: 0 RF: 0 diclofenac sodium [Voltaren Arthritis Pain] 1 % Gel 2 g EXT QID Qty: 0 RF: 0 fluticasone propion-salmeterol [Advair Diskus] 100-50 mcg/dose blister with device 1 inh inhalation BID Qty: 60 RF: 0 potassium chloride [Klor-Con 10] 10 mEq tablet extended release 10 meq PO BID Qty: 28 RF: 0 albuterol sulfate [Ventolin HFA] 90 mcg/actuation HFA aerosol inhaler 2 inh inhalation Q6H PRN (Reason: shortness of breath or wheezing) Qty: 6.7 RF: 0 Continued cetirizine [Zyrtec] 10 mg tablet 10 mg PO DAILY PRN (Reason: allergy symptoms) Qty: 90 RF: 3 vitamin B complex [B Complex-Vitamin B12] tablet 1 tab PO DAILY Qty: 30 RF: 0 sennosides [Senna Laxative] 8.6 mg tablet 8.6 mg PO DAILY PRN (Reason: constipation) Qty: 30 RF: 0 tamoxifen 10 mg Tablet 10 mg PO DAILY RF: 0 omeprazole 20 mg Tablet,Delayed Release (Dr/Ec) 20 mg PO DAILY RF: 0 furosemide [Lasix] 40 mg tablet 40 mg PO BID RF: 0 oxycodone 5 mg tablet 2.5 - 5 mg PO Q6H PRN (Reason: pain) RF: 0 Changed Eliquis 5 mg tablet 2.5 mg PO BID Qty: 180 RF: 3 Discharge Orders: Discharge Order (Routine); Ordered 07/26/21 Ordered By: Marissa Boudreaux Admission Data Admit Date/Time: 07/22/21 13:17 Attending Provider: Rohan Levi Admit Provider: Dante Rogel Primary Care Provider: Annika Salgado Other Providers: Dante Rogel ; Carlos Alberto Langston ; Donald George ; Rene Lima ; Christie Jaimes ; Gurmeet Lopez ; Juana Patel ; Dallin Castelan ; John Lugo ; Kyree Odom ; Brendan Sanchez. ; John Azevedo ; David Fuentes ; Royer Palencia ; Davon Mitchell ; Adan Nino ; Juana Francis ; Jamil Baldwin ; Keegan Singh ; Ebonie Samayoa ; Claude Ugalde ; Elida Lee ; Sotero Raza ; [facility] Other Interventions: Discharge Summary Assessment (RN) Last Done: 07/26/21 11:53 Supervising Physician Co-Signing Physician Notes Attending note: patient seen and examined with Marissa Boudreaux PA-C. I agree with her discharge summary. I personally reviewed the labs and imaging findings. patient doing much better, will go home with family - UTI: complete course of Cefdinir - Fibula fracture: home health, therapy, family help Coding Level of Care Code D/C DAY MANAGEMENT >30 MINS Diagnoses Fall W19.XXXA Encounter type: initial encounter Hypokalemia E87.6 Paroxysmal atrial fibrillation I48.0 Hypothyroidism E03.9 Asthma J45.909 HX: breast cancer Z85.3 B12 deficiency anemia D51.9
== END 2021-07-26 15:28 | DRG 562 ==
LOC: ED 10:13 → SUATTDRO 13:17 → 3E 13:17
DX: E53.8 Deficiency of other specified B group vitamins; N39.0 Urinary tract infection, site not specified; W19.XXXA Unspecified fall, initial encounter; I48.0 Paroxysmal atrial fibrillation; Z96.653 Presence of artificial knee joint, bilateral; I50.33 Acute on chronic diastolic (congestive) heart failure; E87.3 Alkalosis; E03.9 Hypothyroidism, unspecified; G25.81 Restless legs syndrome; E87.6 Hypokalemia; S82.892A Other fracture of left lower leg, initial encounter for closed fracture; Y92.89 Other specified places as the place of occurrence of the external cause; Z85.3 Personal history of malignant neoplasm of breast; E78.5 Hyperlipidemia, unspecified; G93.41 Metabolic encephalopathy; D64.9 Anemia, unspecified; I44.7 Left bundle-branch block, unspecified; I11.0 Hypertensive heart disease with heart failure; B96.20 Unspecified Escherichia coli [E. coli] as the cause of diseases classified elsewhere

== ENCOUNTER 2022-07-06 08:49 | Inpatient (IN) ==
[~2022-07-06 08:49] MED LIST: ETOMIDATE 2 MG/ML 20 ML VIAL IV ONE; RAPID SEQUENCE INDUCTION BAG ONE; SUCCINYLCHOLINE CHLORIDE 20 MG/ML 10 ML VIAL IV ONE
[2022-07-06] MEDS ORDERED: SODIUM CHLORIDE 0.9% 1000ML 1,000 ML IV ONE (09:01)
[2022-07-06 09:13] LABS: iSTAT Creatinine 0.9 mg/dl (0.6-1.3); iSTAT Hemoglobin 11.9 g/dl (12.0-16.0); iSTAT Ionized Calcium 1.12 mmol/l (1.12-1.32)
[2022-07-06 09:16] LABS: Basophils % (auto) 0.7 %; Eosinophils # (auto) 0.75 K/uL (0-0.50); Eosinophils % (auto) 4.9 %; Hematocrit (blood only) 35.4 % (34.1-44.9); Hemoglobin 12.1 g/dl (12.0-16.0); Immature Granulocytes # (auto) 0.24 K/uL (0.00-0.02); Immature Granulocytes % (auto) 1.6 %; Lymphocytes # (auto) 4.11 K/uL (1.2-3.4); Lymphocytes % (auto) 26.7 %; Mean Corpuscular Hemoglobin 31.4 pg (25.0-34.0); Mean Corpuscular Hgb Conc 34.2 g/dL (32.0-36.0); Mean Corpuscular Volume 91.9 fL (80.0-100.0); Monocytes # (auto) 0.87 K/uL (0.24-0.82); Monocytes % (auto) 5.7 %; Neutrophils # (auto) 9.31 K/uL (1.4-6.5); Neutrophils % (auto) 60.4 %; Platelet Count 226 K/uL (130-400); RDW Coefficient of Variation 12.6 % (11.5-14.5); RDW Standard Deviation 42.2 fL (36.4-46.3); Red Blood Count 3.85 M/uL (3.93-5.22); White Blood Count 15.38 K/ul (4.8-10.8)
[2022-07-06] MEDS ORDERED: OPTIRAY 320 500ml IV ONE (09:24)
[2022-07-06 09:28] LABS: INR 1.1 (0.9-1.1); Partial Thromboplastin Ratio 0.9; Partial Thromboplastin Time 25.6 Seconds (21.0-31.0); Prothrombin Time 11.9 Seconds (9.0-12.0)
[2022-07-06 09:37] LABS: Alanine Aminotransferase 16 U/L (7-52); Albumin Globulin Ratio 1.4 (0.9-2); Albumin Level 3.9 gm/dl (3.4-5.0); Alkaline Phosphatase 61 U/L (34-104); Anion Gap 15 (3-11); Aspartate Aminotransferase 24 U/L (13-39); BUN Creatinine Ratio 18.9 (10-20); Bilirubin,Total 0.4 mg/dl (0.2-1.0); Blood Urea Nitrogen 17 mg/dl (6-23); Calcium 9.4 mg/dl (8.5-10.1); Carbon Dioxide 19 mmol/L (21-32); Chloride 104 mmol/L (98-107); Est GFR (African American) 65.7 ml/min; Est GFR (Non-African American) 56.7 ml/min; Globulin 2.8 gm/dl (2.5-4.0); Glucose 167 mg/dl (70-99(Fasting)); Magnesium 2.2 mg/dl (1.7-2.4); Potassium 4.1 mmol/L (3.5-5.1); Sodium 138 mmol/L (136-145); Total Protein 6.7 gm/dl (6.0-8.3)
[2022-07-06 09:48] LABS: Troponin I High Sensitivity 160.5 pg/ml (0-14)
--- NOTE | 2022-07-06 09:59 | XRay Report ---
XR chest 1V portable HISTORY: Intubation. neuro deficit, acute stroke suspected COMPARISON: Chest 07/22/2021. FINDINGS: Endotracheal tube appears to be located within the right mainstem bronchus and should be re tracted by approximately 3 cm. Slightly rotated study. No pneumothorax. No pleural effusions. The car diac silhouette remains mildly enlarged. There is mild central pulmonary vascular congestion without overt edema. Multiple left sided rib fractures which are slightly depressed. There is thickening claudia g the left lateral pleural. IMPRESSION: 1. Endotracheal tube appears to be located within the right mainstem bronchus and should be retracted by approximately 3 cm. 2. Multiple acute and mildly depressed left-sided rib fractures. No pneumothorax. 3. This was discussed with Dr. Sheets at 9:55 AM on 07/06/2021. ACT 112: Negative or not required by law. Electronically signed by: Clyde Yan M.D. 07/06/2022 9:56 AM
--- NOTE | 2022-07-06 10:02 | CT Scan Report ---
CT angio neck with con, CT head/brain wo con, CT angio head w con CLINICAL HISTORY: neuro deficit, acute stroke suspected TECHNIQUE: Contiguous axial CT images of the head were acquired from the base of the skull to the chau amaya without intravenous contrast administration. CT angiography of the head and neck was performed f ollowing intravenous administration of iodinated contrast. Coronal and sagittal MIPS were obtained fr om the axial data set and were submitted for review. Automated dose lowering techniques and/or adjus tment according to patient size were utilized for this examination. All measurements were calculated based on NASCET criteria. CT DOSE: 1102.93 mGy.cm Comparison: Comparison is made to MRI brain 07/23/2021 FINDINGS: CT head: Areas of decreased attenuation are present in the periventricular and subcortical white manjinder er bilaterally consistent with small vessel ischemic disease. Generalized cerebral atrophy with comme nsurate enlargement of the ventricles, sulci, and cisterns is also present. There is no acute intracr anial hemorrhage or evidence of acute territorial infarction. No shift of the midline structures, mas s effect, or extra-axial abnormalities are shown. Atherosclerotic calcifications are present in the intracranial segments of the internal carotid arteries. Lacunar infarcts in the basal ganglia are unc hanged. Biapical scarring is seen. Endotracheal tube is noted. CTA Neck: The left common carotid artery shares common origin with the innominate artery. Atheroscle rotic plaque is present in the aortic arch and at the origin of the great vessels. The common caroti d, external carotid, cervical segments of the internal carotid arteries, and the cervical segments of the vertebral arteries are patent without hemodynamically significant stenosis. The left vertebral a rtery is dominant. CTA Head: The anterior and posterior cerebral circulations are patent. Atherosclerosis is noted in t he proximal clinoid portion of the bilateral internal carotid arteries without hemodynamically signif icant stenosis. origin of the right BOTTOM IRONER is noted. IMPRESSION: 1. No acute intracranial hemorrhage, evidence of acute territorial infarction, or other acute intrac ranial disease process. 2. No occlusion, hemodynamically significant stenosis, or dissection in the major cervical arteries. 3. No occlusion, hemodynamically significant stenosis, aneurysm, dissection, or arteriovenous malfor mation in the major intracranial arteries. Assessment of stenosis of the internal carotid arteries is based on NASCET criteria. ACT 112: Negative or not required by law. Electronically signed by: Rohan Martinez M.D. 07/06/2022 10:00 AM
[2022-07-06 10:03] LABS: Appearance Urine Clear (Clear); Bacteria Urine Automated 4+ (Negative); Bilirubin Urine Negative (Negative); Blood Urine Trace (Negative); Cast Urine Automated 0 /lpf (0-5); Color Urine Yellow; Glucose Urine UA Negative (Negative); Ketones Urine Negative (Negative); Leukocyte Esterase Urine Negative (Negative); Nitrite Urine Negative (Negative); Protein Urine 2+ (Negative); RBC Urine Automated 0-4 /hpf (0-4); Urobilinogen Urine Negative (Negative)
[2022-07-06] MEDS ORDERED: SODIUM CHLORIDE 0.9% 1000ML 1,000 ML IV STA (10:21)
[2022-07-06 10:33] LABS: Influenza A virus by PCR Negative (Neg); Influenza B virus by PCR Negative (Neg); RSV by PCR Negative (Neg); SARS CoV2 RNA(COVID-19) Ceph NEGATIVE (Negative)
--- NOTE | 2022-07-06 10:34 | History & Physical Report ---
Date of Service July 06, 2022 Assessment & Plan (1) Unresponsive: Plan: -Admit to the PCU -Patient brought in this am by EMS after being found down and unresponsive by EMS; last known well was last night at approximately 10:30-11 pm -Patient initially intubated by the ED staff due to mental status and acute respiratory failure, S/P successful extubation as patient's mental status has improved, patient is currently stable on an oxymask at 5L -Initial CT's of the head and CTA's of the head/neck are negative for acute findings -CT of the chest with contrast showing multiple subacute left rib fractures with subacute fracture of the right 11th rib as well, otherwise no other acute findings -CT of the abd/pelvis with IV contrast showed her known rib fractures without other acute trauma or findings noted in the abdomen or pelvis -Due to her extensive skin/soft tissue injuries to all extremities will obtain STAT radiographs of the BL upper and lower extremities for further trauma assessment -Noted to be hypothermic at 28.7C on arrival to the ED and placed on warming blanket and warm IV fluids, temperature is currently 31.4C at the time of the admission, will continue with warming blanket but unable to do warm IV fluids on the PCU so will hold for now -No signs of infection on initial labs/imaging, her leukocytosis is likely due to her acute clinical status, have ordered procal, blood cultures, and urine cultures, will continue to monitor for signs of infection -The cause of her fall is unknown at this time, will have to consider MRI of the brain for further assessment when she is more stable but she is out of the window for any thrombolytic therapy if she were to have an acute ischemic stroke -Monitor on tele/pulse oximetry, continue Castro placement for now to monitor I's/O's closely -Spoke with the Medical Researcher personal injury paralegal, with her improvement after initial warming and successful extubation would place patient on PCU for now, if she were to decline clinically can reconsider transfer to the ICU -Wound nurse consult placed for her extensive skin abrasions -Speech therapy consult placed, will keep patient NPO for now until she is evaluated -DVT PPX with BL SCDs for now, will hold chemical PPX until she is stable and without bleeding (2) High anion gap metabolic acidosis: Plan: -Initial AG noted to be 15 with bicarb of 19, ABG has been ordered but not yet obtained -Initial lactate noted to be 4.3, likely due to poor perfusion due to hypothermia -Renal function and electrolytes are stable -Will switch patient from NSS to LR at 100 mL/hr while NPO for adequate hydration -Will trend lactate, follow up with ABG, will trend CMP q6h for now until she is more stable (3) Elevated troponin: Plan: -Initial high sensitivity trop noted to be 160, 2 hour repeat is in process -ECG is without acute ST segment or T-wave changes -Likely due to demand from being down overnight, outside -Will continue to trend trops until peak and will continue to monitor on tele (4) Elevated CK: Plan: -Initial noted to be 519, stable renal function and electrolytes -Likely due to being down all night -Will continue IV fluids and trending CK until it peaks (5) Ribs, multiple fractures: Plan: -Patient found to have multiple subacute rib fractures on the right and left chest, ICU confirmed that they appear subacute and not acute from her recent fall -Patien tis currently stable on 5L oxymask and is in no respiratory distress -Will follow-up with the remaining trauma scans ordered on admission (6) Paroxysmal atrial fibrillation: Plan: -Noted to be tachycardic in the low 100's at this time -Hemodynamically stable -Mild RVR likely due to compensation for her acute clinical status, will monitor for now as she is adequately resuscitated -Will hold eliquis for now until we can confirm that she is stable and without an active bleed -Not currently on rate or rhythm control, continue to monitor on tele for now (7) GERD (gastroesophageal reflux disease): Plan: -IV Protonix daily until she can take PO meds safely (8) Hypothyroidism: Plan: -Will FU with TSH ordered on admission -Continue levothyroxine (9) Hypertension: Plan: -Currently hemodynamically stable -Not on antihypertensive agents at home -Continue to monitor for now Plan The patient was seen with and discussed with Dr. Ann at the time of the admission History of Present Illness Chief Complaint: Unresponsive Primary Care Provider: HARSHA Menezes Chantal is an 87 year old female with a PMH significant for Paroxysmal atrial fibrillation on Eliquis, LBBB, GERD, asthma, anxiety, hypothyroidism, who presented to the [facility] ED on 07/06/22 via EMS after being found unresponsive outside this am. In the ED the patient was found to be hypothermic at 28.7, hemodynamically stable, but hypoxic in the 80's on 15L NRB by EMS. The patient was subsequently intubated prior to family arriving to the ED. Labs were initially remarkable for 15.38 with an absolute neutrophil count of 9.31, stable hgb at 12.1, stable platelets at 226, INR of 1.1, stable cr of 0.90, AG of 15 with a bicarb 19, glucose of 167, stable electrolytes, stable liver function, initial high sensitivity trop of 160, UA with 4+ bacteria otherwise no other signs of possible UTI, Covid/RSV/Influenza negative, lactate of 4.3, total CK of 519, Chest xray was read as "1. Endotracheal tube appears to be located within the right mainstem bronchus and should be retracted by approximately 3 cm. 2. Multiple acute and mildly depressed left-sided rib fractures. No pneumothorax. 3. This was discussed with Dr. Sheets at 9:55 AM on 07/06/2021.". CT of the brain and CTA of the head/neck was read as "1. No acute intracranial hemorrh age, evidence of acute territorial infarction, or other acute intracranial disease process. 2. No occlusion, hemodynamically significant stenosis, or dissection in the major cervical arteries. 3. No occlusion, hemodynamically significant stenosis, aneurysm, dissection, or arteriovenous malformation in the major intracranial arteries.". The patient was initially given 1L NSS and was then started on NSS at 125 mL/hr. She was placed on a warming blanket due to her hypothermia and additional labs including STAT lactate, ABG, and CK were ordered. The medicine team requested that the ER speak with the ICU prior to admission and also obtain CT of the chest with IV contrast was read as "1. Multiple left-sided rib fractures which appear to be subacute. The eighth and ninth rib fractures are age indeterminate. 2. Interstitial lung disease is noted. Cardiomegaly is seen". CT of the abdomen/pelvis with Iv contrast was read as " At the time of the exam the patient was lying in bed in no obvious distress, at the time of my exam her family had left the trauma bay. The patient had her eyes open but would not follow commands or make eye contact when speaking with her. I spoke with her biological daughter, Milvia Coffey after examining the patient. The patient lives with her daughter and her daughter's . Her daughter states that her last known well was last night at approximately 10:30- 11 pm. Per her daughter, the patient was in her normal state of health yesterday. She was alert and oriented to self, place, and those she is familiar with. She was able to make her own breakfast, lunch, and dinner. This morning at approximately 0730 their neighbor knocked on their door and told them that their "daughter" was lying in their driveway. They quickly realized that this was their mother when they went out to see. Her mother was cold and not responding to them, her picked her mother up and brought her inside the house prior to calling EMS. I explained to the patient's daughter that the patient is very ill at this time and we are asking the ED to obtain further imaging and labs. I also explained that we were waiting to hear back from the ICU whether or not she was accepted by the motorcyles final inspector personal injury paralegal. I spoke to the daughter regarding code status and goals of care moving forward. At this time since the patient is already intubated the patient's daughter would like to see how she responds and if she improves at all. Her daughter would NOT want CPR or defibrillation if she were to go into cardiac arrest. If the rest of her initial workup were to show critical findings or if she were to continue to decline clinically her daughter would want her extubated and transitioned to comfort measures. Update 11:59 am: After reassessment the patient was beginning to appear more alert and following commands as her body temperature began to improve. When asked by the ED staff if she would want the endotracheal tube removed the patient nodded her head yes. We discussed the options with the patient's daughter. Her daughter expressed understanding that if we removed the breathing tube and the patient declined clinically we would not re-intubate her, per the daughter's request. She confirmed this decision and requested we attempt to extubate the patient. The ED staff successfully extubated the patient who remain ed stable on an Oxymask. Please refer to Dr. Ann's attestation for any changes to the treatment plan Allergies Allergy/AdvReac Type Severity Reaction Status Date / Time No Known Drug Allergies Allergy Verified 03/02/22 16:36 Home Medications Medication Instructions Recorded Confirmed Type sennosides 8.6 mg tablet (Senna 8.6 mg PO DAILY PRN constipation 02/19/19 03/02/22 Rx Laxative) #30 tabs vitamin B complex (B 1 tab PO DAILY #30 tabs 02/19/19 03/02/22 Rx Complex-Vitamin B12 tablet) omeprazole 20 mg tablet,delayed 20 mg PO DAILY 07/22/21 03/02/22 History release acetaminophen 325 mg tablet 650 mg PO Q4H PRN #0 tabs 07/26/21 03/02/22 Rx albuterol sulfate 90 mcg/actuation 2 inh inhalation Q6H PRN shortness 07/26/21 03/02/22 Rx aerosol inhaler (Ventolin HFA) of breath or wheezing #6.7 grams diclofenac sodium 1 % topical gel 2 g EXT QID #0 grams 07/26/21 03/02/22 Rx (Voltaren Arthritis Pain) fluticasone 100 mcg-salmeterol 50 1 inh inhalation BID #60 ea 07/26/21 03/02/22 Rx mcg/dose blistr powdr for inhalation (Advair Diskus) furosemide 40 mg tablet (Lasix) 40 mg PO BID #180 tabs 01/13/22 03/02/22 Rx clorazepate dipotassium 7.5 mg 7.5 mg PO BID PRN anxiety #60 tabs 04/22/22 Rx tablet oxycodone 5 mg tablet 5 mg PO BID PRN pain #40 tabs 06/17/22 Rx apixaban 2.5 mg tablet 2.5 mg PO BID #180 tabs 06/30/22 Rx cetirizine 10 mg tablet (Zyrtec) 10 mg PO DAILY PRN allergy 06/30/22 Rx symptoms #90 tabs levothyroxine 50 mcg tablet 50 mcg PO DAILYBB #90 tabs 06/30/22 Rx (Synthroid) montelukast 10 mg tablet 10 mg PO QPM #90 tabs 06/30/22 Rx (Singulair) potassium chloride 10 mEq 10 meq PO BID #28 tabs 06/30/22 Rx tablet,extended release (Klor-Con) pramipexole 0.75 mg tablet 0.75 mg PO DAILY #90 tabs 06/30/22 Rx Past Med/Surg History Medical History AMS (altered mental status) Arthritis Breast cancer CHI (closed head injury) Cholecystitis Depression with anxiety Fall Fracture of pubis without disruption of pelvic ring Hearing difficulty HX: breast cancer left breast (mastectomy) Hyperlipemia Hypertension Hypokalemia Hypothyroidism Left hip pain Migraine New onset a-fib Pneumonia Rhabdomyolysis Vision problem Surgical History H/O mastectomy left H/O: hysterectomy History of knee replacement BILATERAL Hx of cholecystectomy Family History Sister No problems noted. Mother Heart disease Hypertension Lung cancer Denies family history of Ovarian cancer Prostate cancer Breast cancer Colorectal cancer Social History Smoking Status: Unknown if ever smoked Second Hand Exposure: Yes; Hx Alcohol Use: No Hx Substance Use: No Preferred Language: Senegalese Communication Ability: Effective Director Electrical Engineering Required: No Beliefs That Will Affect Care: None marital status: / Current Living Situation: Family current occupational status: retired Other Information That Helps Us Care for You: No Feels Safe at Home: Yes Safety Concerns: Feels Safe At This Time Dental Care, Regularly: No Physical Activity Frequency: Does not Exercise Seatbelt Use: always Assistive Devices: Glasses and Walker Review of Systems Review of Systems: ROS unable to be obtained at the time of the exam due to patient's current mental status Physical Exam Physical Exam: Physical Exam: General: In no acute distress, stated age, acutely ill-appearing HEENT: Patient with multiple abrasions and lacerations to the head a face, swelling noted above the left eye, patient is now extubated and without acute trauma noted in the oropharynx, patient opens eyes, is able to turn head [id number], pupils are round, symmetrical and minimally reactive to light, no scleral icterus, trachea is midline, no thyromegaly Chest/Pulm: No respiratory distress on Oxymask, symmetrical chest expansion, clear lung sounds throughout Cardiac: tachycardic rate, irregular rhythm, no murmurs noted Abdomen: Negative for ascites and bruising, normoactive bowel sounds, soft, patient does not guard or react to palpation of the abdomen : Patient with castro cath in place, currently draining clear, yellow urine Musculoskeletal: Patient with multiple abrasions and skin lacerations on the upper and lower extremities. No obvious deformities noted on palpation/inspection of the BL Upper extremities. Patient with large skin tear on the RLE with some blood oozing, large area of dark/black skin on the proximal/left great right toe, , no other obvious bony deformities noted on inspection of the BL LE's, Extremities: Radial, dorsalis pedis, and posterior tibial pulses are weak, distal extremities are cool to the touch with cap refill current at 3 seconds, patient is without pitting edema in the BL lower extremities Skin: Cool, as described above Neuro: Alert and oriented to person, place, month, year, and president, no focal defects, CN II-XII tested and intact, finger to nose test negative, no tremors noted Psych: No acute distress, calm, now following commands since extubated, cooperative during the exam Results & Data Results & Data ([facility]) Vital Signs (Past 12 Hours) Vital Signs Temp Pulse Resp BP Pulse Ox O2 Del Method O2 Flow Rate 07/06/22 10:00 28.7 C L 142 H 24 100 Mechanical Vent 07/06/22 09:51 121/74 Mechanical Vent 07/06/22 09:51 28.5 C L 83 22 98 Mechanical Vent 07/06/22 09:50 28.5 C L 73 19 98 Mechanical Vent 07/06/22 09:40 28.3 C L 78 21 94 Mechanical Vent 07/06/22 09:36 28.2 C L 75 18 99 Mechanical Vent 07/06/22 09:36 147/77 H Mechanical Vent 07/06/22 09:10 60 20 Mechanical Vent 07/06/22 09:05 104/55 L Mechanical Vent 07/06/22 09:05 68 20 100 Mechanical Vent 07/06/22 09:00 87 23 Mechanical Vent 07/06/22 09:00 89/53 L Mechanical Vent 07/06/22 08:59 95 H 30 H Mechanical Vent 07/06/22 08:59 101/55 L Mechanical Vent 07/06/22 08:50 118 H 18 15 L Non-rebreather 07/06/22 08:50 130/49 L 15 L Non-rebreather 07/06/22 09:38 82 24 93 07/06/22 08:56 130/49 L 84 L Non-rebreather 15 FiO2 07/06/22 10:00 07/06/22 09:51 07/06/22 09:51 07/06/22 09:50 07/06/22 09:40 07/06/22 09:36 07/06/22 09:36 07/06/22 09:10 07/06/22 09:05 07/06/22 09:05 07/06/22 09:00 07/06/22 09:00 07/06/22 08:59 07/06/22 08:59 07/06/22 08:50 07/06/22 08:50 07/06/22 09:38 40 07/06/22 08:56 Laboratory Results Abnormal lab results 07/06/22 07/06/22 07/06/22 Range/Units 08:55 08:57 08:57 WBC 15.38 H (4.8-10.8) K/ul RBC 3.85 L (3.93-5.22) M/uL POC Hgb (12.0-16.0) g/dl POC Hct (37-47) % MPV 9.0 L (9.4-12.3) fL Neut # (Auto) 9.31 H (1.4-6.5) K/uL Lymph # (Auto) 4.11 H (1.2-3.4) K/uL [place] # (Auto) 0.87 H (0.24-0.82) K/uL Eos # (Auto) 0.75 H (0-0.50) K/uL Immature Gran # (Auto) 0.24 H (0.00-0.02) K/uL Carbon Dioxide 19 L (21-32) mmol/L POC Total CO2 (24-31) mmol/L Anion Gap 15 H (3-11) Glucose 167 H (70-99(Fasting)) mg/dl POC Glucose 166 H (70-99) mg/dl POC Glucose (other) (70-99) mg/dl Troponin I High Sens 160.5 H* (0-14) pg/ml Urine Protein (Negative) Urine Blood (Negative) U Epithel Cells (Auto) (0-5) /lpf Urine Bacteria (Auto) (Negative) 07/06/22 07/06/22 Range/Units 09:00 09:45 WBC (4.8-10.8) K/ul RBC (3.93-5.22) M/uL POC Hgb 11.9 L (12.0-16.0) g/dl POC Hct 35 L (37-47) % MPV (9.4-12.3) fL Neut # (Auto) (1.4-6.5) K/uL Lymph # (Auto) (1.2-3.4) K/uL [place] # (Auto) (0.24-0.82) K/uL Eos # (Auto) (0-0.50) K/uL Immature Gran # (Auto) (0.00-0.02) K/uL Carbon Dioxide (21-32) mmol/L POC Total CO2 22 L (24-31) mmol/L Anion Gap (3-11) Glucose (70-99(Fasting)) mg/dl POC Glucose (70-99) mg/dl POC Glucose (other) 162 H (70-99) mg/dl Troponin I High Sens (0-14) pg/ml Urine Protein 2+ H (Negative) Urine Blood Trace H (Negative) U Epithel Cells (Auto) 10-20 H (0-5) /lpf Urine Bacteria (Auto) 4+ H (Negative) Diagnostic Findings Chest X-Ray 07/06/22 08:46 XR chest 1V portable HISTORY: Intubation. neuro deficit, acute stroke suspected COMPARISON: Chest 07/22/2021. FINDINGS: Endotracheal tube appears to be located within the right mainstem bronchus and should be retracted by approximately 3 cm. Slightly rotated study. No pneumothorax. No pleural effusions. The cardiac silhouette remains mildly enlarged. There is mild central pulmonary vascular congestion without overt edema. Multiple left sided rib fractures which are slightly depressed. There is thickening along the left lateral pleural. IMPRESSION: 1. Endotracheal tube appears to be located within the right mainstem bronchus and should be retracted by approximately 3 cm. 2. Multiple acute and mildly depressed left-sided rib fractures. No pneumothorax. 3. This was discussed with Dr. Sheets at 9:55 AM on 07/06/2021. ACT 112: Negative or not required by law. Electronically signed by: Clyde Yan M.D. 07/06/2022 9:[address] 07/06/22 08:46 CT angio neck with con, CT head/brain wo con, CT angio head w con CLINICAL HISTORY: neuro deficit, acute stroke suspected TECHNIQUE: Contiguous axial CT images of the head were acquired from the base of the skull to the vertex without intravenous contrast administration. CT angiography of the head and neck was performed following intravenous administration of iodinated contrast. Coronal and sagittal MIPS were obtained from the axial data set and were submitted for review. Automated dose lowering techniques and/or adjustment according to patient size were utilized for this examination. All measurements were calculated based on NASCET criteria. CT DOSE: 1102.93 mGy.cm Comparison: Comparison is made to MRI brain 07/23/2021 FINDINGS: CT head: Areas of decreased attenuation are present in the periventricular and subcortical white matter bilaterally consistent with small vessel ischemic disease. Generalized cerebral atrophy with commensurate enlargement of the ventricles, sulci, and cisterns is also present. There is no acute intracranial hemorrhage or evidence of acute territorial infarction. No shift of the midline structures, mass effect, or extra-axial abnormalities are shown. Atherosclerotic calcifications are present in the intracranial segments of the internal carotid arteries. 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 Biapical scarring is seen. Endotracheal tube is noted. CTA Neck: The left common carotid artery shares common origin with the innominate artery. Atherosclerotic plaque is present in the aortic arch and at the origin of the great vessels. The common carotid, external carotid, cervical segments of the internal carotid arteries, and the cervical segments of the vertebral arteries are patent without hemodynamically significant stenosis. The left vertebral artery is dominant. CTA Head: The anterior and posterior cerebral circulations are patent. Atherosclerosis is noted in the proximal clinoid portion of the bilateral internal carotid arteries without hemodynamically significant stenosis. origin of the right PER DIEM PHYSICAL THERAPIST is noted. IMPRESSION: 1. No acute intracranial hemorrhage, evidence of acute territorial infarction, or other acute intracranial disease process. 2. No occlusion, hemodynamically significant stenosis, or dissection in the major cervical arteries. 3. No occlusion, hemodynamically significant stenosis, aneurysm, dissection, or arteriovenous malformation in the major intracranial arteries. Assessment of stenosis of the internal carotid arteries is based on NASCET criteria. ACT 112: Negative or not required by law. Electronically signed by: Rohan Martinez M.D. 07/06/2022 10:00 AM Head CTA 07/06/22 08:46 CT angio neck with con, CT head/brain wo con, CT angio head w con CLINICAL HISTORY: neuro deficit, acute stroke suspected TECHNIQUE: Contiguous axial CT images of the head were acquired from the base of the skull to the vertex without intravenous contrast administration. CT angiography of the head and neck was performed following intravenous administration of iodinated contrast. Coronal and sagittal MIPS were obtained from the axial data set and were submitted for review. Automated dose lowering techniques and/or adjustment according to patient size were utilized for this examination. All measurements were calculated based on NASCET criteria. CT DOSE: 1102.93 mGy.cm Comparison: Comparison is made to MRI brain 07/23/2021 FINDINGS: CT head: Areas of decreased attenuation are present in the periventricular and subcortical white matter bilaterally consistent with small vessel ischemic disease. Generalized cerebral atrophy with commensurate enlargement of the ventricles, sulci, and cisterns is also present. There is no acute intracranial hemorrhage or evidence of acute territorial infarction. No shift of the midline structures, mass effect, or extra-axial abnormalities are shown. Atherosclerotic calcifications are present in the intracranial segments of the internal carotid arteries. 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 Biapical scarring is seen. Endotracheal tube is noted. CTA Neck: The left common carotid artery shares common origin with the innominate artery. Atherosclerotic plaque is present in the aortic arch and at the origin of the great vessels. The common carotid, external carotid, cervical segments of the internal carotid arteries, and the cervical segments of the vertebral arteries are patent without hemodynamically significant stenosis. The left vertebral artery is dominant. CTA Head: The anterior and posterior cerebral circulations are patent. Atherosclerosis is noted in the proximal clinoid portion of the bilateral internal carotid arteries without hemodynamically significant stenosis. origin of the right PER DIEM PHYSICAL THERAPIST is noted. IMPRESSION: 1. No acute intracranial hemorrhage, evidence of acute territorial infarction, or other acute intracranial disease process. 2. No occlusion, hemodynamically significant stenosis, or dissection in the major cervical arteries. 3. No occlusion, hemodynamically significant stenosis, aneurysm, dissection, or arteriovenous malformation in the major intracranial arteries. Assessment of stenosis of the internal carotid arteries is based on NASCET criteria. ACT 112: Negative or not required by law. Electronically signed by: Rohan Martinez M.D. 07/06/2022 10:00 AM Neck CTA 07/06/22 08:46 CT angio neck with con, CT head/brain wo con, CT angio head w con CLINICAL HISTORY: neuro deficit, acute stroke suspected TECHNIQUE: Contiguous axial CT images of the head were acquired from the base of the skull to the vertex without intravenous contrast administration. CT angiography of the head and neck was performed following intravenous administration of iodinated contrast. Coronal and sagittal MIPS were obtained from the axial data set and were submitted for review. Automated dose lowering techniques and/or adjustment according to patient size were utilized for this examination. All measurements were calculated based on NASCET criteria. CT DOSE: 1102.93 mGy.cm Comparison: Comparison is made to MRI brain 07/23/2021 FINDINGS: CT head: Areas of decreased attenuation are present in the periventricular and subcortical white matter bilaterally consistent with small vessel ischemic disease. Generalized cerebral atrophy with commensurate enlargement of the ventricles, sulci, and cisterns is also present. There is no acute intracranial hemorrhage or evidence of acute territorial infarction. No shift of the midline structures, mass effect, or extra-axial abnormalities are shown. Atherosclerotic calcifications are present in the intracranial segments of the internal carotid arteries. 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 Biapical scarring is seen. Endotracheal tube is noted. CTA Neck: The left common carotid artery shares common origin with the innominate artery. Atherosclerotic plaque is present in the aortic arch and at the origin of the great vessels. The common carotid, external carotid, cervical segments of the internal carotid arteries, and the cervical segments of the vertebral arteries are patent without hemodynamically significant stenosis. The left vertebral artery is dominant. CTA Head: The anterior and posterior cerebral circulations are patent. Atherosclerosis is noted in the proximal clinoid portion of the bilateral paid intern al carotid arteries without hemodynamically significant stenosis. origin of the right PER DIEM PHYSICAL THERAPIST is noted. IMPRESSION: 1. No acute intracranial hemorrhage, evidence of acute territorial infarction, or other acute intracranial disease process. 2. No occlusion, hemodynamically significant stenosis, or dissection in the major cervical arteries. 3. No occlusion, hemodynamically significant stenosis, aneurysm, dissection, or arteriovenous malformation in the major intracranial arteries. Assessment of stenosis of the internal carotid arteries is based on NASCET criteria. ACT 112: Negative or not required by law. Electronically signed by: Rohan Martinez M.D. 07/06/2022 10:00 AM ECG Additional Comments: Poor data quality, interpretation may be adversely affected Atrial fibrillation Left bundle branch block Abnormal ECG When compared with ECG of 22-JUL-2021 10:28, Atrial fibrillation has replaced Sinus rhythm QT has lengthened Code Status & VTE Plan Code Status DNR/DNI VTE Prophylaxis Plan VTE Prophylaxis will be ordered: Yes Supervising Physician Co-Signing Physician Notes I personally saw and examined the patient. I verified all wayne points and agree with Gianfranco Otero PA-C with the following exceptions and/or additions: 87 year old female presents to the ER with unresponsiveness and hypothermia. Intubated in the emergency room due to unresponsiveness. After warming to 31 C she became more responsive and breathing by herself, following one-step commands. She was extubated in the emergency room. Discussed case with Dr. Thomas and now she is rewarmed with no arrhythmias when she was intubated and hypothermic likeliness of cardiac arrhythmia at this stage is significantly less. Rib fractures on CT scan appear to be subacute with bridging. Given these details she was admitted to the PCU for ongoing management. Unable to get any history from the patient after extubation - she reports possibly falling out of bed. O/E Alert but not orientated x3, No focal neuropathy, PERRL, EOMI intact, no facial droop, HS1+2, no murmurs, Chest CTAB, Abdo SNT, Multiple abrasions without cellulitis over all 4 extremities and left side of her face which all appear acute A/P Unresponsiveness - unclear cause. No infective cause found (4+ bacteria in urine without leukocyte esterase or nitrites will monitor urine and blood cultures but suspect contamination given she was in her normal health yesterday) and procalcitonin negative. Brain MRI to assess for hypoxic brain injury. Hypothermia - continue re-warming with blankets and warm oxygen if needed. Suspected secondary to just being outside. TSH WNL. Cortisol deferred given normal hemodynamics. Lactic acidosis due to poor perfusion - IV fluids as above Multiple subacute fractures - incentive spirometer PG Care Time/CCT Total # of Minutes Spent Total Time Spent with Patient: Total time spent is greater than 50% in coordination of care (as documented) at patient's floor/unit and/or counseling patient: [place]oding [place] [address] INT INP/OBS CARE 3/75MIN Patient Type Established Medical Decision Making High Complexity Diagnoses Unresponsive R41.89 High anion gap metabolic acidosis E87.29 Elevated troponin R77.8 Elevated CK R74.8 Ribs, multiple fractures S22.49XA Paroxysmal atrial fibrillation I48.0 GERD (gastroesophageal reflux disease) K21.9 Hypothyroidism E03.9 Hypertension I10
[2022-07-06] MEDS ORDERED: OPTIRAY 350 100ml IV ONE (11:20)
--- NOTE | 2022-07-06 11:32 | Electrocardiogram Report ---
Test Reason : Blood Pressure : / mmHG Vent. Rate : 076 BPM Atrial Rate : 079 BPM P-R Int : 000 ms QRS Dur : 146 ms QT Int : 580 ms P-R-T Axes : 000 -10 125 degrees QTc Int : 652 ms Poor data quality, interpretation may be adversely affected Sinus rhythm with frequent Premature atrial complexes Left bundle branch block Abnormal ECG When compared with ECG of 22-JUL-2021 10:28, Premature atrial complexes are now Present Confirmed by Kan Ames ([id number]) on 07/06/2022 11:32:16 AM Referred By: Confirmed By:Kan Ames
--- NOTE | 2022-07-06 11:44 | CT Scan Report ---
CT chest diagnostic w con CLINICAL HISTORY: fall, rib fractures, intubated TECHNIQUE: Multidetector row helical CT of the chest was performed with intravenous contrast. Coronal and sagittal reformations were obtained. Automated dose lowering techniques and/or adjustment accord ing to patient size were utilized for this exam. CT DOSE: 1121.27 mGycm Comparison: Comparison is made to chest radiograph 07/06/2022 FINDINGS: Lungs and pleura: Endotracheal tube has been retracted and is in satisfactory position. Interstitial lung disease is seen and there may be a trace left pleural effusion. Heart and pericardium: Cardiomegaly is seen with biatrial enlargement. Vessels: Unremarkable. Mediastinum and issac: Prominent lymph nodes measure up to 11 mm. Chest wall and lower neck: Unremarkable. Abdomen: For findings below the diaphragm, please refer to CT of the abdomen dated the same. Bones: Left-sided rib fractures are seen involving the lateral aspect of the fourth, fifth, sixth, se venth, eighth, and ninth ribs, many of these fractures appear subacute with irregular bony bridging. Old healed fracture of the sternum is seen. Multilevel degenerative changes are seen. IMPRESSION: 1. Multiple left-sided rib fractures which appear to be subacute. The eighth and ninth rib fractures are age indeterminate. 2. Interstitial lung disease is noted. Cardiomegaly is seen. ACT 112: Negative or not required by law. Electronically signed by: Rohan Martinez M.D. 07/06/2022 11:43 AM
--- NOTE | 2022-07-06 12:00 | CT Scan Report ---
CT abd pelvis IV con only CLINICAL HISTORY: fall, trauma TECHNIQUE: Helical axial images of the abdomen and pelvis were obtained and displayed. Automated dose lowering techniques and/or adjustment according to patient size were utilized for this exam. This e xam was performed with intravenous contrast. COMPARISON: Comparison is made to CT abdomen pelvis 08/13/2020 FINDINGS: Lower chest: For findings above the diaphragm, please see CT chest performed same day. Liver: Unremarkable. No focal lesions are seen. Gallbladder and biliary tree: Patient is status post cholecystectomy. No intra- or extrahepatic bilia ry ductal dilation. Pancreas: Unremarkable, no focal lesions. Spleen: Unremarkable. Adrenals: Unremarkable. Kidneys and ureters: A right renal cyst is seen. Bladder: Toscano catheter is seen. Reproductive organs: Unremarkable. Bowel: Unremarkable. Lymph nodes Retroperitoneal: Unremarkable. Pelvic: Unremarkable. Mesenteric: Unremarkable. Peritoneum: Normal. Vessels: Atherosclerotic calcifications are seen. Abdominal wall: A right inguinal hernia contains fluid and part of a loop of bowel without evidence o f obstruction. Bones: There is an age-indeterminate fracture of the right 11th rib. Partial visualization of a age-i ndeterminate left rib fractures. Degenerative changes are seen in the lumbar spine. Previously noted femur is not seen. This may have been artifactual. IMPRESSION: There is an age-indeterminate fracture of the right 11th rib. Subacute appearing left rib fractures a re again seen. No acute intra-abdominal abnormality and in particular no evidence of traumatic injury to the abdominal organs. Additional findings are as above. ACT 112: Negative or not required by law. Electronically signed by: Rohan Martinez M.D. 07/06/2022 11:58 AM
[2022-07-06] MEDS: LACTATED RINGER'S 1,000 ML IV SCH (12:50)
--- NOTE | 2022-07-06 13:14 | Emergency Department Note ---
Impression & Plan Unresponsive, Demand ischemia, Rhabdomyolysis, Ribs, multiple fractures, Hypothermia ED Provider Note CHIEF COMPLAINT: Altered mental status, found down outside HISTORY OF PRESENT ILLNESS: This 87-year-old female patient presents to the emergency department by EMS after being found outside at the end of the driveway. Patient's zitarzvv-hu-mgj received a call from a neighbor stating the above. EMS was notified. Uycvajfs-nh-txj states she had not seen her since midnight and could have wandered outside at any point. Patient does not usually go outside and this is unusual behavior. Per EMS the patient did not have "much on clothing stuart." History and report are limited secondary to the patient's acuity and no witnesses to the incident REVIEW OF SYSTEMS: Unable to obtain review of systems secondary to the patient's acuity/mental status ALLERGIES: see below MEDICATIONS: see below PMH: see below SOCIAL HISTORY: see below DDx: Infection, dehydration, metabolic abnormality, hypo/hyperglycemia, electrolyte disturbance, anemia, hypoxia, cardiac sources, intracerebral event, toxicologic, neurologic, as well as other pathologies. PHYSICAL EXAM: Vital signs reviewed. Noted to be hypothermic with a normal blood pressure, pulse ox difficult to obtain General: Elderly, 87-year-old female, in critical condition, altered and not responding HEENT: No scleral icterus, PERRLA, neck supple. Left periorbital edema/abrasion with small hematoma, a dentulous with moist mucous membranes. Cardiovascular: Regular rate and rhythm, no extra sounds. Pulmonary: Clear to auscultation bilaterally, normal work of breathing. Abdomen: Soft, nontender, nondistended, positive bowel sounds. Musculoskeletal: Abrasions as below, no peripheral edema or deformity. Neurologic: Patient unresponsive with only periodic movement to pain, not consistent Skin: Cool to touch, dry, significant abrasion with dirt to the left side of the body upper and lower extremity. EMERGENCY DEPARTMENT COURSE/MDM: External records were reviewed. This patient was evaluated noted to be unresponsive. She was on nonrebreather and O2 saturations were difficult to obtain. EMS was unable to obtain a temperature prior to arrival. Rectal temperature would not register initially. A temperature Toscano was placed at 28.2. IV access was obtained and laboratory work was drawn. Patient was felt to be unstable as she was unresponsive and no pulse ox could be obtained. She was intubated as family had told EMS the patient was a full code. The patient was placed under a Griselda hugger and warmed IV fluids were initiated. Patient's presentation is concerning for left upper and lower extremity abrasions, facial hematoma. CT imaging of the head was performed and is negative for acute traumatic finding and/or intracranial hemorrhage. There is no evidence of stroke on CT angiogram. Patient's laboratory work reveals elevated WBC at 15,000. high-sensitivity troponin is elevated at 160. The patient was intubated using etomidate and succinylcholine as below. This procedure was without incident. Patient did not require postprocedural sedation or paralytics. She was rewarmed and did eventually sta rt to open her eyes. She was not consistent about following commands initially. 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 Patient's [id number]-[id number]/POA was at the bedside and agreed to trial extubation after discussion regarding her desire not to be reintubated. Patient tolerated this extubation without difficulty. She was able to speak her name. She was placed on oxygen mask. The case was discussed with the hospitalist service for admission and further management. Patient's total CK came back at 953, troponin on repeat is rising at 222, likely demand mediated. I suspect the patient bec rachael confused overnight and wandered outside. The patient either had some sort of medical event or mechanical event that caused a fall and was unable to get up. I do believe her unresponsiveness is related to her hypothermia. I do not believe there is an acute infectious process although urine cultures are pending. PROCEDURE:Endotracheal Intubation Indication: Unresponsive, unable to obtain pulse ox The patient was on 100% oxygen via NRB prior to the procedure. Suction, airway equipment, RSI drugs, respiratory equipment, and appropriate personnel were prepared prior to the initiation of the procedure. A time out was taken. Induction was performed with 20 mg of etomidate and 100 mg succinylcholine of after observing the clinical benefit of the medications, the airway was easily visualized utilizing a glide scope. A 7.5 size ETT tube was placed atraumatically to 24 cm using standard technique. The cuff inflated without signs of malfunction. There were bilateral breath sounds, positive colormetric change, no gastric sounds, a good capnography waveform, and post procedure pulse oximetry was 100%. Post intubation sedation and paralysis were not necessary. There were no complications. MONITORING: An order for cardiac monitoring was placed and the patient is noted to be in a normal sinus rhythm at 95 beats per minute. RADIOLOGY: Chest x-ray to my interpretation reveals ET tube at the bifurcation of the mainstem, multiple left-sided rib fractures,, no focal lung consolidation, no failure. Otherwise defer to radiology's overread. EKG: To my interpretation reveals sinus rhythm with frequent PACs. Left bundle branch block. QTC is prolonged at 652. Normal ST segments. DISPOSITION: Home I have personally spent greater than 75 minutes of critical care time in the direct management of this patient. This includes bedside care, interpretation of diagnostic studies, and testing, discussion with consultants, patient, and family members, and other required patient management activities. This 75 minutes is in excess of all separately billable procedures. Past Med/Surg History Medical History AMS (altered mental status) Arthritis Breast cancer CHI (closed head injury) Cholecystitis Depression with anxiety Fall Fracture of pubis without disruption of pelvic ring Hearing difficulty HX: breast cancer left breast (mastectomy) Hyperlipemia Hypertension Hypokalemia Hypothyroidism Left hip pain Migraine New onset a-fib Pneumonia Rhabdomyolysis Vision problem Surgical History H/O mastectomy left H/O: hysterectomy History of knee replacement BILATERAL Hx of cholecystectomy Family History Sister No problems noted. Mother Heart disease Hypertension Lung cancer Denies family history of Ovarian cancer Prostate cancer Breast cancer Colorectal cancer Social History Smoking Status: Unknown if ever smoked Second Hand Exposure: Yes; Hx Alcohol Use: No Hx Substance Use: No Preferred Language: Bolivian Communication Ability: Effective Operating Cost Clerk Required: No Beliefs That Will Affect Care: None marital status: / Current Living Situation: Family current occupational status: retired Feels Safe at Home: Yes Dental Care, Regularly: No Physical Activity Frequency: Does not Exercise Seatbelt Use: always Assistive Devices: Glasses and Walker Allergies Allergies Allergy/AdvReac Type Severity Reaction Status Date / Time No Known Drug Allergies Allergy Verified 03/02/22 16:36 Home Meds Home Medications Medication Instructions Recorded Confirmed omeprazole 20 mg tablet,delayed 20 mg PO DAILY 07/22/21 03/02/22 release Previous Rx's Medication Instructions Recorded sennosides 8.6 mg tablet (Senna 8.6 mg PO DAILY PRN constipation 02/19/19 Laxative) #30 tabs vitamin B complex (B 1 tab PO DAILY #30 tabs 02/19/19 Complex-Vitamin B12 tablet) acetaminophen 325 mg tablet 650 mg PO Q4H PRN #0 tabs 07/26/21 albuterol sulfate 90 mcg/actuation 2 inh inhalation Q6H PRN shortness 07/26/21 aerosol inhaler (Ventolin HFA) of breath or wheezing #6.7 grams diclofenac sodium 1 % topical gel 2 g EXT QID #0 grams 07/26/21 (Voltaren Arthritis Pain) fluticasone 100 mcg-salmeterol 50 1 inh inhalation BID #60 ea 07/26/21 mcg/dose blistr powdr for inhalation (Advair Diskus) furosemide 40 mg tablet (Lasix) 40 mg PO BID #180 tabs 01/13/22 clorazepate dipotassium 7.5 mg 7.5 mg PO BID PRN anxiety #60 tabs 04/22/22 tablet oxycodone 5 mg tablet 5 mg PO BID PRN pain #40 tabs 06/17/22 apixaban 2.5 mg tablet 2.5 mg PO BID #180 tabs 06/30/22 cetirizine 10 mg tablet (Zyrtec) 10 mg PO DAILY PRN allergy 06/30/22 symptoms #90 tabs levothyroxine 50 mcg tablet 50 mcg PO DAILYBB #90 tabs 06/30/22 (Synthroid) montelukast 10 mg tablet 10 mg PO QPM #90 tabs 06/30/22 (Singulair) potassium chloride 10 mEq 10 meq PO BID #28 tabs 06/30/22 tablet,extended release (Klor-Con) pramipexole 0.75 mg tablet 0.75 mg PO DAILY #90 tabs 06/30/22 Results & Data (ED) Vital Signs Vital Signs - 24 hr 07/06/22 08:56 07/06/22 09:38 07/06/22 08:50 Temperature Pulse Rate 82 Pulse Rate from SpO2 Sensor Respiratory Rate 24 Respiratory Effort / Characteristics Gasping/Agonal Grunting Labored Respiratory Pattern Grunting Blood Pressure 130/49 L 130/49 L Blood Pressure Mean 76 76 Blood Pressure Position Lying Pulse Oximetry 84 L 93 Oxygen Delivery Method Non-rebreather Non-rebreather Oxygen Flow Rate 15 15 Fraction of Inspired Oxygen 40 Sepsis Recent Fever Within 48 Hours No Sepsis New/Unexplained Change in Mental Status No Sepsis Action Taken by Nursing No Action Required End-Tidal CO2 24 07/06/22 08:50 07/06/22 08:59 07/06/22 08:59 Temperature Pulse Rate 118 H 95 H Pulse Rate from SpO2 Sensor Respiratory Rate 18 30 H Respiratory Effort / Characteristics Respiratory Pattern Blood Pressure 101/55 L Blood Pressure Mean 70 Blood Pressure Position Pulse Oximetry Oxygen Delivery Method Non-rebreather Mechanical Vent Mechanical Vent Oxygen Flow Rate 15 Fraction of Inspired Oxygen Sepsis Recent Fever Within 48 Hours Sepsis New/Unexplained Change in Mental Status Sepsis Action Taken by Nursing End-Tidal CO2 07/06/22 09:00 07/06/22 09:00 07/06/22 09:05 Temperature Pulse Rate 87 68 Pulse Rate from SpO2 Sensor Respiratory Rate 23 20 Respiratory Effort / Characteristics Respiratory Pattern Blood Pressure 89/53 L Blood Pressure Mean 65 Blood Pressure Position Pulse Oximetry 100 Oxygen Delivery Method Mechanical Vent Mechanical Vent Mechanical Vent Oxygen Flow Rate Fraction of Inspired Oxygen Sepsis Recent Fever Within 48 Hours Sepsis New/Unexplained Change in Mental Status Sepsis Action Taken by Nursing End-Tidal CO2 07/06/22 09:05 07/06/22 09:10 07/06/22 09:36 Temperature Pulse Rate 60 Pulse Rate from SpO2 Sensor Respiratory Rate 20 Respiratory Effort / Characteristics Respiratory Pattern Blood Pressure 104/55 L 147/77 H Blood Pressure Mean 71 100 Blood Pressure Position Pulse Oximetry Oxygen Delivery Method Mechanical Vent Mechanical Vent Mechanical Vent Oxygen Flow Rate Fraction of Inspired Oxygen Sepsis Recent Fever Within 48 Hours Sepsis New/Unexplained Change in Mental Status Sepsis Action Taken by Nursing End-Tidal CO2 07/06/22 09:36 07/06/22 09:40 07/06/22 09:50 Temperature 28.2 C L 28.3 C L 28.5 C L Pulse Rate 75 78 73 Pulse Rate from SpO2 Sensor 75 73 82 Respiratory Rate 18 21 19 Respiratory Effort / Characteristics Respiratory Pattern Blood Pressure Blood Pressure Mean Blood Pressure Position Pulse Oximetry 99 94 98 Oxygen Delivery Method Mechanical Vent Mechanical Vent Mechanical Vent Oxygen Flow Rate Fraction of Inspired Oxygen Sepsis Recent Fever Within 48 Hours Sepsis New/Unexplained Change in Mental Status Sepsis Action Taken by Nursing End-Tidal CO2 26 13 25 07/06/22 09:51 07/06/22 09:51 07/06/22 10:00 Temperature 28.5 C L 28.7 C L Pulse Rate 83 Pulse Rate from SpO2 Sensor 83 83 Respiratory Rate 22 24 Respiratory Effort / Characteristics Respiratory Pattern Blood Pressure 121/74 Blood Pressure Mean 89 Blood Pressure Position Pulse Oximetry 98 100 Oxygen Delivery Method Mechanical Vent Mechanical Vent Mechanical Vent Oxygen Flow Rate Fraction of Inspired Oxygen Sepsis Recent Fever Within 48 Hours Sepsis New/Unexplained Change in Mental Status Sepsis Action Taken by Nursing End-Tidal CO2 27 21 07/06/22 10:10 07/06/22 10:15 07/06/22 10:15 Temperature 29.0 C L 29.1 C L Pulse Rate 83 Pulse Rate from SpO2 Sensor 79 74 Respiratory Rate 19 18 Respiratory Effort / Characteristics Respiratory Pattern Blood Pressure 152/121 H Blood Pressure Mean 131 Blood Pressure Position Pulse Oximetry 100 100 Oxygen Delivery Method Mechanical Vent Mechanical Vent Mechanical Vent Oxygen Flow Rate Fraction of Inspired Oxygen Sepsis Recent Fever Within 48 Hours Sepsis New/Unexplained Change in Mental Status Sepsis Action Taken by Nursing End-Tidal CO2 27 28 07/06/22 10:20 07/06/22 10:30 07/06/22 10:40 Temperature 29.3 C L 29.5 C L 29.8 C L Pulse Rate 96 H 88 92 H Pulse Rate from SpO2 Sensor 73 84 85 Respiratory Rate 22 19 23 Respiratory Effort / Characteristics Respiratory Pattern Blood Pressure Blood Pressure Mean Blood Pressure Position Pulse Oximetry 94 99 98 Oxygen Delivery Method Mechanical Vent Mechanical Vent Mechanical Vent Oxygen Flow Rate Fraction of Inspired Oxygen Sepsis Recent Fever Within 48 Hours Sepsis New/Unexplained Change in Mental Status Sepsis Action Taken by Nursing End-Tidal CO2 29 29 27 07/06/22 10:45 07/06/22 10:45 07/06/22 10:50 Temperature 29.9 C L 30.1 C L Pulse Rate 96 H 90 Pulse Rate from SpO2 Sensor 83 85 Respiratory Rate 22 24 Respiratory Effort / Characteristics Respiratory Pattern Blood Pressure 134/86 Blood Pressure Mean 102 Blood Pressure Position Pulse Oximetry 100 100 Oxygen Delivery Method Mechanical Vent Mechanical Vent Mechanical Vent Oxygen Flow Rate Fraction of Inspired Oxygen Sepsis Recent Fever Within 48 Hours Sepsis New/Unexplained Change in Mental Status Sepsis Action Taken by Nursing End-Tidal CO2 27 24 07/06/22 11:00 07/06/22 11:01 07/06/22 11:01 Temperature 30.3 C L 30.4 C L Pulse Rate 102 H 95 H Pulse Rate from SpO2 Sensor 83 79 Respiratory Rate 23 24 Respiratory Effort / Characteristics Respiratory Pattern Blood Pressure 86/68 L Blood Pressure Mean 74 Blood Pressure Position Pulse Oximetry 97 100 Oxygen Delivery Method Mechanical Vent Mechanical Vent Mechanical Vent Oxygen Flow Rate Fraction of Inspired Oxygen Sepsis Recent Fever Within 48 Hours Sepsis New/Unexplained Change in Mental Status Sepsis Action Taken by Nursing End-Tidal CO2 26 28 07/06/22 11:28 07/06/22 11:30 07/06/22 11:31 Temperature 31.2 C L Pulse Rate 97 H 105 H Pulse Rate from SpO2 Sensor 98 H 102 H Respiratory Rate 22 23 17 Respiratory Effort / Characteristics Respiratory Pattern Blood Pressure 121/97 Blood Pressure Mean 105 Blood Pressure Position Pulse Oximetry 100 100 Oxygen Delivery Method Mechanical Vent Mechanical Vent Oxygen Flow Rate Fraction of Inspired Oxygen Sepsis Recent Fever Within 48 Hours Sepsis New/Unexplained Change in Mental Status Sepsis Action Taken by Nursing End-Tidal CO2 30 29 30 07/06/22 11:31 07/06/22 11:40 07/06/22 11:46 Temperature 31.4 C L 31.5 C L Pulse Rate 103 H 96 H Pulse Rate from SpO2 Sensor 103 H 99 H Respiratory Rate 19 25 H Respiratory Effort / Characteristics Respiratory Pattern Blood Pressure 121/97 Blood Pressure Mean 105 Blood Pressure Position Pulse Oximetry 100 100 Oxygen Delivery Method Oxymask Oxygen Flow Rate Fraction of Inspired Oxygen Sepsis Recent Fever Within 48 Hours Sepsis New/Unexplained Change in Mental Status Sepsis Action Taken by Nursing End-Tidal CO2 27 07/06/22 11:46 07/06/22 11:50 07/06/22 12:00 Temperature 31.6 C L 31.8 C L Pulse Rate 103 H 99 H Pulse Rate from SpO2 Sensor 107 H 106 H Respiratory Rate 21 21 Respiratory Effort / Characteristics Respiratory Pattern Blood Pressure 141/68 H Blood Pressure Mean 92 Blood Pressure Position Pulse Oximetry 100 100 Oxygen Delivery Method Oxymask Oxymask Oxygen Flow Rate Fraction of Inspired Oxygen Sepsis Recent Fever Within 48 Hours Sepsis New/Unexplained Change in Mental Status Sepsis Action Taken by Nursing End-Tidal CO2 07/06/22 12:10 Temperature 32.0 C L Pulse Rate 90 Pulse Rate from SpO2 Sensor 100 H Respiratory Rate 21 Respiratory Effort / Characteristics Respiratory Pattern Blood Pressure Blood Pressure Mean Blood Pressure Position Pulse Oximetry 100 Oxygen Delivery Method Oxymask Oxygen Flow Rate Fraction of Inspired Oxygen Sepsis Recent Fever Within 48 Hours Sepsis New/Unexplained Change in Mental Status Sepsis Action Taken by Nursing End-Tidal CO2 Home Medications Current Medication List: was personally reviewed by me Laboratory Data Attestation: I reviewed the patient's lab results. 07/06/22 08:57 07/06/22 08:57 Lab Results 07/06/22 07/06/22 07/06/22 Range/Units 08:55 08:57 08:57 WBC 15.38 H (4.8-10.8) K/ul RBC 3.85 L (3.93-5.22) M/uL Hgb 12.1 (12.0-16.0) g/dl POC Hgb (12.0-16.0) g/dl Hct 35.4 (34.1-44.9) % POC Hct (37-47) % MCV 91.9 (80.0-100.0) fL MCH 31.4 (25.0-34.0) pg MCHC 34.2 (32.0-36.0) g/dL RDW Std Deviation 42.2 (36.4-46.3) fL RDW Coeff of Leandro 12.6 (11.5-14.5) % Plt Count 226 (130-400) K/uL MPV 9.0 L (9.4-12.3) fL Immature Gran % (Auto) 1.6 % Neut % (Auto) 60.4 % Lymph % (Auto) 26.7 % [place] % (Auto) 5.7 % Eos % (Auto) 4.9 % Baso % (Auto) 0.7 % Neut # (Auto) 9.31 H (1.4-6.5) K/uL Lymph # (Auto) 4.11 H (1.2-3.4) K/uL [place] # (Auto) 0.87 H (0.24-0.82) K/uL Eos # (Auto) 0.75 H (0-0.50) K/uL Baso # (Auto) 0.10 (0-0.2) K/uL Immature Gran # (Auto) 0.24 H (0.00-0.02) K/uL PT 11.9 (9.0-12.0) Seconds INR 1.1 (0.9-1.1) APTT 25.6 (21.0-31.0) Seconds PTT Ratio 0.9 POC Sodium (135-144) mmol/L Sodium (136-145) mmol/L POC Potassium (3.3-5.0) mmol/L Potassium (3.5-5.1) mmol/L POC Chloride (101-112) mmol/L Chloride (98-107) mmol/L Carbon Dioxide (21-32) mmol/L POC Total CO2 (24-31) mmol/L Anion Gap (3-11) POC Anion Gap (16-25) mmol/L POC BUN (7-18) mg/dl BUN (6-23) mg/dl Creatinine (0.6-1.2) mg/dl POC Creatinine (0.6-1.3) mg/dl Est Cr Clr Drug Dosing Est GFR ( Amer) ml/min Est GFR (Non-Af Amer) ml/min BUN/Creatinine Ratio (10-20) Glucose (70-99(Fasting)) mg/dl POC Glucose 166 H (70-99) mg/dl POC Glucose (other) (70-99) mg/dl Lactate (0.4-2.0) mmol/L Calcium (8.5-10.1) mg/dl POC Ioniz Calcium Cheko (1.12-1.32) mmol/l Magnesium (1.7-2.4) mg/dl Total Bilirubin (0.2-1.0) mg/dl AST (13-39) U/L ALT (7-52) U/L Alkaline Phosphatase (34-104) U/L Total Creatine Kinase (26-192) U/L Troponin I High Sens (0-14) pg/ml Total Protein (6.0-8.3) gm/dl Albumin (3.4-5.0) gm/dl Globulin (2.5-4.0) gm/dl Albumin/Globulin Ratio (0.9-2) Procalcitonin (0-0.5) ng/ml TSH (0.300-4.500) uIu/ml Urine Color Urine Appearance (Clear) Urine pH (4.5-7.5) Ur Specific [place] (1.000-1.030) Urine Protein (Negative) Urine Glucose (UA) (Negative) Urine Ketones (Negative) Urine Blood (Negative) Urine Nitrite (Negative) Urine Bilirubin (Negative) Urine Urobilinogen (Negative) Ur Leukocyte Esterase (Negative) Urine WBC (Auto) (0-5) /hpf Urine RBC (Auto) (0-4) /hpf U Hyaline Cast (Auto) (0-5) /lpf U Epithel Cells (Auto) (0-5) /lpf Urine Bacteria (Auto) (Negative) SARS-CoV-2 (PCR) (Negative) Influenza Type A (PCR) (Neg) Influenza Type B (PCR) (Neg) RSV (RT-PCR) (Neg) 07/06/22 07/06/22 07/06/22 Range/Units 08:57 08:57 09:00 WBC (4.8-10.8) K/ul RBC (3.93-5.22) M/uL Hgb (12.0-16.0) g/dl POC Hgb 11.9 L (12.0-16.0) g/dl Hct (34.1-44.9) % POC Hct 35 L (37-47) % MCV (80.0-100.0) fL MCH (25.0-34.0) pg MCHC (32.0-36.0) g/dL RDW Std Deviation (36.4-46.3) fL RDW Coeff of Leandro (11.5-14.5) % Plt Count (130-400) K/uL MPV (9.4-12.3) fL Immature Gran % (Auto) % Neut % (Auto) % Lymph % (Auto) % [place] % (Auto) % Eos % (Auto) % Baso % (Auto) % Neut # (Auto) (1.4-6.5) K/uL Lymph # (Auto) (1.2-3.4) K/uL [place] # (Auto) (0.24-0.82) K/uL Eos # (Auto) (0-0.50) K/uL Baso # (Auto) (0-0.2) K/uL Immature Gran # (Auto) (0.00-0.02) K/uL PT (9.0-12.0) Seconds INR (0.9-1.1) APTT (21.0-31.0) Seconds PTT Ratio POC Sodium 137 (135-144) mmol/L Sodium 138 (136-145) mmol/L POC Potassium 4.0 (3.3-5.0) mmol/L Potassium 4.1 (3.5-5.1) mmol/L POC Chloride 104 (101-112) mmol/L Chloride 104 (98-107) mmol/L Carbon Dioxide 19 L (21-32) mmol/L POC Total CO2 22 L (24-31) mmol/L Anion Gap 15 H (3-11) POC Anion Gap 16.0 (16-25) mmol/L POC BUN 18 (7-18) mg/dl BUN 17 (6-23) mg/dl Creatinine 0.90 (0.6-1.2) mg/dl POC Creatinine 0.9 (0.6-1.3) mg/dl Est Cr Clr Drug Dosing Not Reportable Est GFR ( Amer) 65.7 ml/min Est GFR (Non-Af Amer) 56.7 ml/min BUN/Creatinine Ratio 18.9 (10-20) Glucose 167 H (70-99(Fasting)) mg/dl POC Glucose (70-99) mg/dl POC Glucose (other) 162 H (70-99) mg/dl Lactate (0.4-2.0) mmol/L Calcium 9.4 (8.5-10.1) mg/dl POC Ioniz Calcium [place] 1.12 (1.12-1.32) mmol/l Magnesium 2.2 (1.7-2.4) mg/dl Total Bilirubin 0.4 (0.2-1.0) mg/dl AST 24 (13-39) U/L ALT 16 (7-52) U/L Alkaline Phosphatase 61 (34-104) U/L Total Creatine Kinase 519 H (26-192) U/L Troponin I High Sens 160.5 H* (0-14) pg/ml Total Protein 6.7 (6.0-8.3) gm/dl Albumin 3.9 (3.4-5.0) gm/dl Globulin 2.8 (2.5-4.0) gm/dl Albumin/Globulin Ratio 1.4 (0.9-2) Procalcitonin (0-0.5) ng/ml TSH (0.300-4.500) uIu/ml Urine Color Urine Appearance (Clear) Urine pH (4.5-7.5) Ur Specific [place] (1.000-1.030) Urine Protein (Negative) Urine Glucose (UA) (Negative) Urine Ketones (Negative) Urine Blood (Negative) Urine Nitrite (Negative) Urine Bilirubin (Negative) Urine Urobilinogen (Negative) Ur Leukocyte Esterase (Negative) Urine WBC (Auto) (0-5) /hpf Urine RBC (Auto) (0-4) /hpf U Hyaline Cast (Auto) (0-5) /lpf U Epithel Cells (Auto) (0-5) /lpf Urine Bacteria (Auto) (Negative) SARS-CoV-2 (PCR) (Negative) Influenza Type A (PCR) (Neg) Influenza Type B (PCR) (Neg) RSV (RT-PCR) (Neg) 07/06/22 07/06/22 07/06/22 Range/Units 09:45 09:45 10:46 WBC (4.8-10.8) K/ul RBC (3.93-5.22) M/uL Hgb (12.0-16.0) g/dl POC Hgb (12.0-16.0) g/dl Hct (34.1-44.9) % POC Hct (37-47) % MCV (80.0-100.0) fL MCH (25.0-34.0) pg MCHC (32.0-36.0) g/dL RDW Std Deviation (36.4-46.3) fL RDW Coeff of Leandro (11.5-14.5) % Plt Count (130-400) K/uL MPV (9.4-12.3) fL Immature Gran % (Auto) % Neut % (Auto) % Lymph % (Auto) % [place] % (Auto) % Eos % (Auto) % Baso % (Auto) % Neut # (Auto) (1.4-6.5) K/uL Lymph # (Auto) (1.2-3.4) K/uL [place] # (Auto) (0.24-0.82) K/uL Eos # (Auto) (0-0.50) K/uL Baso # (Auto) (0-0.2) K/uL Immature Gran # (Auto) (0.00-0.02) K/uL PT (9.0-12.0) Seconds INR (0.9-1.1) APTT (21.0-31.0) Seconds PTT Ratio POC Sodium (135-144) mmol/L Sodium (136-145) mmol/L POC Potassium (3.3-5.0) mmol/L Potassium (3.5-5.1) mmol/L POC Chloride (101-112) mmol/L Chloride (98-107) mmol/L Carbon Dioxide (21-32) mmol/L POC Total CO2 (24-31) mmol/L Anion Gap (3-11) POC Anion Gap (16-25) mmol/L POC BUN (7-18) mg/dl BUN (6-23) mg/dl Creatinine (0.6-1.2) mg/dl POC Creatinine (0.6-1.3) mg/dl Est Cr Clr Drug Dosing Est GFR ( Amer) ml/min Est GFR (Non-Af Amer) ml/min BUN/Creatinine Ratio (10-20) Glucose (70-99(Fasting)) mg/dl POC Glucose (70-99) mg/dl POC Glucose (other) (70-99) mg/dl Lactate 4.3 H* (0.4-2.0) mmol/L Calcium (8.5-10.1) mg/dl POC Ioniz Calcium [place] (1.12-1.32) mmol/l Magnesium (1.7-2.4) mg/dl Total Bilirubin (0.2-1.0) mg/dl AST (13-39) U/L ALT (7-52) U/L Alkaline Phosphatase (34-104) U/L Total Creatine Kinase (26-192) U/L Troponin I High Sens (0-14) pg/ml Total Protein (6.0-8.3) gm/dl Albumin (3.4-5.0) gm/dl Globulin (2.5-4.0) gm/dl Albumin/Globulin Ratio (0.9-2) Procalcitonin (0-0.5) ng/ml TSH (0.300-4.500) uIu/ml Urine Color Yellow Urine Appearance Clear (Clear) Urine pH 5.0 (4.5-7.5) Ur Specific [place] 1.010 (1.000-1.030) Urine Protein 2+ H (Negative) Urine Glucose (UA) Negative (Negative) Urine Ketones Negative (Negative) Urine Blood Trace H (Negative) Urine Nitrite Negative (Negative) Urine Bilirubin Negative (Negative) Urine Urobilinogen Negative (Negative) Ur Leukocyte Esterase Negative (Negative) Urine WBC (Auto) 1-5 (0-5) /hpf Urine RBC (Auto) 0-4 (0-4) /hpf U Hyaline Cast (Auto) 0 (0-5) /lpf U Epithel Cells (Auto) 10-20 H (0-5) /lpf Urine Bacteria (Auto) 4+ H (Negative) SARS-CoV-2 (PCR) NEGATIVE (Negative) Influenza Type A (PCR) Negative (Neg) Influenza Type B (PCR) Negative (Neg) RSV (RT-PCR) Negative (Neg) 07/06/22 07/06/22 07/06/22 Range/Units 11:52 11:52 11:52 WBC (4.8-10.8) K/ul RBC (3.93-5.22) M/uL Hgb (12.0-16.0) g/dl POC Hgb (12.0-16.0) g/dl Hct (34.1-44.9) % POC Hct (37-47) % MCV (80.0-100.0) fL MCH (25.0-34.0) pg MCHC (32.0-36.0) g/dL RDW Std Deviation (36.4-46.3) fL RDW Coeff of Leandro (11.5-14.5) % Plt Count (130-400) K/uL MPV (9.4-12.3) fL Immature Gran % (Auto) % Neut % (Auto) % Lymph % (Auto) % [place] % (Auto) % Eos % (Auto) % Baso % (Auto) % Neut # (Auto) (1.4-6.5) K/uL Lymph # (Auto) (1.2-3.4) K/uL [place] # (Auto) (0.24-0.82) K/uL Eos # (Auto) (0-0.50) K/uL Baso # (Auto) (0-0.2) K/uL Immature Gran # (Auto) (0.00-0.02) K/uL PT (9.0-12.0) Seconds INR (0.9-1.1) APTT (21.0-31.0) Seconds PTT Ratio POC Sodium (135-144) mmol/L Sodium (136-145) mmol/L POC Potassium (3.3-5.0) mmol/L Potassium (3.5-5.1) mmol/L POC Chloride (101-112) mmol/L Chloride (98-107) mmol/L Carbon Dioxide (21-32) mmol/L POC Total CO2 (24-31) mmol/L Anion Gap (3-11) POC Anion Gap (16-25) mmol/L POC BUN (7-18) mg/dl BUN (6-23) mg/dl Creatinine (0.6-1.2) mg/dl POC Creatinine (0.6-1.3) mg/dl Est Cr Clr Drug Dosing Est GFR ( Amer) ml/min Est GFR (Non-Af Amer) ml/min BUN/Creatinine Ratio (10-20) Glucose (70-99(Fasting)) mg/dl POC Glucose (70-99) mg/dl POC Glucose (other) (70-99) mg/dl Lactate (0.4-2.0) mmol/L Calcium (8.5-10.1) mg/dl POC Ioniz Calcium Cheko (1.12-1.32) mmol/l Magnesium (1.7-2.4) mg/dl Total Bilirubin (0.2-1.0) mg/dl AST (13-39) U/L ALT (7-52) U/L Alkaline Phosphatase (34-104) U/L Total Creatine Kinase (26-192) U/L Troponin I High Sens 222.5 H* D (0-14) pg/ml Total Protein (6.0-8.3) gm/dl Albumin (3.4-5.0) gm/dl Globulin (2.5-4.0) gm/dl Albumin/Globulin Ratio (0.9-2) Procalcitonin < 0.05 (0-0.5) ng/ml TSH 3.500 (0.300-4.500) uIu/ml Urine Color Urine Appearance (Clear) Urine pH (4.5-7.5) Ur Specific [place] (1.000-1.030) Urine Protein (Negative) Urine Glucose (UA) (Negative) Urine Ketones (Negative) Urine Blood (Negative) Urine Nitrite (Negative) Urine Bilirubin (Negative) Urine Urobilinogen (Negative) Ur Leukocyte Esterase (Negative) Urine WBC (Auto) (0-5) /hpf Urine RBC (Auto) (0-4) /hpf U Hyaline Cast (Auto) (0-5) /lpf U Epithel Cells (Auto) (0-5) /lpf Urine Bacteria (Auto) (Negative) SARS-CoV-2 (PCR) (Negative) Influenza Type A (PCR) (Neg) Influenza Type B (PCR) (Neg) RSV (RT-PCR) (Neg) 07/06/22 Range/Units 11:52 WBC (4.8-10.8) K/ul RBC (3.93-5.22) M/uL Hgb (12.0-16.0) g/dl POC Hgb (12.0-16.0) g/dl Hct (34.1-44.9) % POC Hct (37-47) % MCV (80.0-100.0) fL MCH (25.0-34.0) pg MCHC (32.0-36.0) g/dL RDW Std Deviation (36.4-46.3) fL RDW Coeff of Leandro (11.5-14.5) % Plt Count (130-400) K/uL MPV (9.4-12.3) fL Immature Gran % (Auto) % Neut % (Auto) % Lymph % (Auto) % [place] % (Auto) % Eos % (Auto) % Baso % (Auto) % Neut # (Auto) (1.4-6.5) K/uL Lymph # (Auto) (1.2-3.4) K/uL [place] # (Auto) (0.24-0.82) K/uL Eos # (Auto) (0-0.50) K/uL Baso # (Auto) (0-0.2) K/uL Immature Gran # (Auto) (0.00-0.02) K/uL PT (9.0-12.0) Seconds INR (0.9-1.1) APTT (21.0-31.0) Seconds PTT Ratio POC Sodium (135-144) mmol/L Sodium (136-145) mmol/L POC Potassium (3.3-5.0) mmol/L Potassium (3.5-5.1) mmol/L POC Chloride (101-112) mmol/L Chloride (98-107) mmol/L Carbon Dioxide (21-32) mmol/L POC Total CO2 (24-31) mmol/L Anion Gap (3-11) POC Anion Gap (16-25) mmol/L POC BUN (7-18) mg/dl BUN (6-23) mg/dl Creatinine (0.6-1.2) mg/dl POC Creatinine (0.6-1.3) mg/dl Est Cr Clr Drug Dosing Est GFR ( Amer) ml/min Est GFR (Non-Af Amer) ml/min BUN/Creatinine Ratio (10-20) Glucose (70-99(Fasting)) mg/dl POC Glucose (70-99) mg/dl POC Glucose (other) (70-99) mg/dl Lactate (0.4-2.0) mmol/L Calcium (8.5-10.1) mg/dl POC Ioniz Calcium Cheko (1.12-1.32) mmol/l Magnesium (1.7-2.4) mg/dl Total Bilirubin (0.2-1.0) mg/dl AST (13-39) U/L ALT (7-52) U/L Alkaline Phosphatase (34-104) U/L Total Creatine Kinase 953 H (26-192) U/L Troponin I High Sens (0-14) pg/ml Total Protein (6.0-8.3) gm/dl Albumin (3.4-5.0) gm/dl Globulin (2.5-4.0) gm/dl Albumin/Globulin Ratio (0.9-2) Procalcitonin (0-0.5) ng/ml TSH (0.300-4.500) uIu/ml Urine Color Urine Appearance (Clear) Urine pH (4.5-7.5) Ur Specific [place] (1.000-1.030) Urine Protein (Negative) Urine Glucose (UA) (Negative) Urine Ketones (Negative) Urine Blood (Negative) Urine Nitrite (Negative) Urine Bilirubin (Negative) Urine Urobilinogen (Negative) Ur Leukocyte Esterase (Negative) Urine WBC (Auto) (0-5) /hpf Urine RBC (Auto) (0-4) /hpf U Hyaline Cast (Auto) (0-5) /lpf U Epithel Cells (Auto) (0-5) /lpf Urine Bacteria (Auto) (Negative) SARS-CoV-2 (PCR) (Negative) Influenza Type A (PCR) (Neg) Influenza Type B (PCR) (Neg) RSV (RT-PCR) (Neg) Administered Medications Lactated Ringer's (Lr) 1,000 mls @ 80 mls/hr IV .[id number] AUGUSTINA Stop: 07/07/22 12:29 Last Admin: 07/06/22 12:50 Dose: 80 mls/hr Documented By: ROLA Discontinued Medications Sodium Chloride (Nss 1000ml) 1,000 mls @ 999 mls/hr IV .[id number] ONE Stop: 07/06/22 10:01 Last Infusion: 07/06/22 10:30 Dose: 0 mls/hr Documented By: Admin: 07/06/22 09:20 Dose: 999 mls/hr Documented By: JACOB Sodium Chloride (Nss 1000ml) 1,000 mls @ 125 mls/hr IV .Q8H STA Stop: 07/06/22 18:20 Last Infusion: 07/06/22 12:50 Dose: 0 mls/hr Documented By: Admin: 07/06/22 10:30 Dose: 125 mls/hr Documented By: JACOB Ioversol (Optiray 320 500ml) 120 ml IV ONCE ONE Stop: 07/06/22 09:25 Last Admin: 07/06/22 09:25 Dose: 120 ml Documented By: RUSLAN Ioversol (Optiray 350 100ml) 86 ml IV ONCE ONE Stop: 07/06/22 11:21 Last Admin: 07/06/22 11:23 Dose: 86 ml Documented By: HAYDEE Miscellaneous (Rapid Sequence Induction Bag) Confirm Administered Dose 1 each .ROUTE .STK-MED ONE Stop: 07/06/22 08:39 Last Admin: 07/06/22 10:02 Dose: 1 each Documented By: JACOB Imaging Data Radiologist's Impression: Chest X-Ray 07/06/22 08:46 XR chest 1V portable HISTORY: Intubation. neuro deficit, acute stroke suspected COMPARISON: Chest 07/22/2021. FINDINGS: Endotracheal tube appears to be located within the right mainstem bronchus and should be retracted by approximately 3 cm. Slightly rotated study. No pneumothorax. No pleural effusions. The cardiac silhouette remains mildly enlarged. There is mild central pulmonary vascular congestion without overt edema. Multiple left sided rib fractures which are slightly depressed. There is thickening along the left lateral pleural. IMPRESSION: 1. Endotracheal tube appears to be located within the right mainstem bronchus and should be retracted by approximately 3 cm. 2. Multiple acute and mildly depressed left-sided rib fractures. No pneumothorax. 3. This was discussed with Dr. Sheets at 9:55 AM on 07/06/2021. ACT 112: Negative or not required by law. Electronically signed by: Clyde Yan M.D. 07/06/2022 9:[address] 07/06/22 08:46 CT angio neck with con, CT head/brain wo con, CT angio head w con CLINICAL HISTORY: neuro deficit, acute stroke suspected TECHNIQUE: Contiguous axial CT images of the head were acquired from the base of the skull to the vertex without intravenous contrast administration. CT angiography of the head and neck was performed following intravenous administration of iodinated contrast. Coronal and sagittal MIPS were obtained from the axial data set and were submitted for review. Automated dose lowering techniques and/or adjustment according to patient size were utilized for this examination. All measurements were calculated based on NASCET criteria. CT DOSE: 1102.93 mGy.cm Comparison: Comparison is made to MRI brain 07/23/2021 FINDINGS: CT head: Areas of decreased attenuation are present in the periventricular and subcortical white matter bilaterally consistent with small vessel ischemic disease. Generalized cerebral atrophy with commensurate enlargement of the ventricles, sulci, and cisterns is also present. There is no acute intracranial hemorrhage or evidence of acute territorial infarction. No shift of the midline structures, mass effect, or extra-axial abnormalities are shown. Atherosclerotic calcifications are present in the intracranial segments of the internal carotid arteries. 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 Biapical scarring is seen. Endotracheal tube is noted. CTA Neck: The left common carotid artery shares common origin with the innominate artery. Atherosclerotic plaque is present in the aortic arch and at the origin of the great vessels. The common carotid, external carotid, cervical segments of the internal carotid arteries, and the cervical segments of the vertebral arteries are patent without hemodynamically significant stenosis. The left vertebral artery is dominant. CTA Head: The anterior and posterior cerebral circulations are patent. Atherosclerosis is noted in the proximal clinoid portion of the bilateral internal carotid arteries without hemodynamically significant stenosis. origin of the right CHEF CONCIERGE is noted. IMPRESSION: 1. No acute intracranial hemorrhage, evidence of acute territorial infarction, or other acute intracranial disease process. 2. No occlusion, hemodynamically significant stenosis, or dissection in the major cervical arteries. 3. No occlusion, hemodynamically significant stenosis, aneurysm, dissection, or arteriovenous malformation in the major intracranial arteries. Assessment of stenosis of the internal carotid arteries is based on NASCET criteria. ACT 112: Negative or not required by law. Electronically signed by: Rohan Martinez M.D. 07/06/2022 10:00 AM Head CTA 07/06/22 08:46 CT angio neck with con, CT head/brain wo con, CT angio head w con CLINICAL HISTORY: neuro deficit, acute stroke suspected TECHNIQUE: Contiguous axial CT images of the head were acquired from the base of the skull to the vertex without intravenous contrast administration. CT angiography of the head and neck was performed following intravenous administration of iodinated contrast. Coronal and sagittal MIPS were obtained from the axial data set and were submitted for review. Automated dose lowering techniques and/or adjustment according to patient size were utilized for this examination. All measurements were calculated based on NASCET criteria. CT DOSE: 1102.93 mGy.cm Comparison: Comparison is made to MRI brain 07/23/2021 FINDINGS: CT head: Areas of decreased attenuation are present in the periventricular and subcortical white matter bilaterally consistent with small vessel ischemic disease. Generalized cerebral atrophy with commensurate enlargement of the ventricles, sulci, and cisterns is also present. There is no acute intracranial hemorrhage or evidence of acute territorial infarction. No shift of the midline structures, mass effect, or extra-axial abnormalities are shown. Atherosclerotic calcifications are present in the intracranial segments of the internal carotid arteries. 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 Biapical scarring is seen. Endotracheal tube is noted. CTA Neck: The left common carotid artery shares common origin with the innominate artery. Atherosclerotic plaque is present in the aortic arch and at the origin of the great vessels. The common carotid, external carotid, cervical segments of the internal carotid arteries, and the cervical segments of the vertebral arteries are patent without hemodynamically significant stenosis. The left vertebral artery is dominant. CTA Head: The anterior and posterior cerebral circulations are patent. Atherosclerosis is noted in the proximal clinoid portion of the bilateral internal carotid arteries without hemodynamically significant stenosis. origin of the right CHEF CONCIERGE is noted. IMPRESSION: 1. No acute intracranial hemorrhage, evidence of acute territorial infarction, or other acute intracranial disease process. 2. No occlusion, hemodynamically significant stenosis, or dissection in the major cervical arteries. 3. No occlusion, hemodynamically significant stenosis, aneurysm, dissection, or arteriovenous malformation in the major intracranial arteries. Assessment of stenosis of the internal carotid arteries is based on NASCET criteria. ACT 112: Negative or not required by law. Electronically signed by: Rohan Martinez M.D. 07/06/2022 10:00 AM Neck CTA 07/06/22 08:46 CT angio neck with con, CT head/brain wo con, CT angio head w con CLINICAL HISTORY: neuro deficit, acute stroke suspected TECHNIQUE: Contiguous axial CT images of the head were acquired from the base of the skull to the vertex without intravenous contrast administration. CT angiography of the head and neck was performed following intravenous administration of iodinated contrast. Coronal and sagittal MIPS were obtained from the axial data set and were submitted for review. Automated dose lowering techniques and/or adjustment according to patient size were utilized for this examination. All measurements were calculated based on NASCET criteria. CT DOSE: 1102.93 mGy.cm Comparison: Comparison is made to MRI brain 07/23/2021 FINDINGS: CT head: Areas of decreased attenuation are present in the periventricular and subcortical white matter bilaterally consistent with small vessel ischemic disease. Generalized cerebral atrophy with commensurate enlargement of the ventricles, sulci, and cisterns is also present. There is no acute intracranial hemorrhage or evidence of acute territorial infarction. No shift of the midline structures, mass effect, or extra-axial abnormalities are shown. Atherosclero tic calcifications are present in the intracranial segments of the internal carotid arteries. 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 Biapical scarring is seen. Endotracheal tube is noted. CTA Neck: The left common carotid artery shares common origin with the innominate artery. Atherosclerotic plaque is present in the aortic arch and at the origin of the great vessels. The common carotid, external carotid, cervical segments of the internal carotid arteries, and the cervical segments of the vertebral arteries are patent without hemodynamically significant stenosis. The left vertebral artery is dominant. CTA Head: The anterior and posterior cerebral circulations are patent. Atherosclerosis is noted in the proximal clinoid portion of the bilateral internal carotid arteries without hemodynamically significant stenosis. origin of the right CHEF CONCIERGE is noted. IMPRESSION: 1. No acute intracranial hemorrhage, evidence of acute territorial infarction, or other acute intracranial disease process. 2. No occlusion, hemodynamically significant stenosis, or dissection in the major cervical arteries. 3. No occlusion, hemodynamically significant stenosis, aneurysm, dissection, or arteriovenous malformation in the major intracranial arteries. Assessment of stenosis of the internal carotid arteries is based on NASCET criteria. ACT 112: Negative or not required by law. Electronically signed by: Rohan Martinez M.D. 07/06/2022 10:00 AM Abdomen/Pelvis CT 07/06/22 10:19 CT abd pelvis IV con only CLINICAL HISTORY: fall, trauma TECHNIQUE: Helical axial images of the abdomen and pelvis were obtained and displayed. Automated dose lowering techniques and/or adjustment according to patient size were utilized for this exam. This exam was performed with intravenous contrast. COMPARISON: Comparison is made to CT abdomen pelvis 08/13/2020 FINDINGS: Lower chest: For findings above the diaphragm, please see CT chest performed same day. Liver: Unremarkable. No focal lesions are seen. Gallbladder and biliary tree: Patient is status post cholecystectomy. No intra- or extrahepatic biliary ductal dilation. Pancreas: Unremarkable, no focal lesions. Spleen: Unremarkable. Adrenals: Unremarkable. Kidneys and ureters: A right renal cyst is seen. Bladder: Toscano catheter is seen. Reproductive organs: Unremarkable. Bowel: Unremarkable. Lymph nodes Retroperitoneal: Unremarkable. Pelvic: Unremarkable. Mesenteric: Unremarkable. Peritoneum: Normal. Vessels: Atherosclerotic calcifications are seen. Abdominal wall: A right inguinal hernia contains fluid and part of a loop of bowel without evidence of obstruction. Bones: There is an age-indeterminate fracture of the right 11th rib. Partial visualization of a age-indeterminate left rib fractures. Degenerative changes are seen in the lumbar spine. Previously noted femur is not seen. This may have been artifactual. IMPRESSION: There is an age-indeterminate fracture of the right 11th rib. Subacute appearing left rib fractures are again seen. No acute intra-abdominal abnormality and in particular no evidence of traumatic injury to the abdominal organs. Additional findings are as above. ACT 112: Negative or not required by law. Electronically signed by: Rohan Martinez M.D. 07/06/2022 11:[address] 07/06/22 10:19 CT chest diagnostic w con CLINICAL HISTORY: fall, rib fractures, intubated TECHNIQUE: Multidetector row helical CT of the chest was performed with intravenous contrast. Coronal and sagittal reformations were obtained. Automated dose lowering techniques and/or adjustment according to patient size were utilized for this exam. CT DOSE: 1121.27 mGycm Comparison: Comparison is made to chest radiograph 07/06/2022 FINDINGS: Lungs and pleura: Endotracheal tube has been retracted and is in satisfactory position. Interstitial lung disease is seen and there may be a trace left pleural effusion. Heart and pericardium: Cardiomegaly is seen with biatrial enlargement. Vessels: Unremarkable. Mediastinum and issac: Prominent lymph nodes measure up to 11 mm. Chest wall and lower neck: Unremarkable. Abdomen: For findings below the diaphragm, please refer to CT of the abdomen dated the same. Bones: Left-sided rib fractures are seen involving the lateral aspect of the fourth, fifth, sixth, seventh, eighth, and ninth ribs, many of these fractures appear subacute with irregular bony bridging. Old healed fracture of the sternum is seen. Multilevel degenerative changes are seen. IMPRESSION: 1. Multiple left-sided rib fractures which appear to be subacute. The eighth and ninth rib fractures are age indeterminate. 2. Interstitial lung disease is noted. Cardiomegaly is seen. ACT 112: Negative or not required by law. Electronically signed by: Rohan Martinez M.D. 07/06/2022 11:43 AM Blood Pressure Blood Pressure Findings: Normal blood pressure Blood Pressure Disposition: did not require urgent referral Head Trauma GCS Score: 3 (On arrival) Additional Comments: Postextubation 11 Discharge Plan Visit Data Chief Complaint: Unresponsive Stated Complaint: FALL, UNRESP. ED Provider: Ele Sheets Discharge Problem: Unresponsive, Demand ischemia, Rhabdomyolysis, Ribs, multiple fractures, Hypothermia Patient Disposition: Admitted As Inpatient Discharge Instructions Interventions: ED Discharge Assessment Last Done: 07/06/22 14:49 : Rhabdomyolysis Qualifiers: Rhabdomyolysis type: traumatic Encounter type: initial encounter Qualified Code(s): T79.6XXA - Traumatic ischemia of muscle, initial encounter Hypothermia Qualifiers: Encounter type: initial encounter Qualified Code(s): T68.XXXA - Hypothermia, initial encounter
[2022-07-06] MEDS ORDERED: ALBUTEROL HFA 8 GM INHALER INH PRN (15:30)
[2022-07-06 17:01] LABS: Albumin Globulin Ratio 1.4 (0.9-2); Albumin Level 3.2 gm/dl (3.4-5.0); BUN Creatinine Ratio 24.2 (10-20); Bilirubin,Total 0.6 mg/dl (0.2-1.0); Calcium 8.3 mg/dl (8.5-10.1); Est GFR (African American) 90.8 ml/min; Est GFR (Non-African American) 78.3 ml/min; Globulin 2.3 gm/dl (2.5-4.0); Potassium 4.1 mmol/L (3.5-5.1); Total Protein 5.5 gm/dl (6.0-8.3)
[2022-07-06 18:14] LABS: Troponin I High Sensitivity 332.4 pg/ml (0-14)
--- NOTE | 2022-07-06 20:36 | XRay Report ---
XR femur RT 2V routine CLINICAL HISTORY: found down COMPARISON: Pelvis radiograph July 22, 2021. Pelvis and hip radiographs August 13, 2020. FINDINGS: No acute fracture within the right femur is present. There is no osseous lesion. Right kne e arthroplasty is intact. Contrast and a Toscano balloon within the bladder are incidentally noted. IMPRESSION: No acute fracture within the right femur. ACT 112: Negative or not required by law. Electronically signed by: Srinivas Vines M.D. 07/06/2022 8:35 PM
[2022-07-06 20:38] LABS: Amphetamines+Metham, Urine Neg (Neg); Barbiturates, Urine Neg (Neg); Benzodiazepine, Urine Pos (Neg); Cocaine, Urine Neg (Neg); MDMA (Ecstacy), Urine Neg (Neg); Methadone, Urine Neg (Neg); Opiate, Urine Neg (Neg); Phencyclidine, Urine Neg (Neg)
--- NOTE | 2022-07-06 20:47 | XRay Report ---
XR tibia fibula RT 2V CLINICAL HISTORY: found down COMPARISON: None FINDINGS: Right knee arthroplasty is intact. There is no periprosthetic fracture. There is no right knee joint effusion. No acute fracture within the right tibia or fibula is noted. There is no osseous lesion. IMPRESSION: No acute fracture within the right tibia or fibula. ACT 112: Negative or not required by law. Electronically signed by: Srinivas Vines M.D. 07/06/2022 8:45 PM
--- NOTE | 2022-07-06 20:55 | XRay Report ---
XR wrist RT 2V CLINICAL HISTORY: found down COMPARISON: None FINDINGS: No acute fracture within the right wrist is noted. A tiny well-corticated ossicle along th e dorsal wrist on lateral projection is chronic. Moderate degenerative changes are noted within multi ple articulations. IMPRESSION: No acute fracture or dislocation within the right wrist. ACT 112: Negative or not required by law. Electronically signed by: Srinivas Vines M.D. 07/06/2022 8:53 PM
--- NOTE | 2022-07-06 20:57 | XRay Report ---
XR wrist LT 2V CLINICAL HISTORY: found down COMPARISON: None FINDINGS: An IV is incidentally noted. There is no acute fracture within the left wrist. 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 Wrist and forearm soft tissue swellin g is noted. IMPRESSION: 1. No fracture or dislocation within the left wrist. 2. Left wrist and forearm soft tissue swelling. ACT 112: Negative or not required by law. Electronically signed by: Srinivas Vines M.D. 07/06/2022 8:56 PM
--- NOTE | 2022-07-06 21:34 | XRay Report ---
XR femur LT 2V routine CLINICAL HISTORY: found down COMPARISON: MRI of the left hip August 14, 2020. Chest radiograph July 22, 2021. FINDINGS: No fracture within the left femur is present. Left knee arthroplasty is intact. There is n o periprosthetic fracture. Trace left knee joint effusion is present. IMPRESSION: No acute fracture within the left femur. ACT 112: Negative or not required by law. Electronically signed by: Srinivas Vines M.D. 07/06/2022 9:33 PM
--- NOTE | 2022-07-06 21:35 | XRay Report ---
XR tibia fibula LT 2V CLINICAL HISTORY: found down COMPARISON: Left ankle radiographs July 22, 2021. FINDINGS: Alignment of the total left knee arthroplasty is anatomic. No acute fracture within the le ft tibia or fibula is noted. Old distal left fibular fracture is noted. Talar dome is intact. IMPRESSION: No acute fracture within the left tibia or fibula. ACT 112: Negative or not required by law. Electronically signed by: Srinivas Vines M.D. 07/06/2022 9:34 PM
--- NOTE | 2022-07-06 21:43 | XRay Report ---
XR foot LT 2V CLINICAL HISTORY: found down COMPARISON: Left ankle radiographs July 22, 2021. FINDINGS: Alignment of the left foot is anatomic. Tarsometatarsal joints are intact. No acute fractu res are identified. Posterior and plantar calcaneal spurring is noted. Moderate osteophytosis noted w ithin multiple articulations, greatest within the first metatarsophalangeal joint. IMPRESSION: No acute fracture or dislocation within the left foot. ACT 112: Negative or not required by law. Electronically signed by: Srinivas Vines M.D. 07/06/2022 9:41 PM
--- NOTE | 2022-07-06 21:44 | XRay Report ---
XR foot RT 2V CLINICAL HISTORY: found down COMPARISON: None FINDINGS: Alignment of the right foot is anatomic. Tarsometatarsal joints are intact. No acute fract ure is identified. 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 Posterior and plantar calcaneal spurring is present. IMPRESSION: No fracture or dislocation within the right foot. ACT 112: Negative or not required by law. Electronically signed by: Srinivas Vines M.D. 07/06/2022 9:43 PM
[2022-07-06] MEDS ORDERED: ACETAMINOPHEN 500 MG TAB PO PRN (22:20)
[2022-07-06] MEDS ORDERED: OLANZapine 10 MG/2.1 ML SDV IM STA (22:20)
[2022-07-06 23:29] LABS: Calcium 8.1 mg/dl (8.5-10.1); Creatinine Clr Calc Pharmacy 47.7 ml/min; Est GFR (African American) 86.1 ml/min; Est GFR (Non-African American) 74.3 ml/min; Potassium 4.1 mmol/L (3.5-5.1)
--- NOTE | 2022-07-06 23:40 | Magnetic Resonance Report ---
MRI OF THE BRAIN WITHOUT CONTRAST CLINICAL HISTORY: Stroke work up. Confusion. COMPARISON STUDY: MRI of the brain July 23, [address] and CTA of the head performed earlier today. TECHNIQUE: Utilizing a 1.5 Arabella magnet and dedicated coil, multiplanar, multiecho imaging of the bra in was performed without IV contrast. FINDINGS: There are no foci of restricted diffusion to suggest acute infarct. No acute intracranial h emorrhage, midline shift or mass effect is present. Ventricular system is unremarkable. Basal cistern s are patent. There are no extra axial collections. Flow-voids for the major intracranial vessels are present. White matter T2 hyperintense foci suggest small vessel disease. This exam is mildly comprom ised by motion artifact. 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 A 2.1 cm T1 and T2 hypointense focus within left parietal bone is unchanged since MRI of July 23, 2021. Therefore, this is probably be nign. The appearance of the brain is similar to exam. IMPRESSION: No acute intracranial findings. ACT 112: Negative or not required by law. Electronically signed by: Srinivas Vines M.D. 07/06/2022 11:38 PM
[2022-07-06 23:59] LABS: Albumin Globulin Ratio 1.4 (0.9-2); Bilirubin,Total 0.5 mg/dl (0.2-1.0); Globulin 2.1 gm/dl (2.5-4.0); Total Protein 5.1 gm/dl (6.0-8.3)
[2022-07-07] MEDS: LACTATED RINGER'S 1,000 ML IV SCH (02:45)
[2022-07-07 04:24] LABS: Basophils # (auto) 0.02 K/uL (0-0.2); Basophils % (auto) 0.2 %; Eosinophils # (auto) 0.54 K/uL (0-0.50); Eosinophils % (auto) 5.9 %; Hemoglobin 9.8 g/dl (12.0-16.0); Immature Granulocytes # (auto) 0.04 K/uL (0.00-0.02); Immature Granulocytes % (auto) 0.4 %; Lymphocytes # (auto) 1.21 K/uL (1.2-3.4); Lymphocytes % (auto) 13.2 %; Mean Corpuscular Hemoglobin 31.2 pg (25.0-34.0); Mean Corpuscular Volume 89.2 fL (80.0-100.0); Mean Platelet Volume 9.1 fL (9.4-12.3); Monocytes # (auto) 0.61 K/uL (0.24-0.82); Monocytes % (auto) 6.7 %; Neutrophils # (auto) 6.75 K/uL (1.4-6.5); Neutrophils % (auto) 73.6 %; Platelet Count 168 K/uL (130-400); RDW Coefficient of Variation 12.8 % (11.5-14.5); RDW Standard Deviation 41.3 fL (36.4-46.3); Red Blood Count 3.14 M/uL (3.93-5.22); White Blood Count 9.17 K/ul (4.8-10.8)
[2022-07-07 04:39] LABS: BUN Creatinine Ratio 21.9 (10-20); Calcium 8.3 mg/dl (8.5-10.1); Est GFR (African American) 84.6 ml/min; Potassium 3.9 mmol/L (3.5-5.1)
[2022-07-07] MEDS ORDERED: GLUCAGON FOR INJ 1 MG VIAL SQ PRN (04:53)
[2022-07-07] MEDS ORDERED: CARBOHYDRATES FOR HYPOGLYCEMIA PO PRN (04:53)
[2022-07-07] MEDS ORDERED: GLUCOSE 40% GEL 15 GM TUBE PO PRN (04:53)
[2022-07-07] MEDS ORDERED: GLUCOSE 10 TAB/TUBE PO PRN (04:53)
[2022-07-07] MEDS ORDERED: DEXTROSE 50% 50 ML SYRINGE IV PRN (04:53)
[2022-07-07 04:57] LABS: Albumin Globulin Ratio 1.5 (0.9-2); Albumin Level 3.1 gm/dl (3.4-5.0); Bilirubin,Total 0.5 mg/dl (0.2-1.0); Globulin 2.1 gm/dl (2.5-4.0); Total Protein 5.2 gm/dl (6.0-8.3)
[2022-07-07] MEDS: LEVOTHYROXINE SODIUM 50 MCG TABLET PO SCH (06:15)
[2022-07-07] MEDS: FLUTICASONE/VILANTEROL 100/25MCG 14 PUFFS/INHALER INH SCH (07:54)
[2022-07-07] MEDS ORDERED: PRAMIPEXOLE DIHYDROCHLO 0.25 MG TAB PO SCH (09:00)
[2022-07-07 09:41] LABS: BUN Creatinine Ratio 19.5 (10-20); Calcium 8.3 mg/dl (8.5-10.1); Creatinine Clr Calc Pharmacy 44.6 ml/min; Est GFR (African American) 79.3 ml/min; Est GFR (Non-African American) 68.5 ml/min; Potassium 3.8 mmol/L (3.5-5.1)
[2022-07-07 09:53] LABS: Albumin Globulin Ratio 1.6 (0.9-2); Bilirubin,Total 0.5 mg/dl (0.2-1.0); Globulin 1.9 gm/dl (2.5-4.0); Total Protein 4.9 gm/dl (6.0-8.3)
[2022-07-07] MEDS ORDERED: PANTOprazole 40 MG in SYRINGE 0 ML IV SCH (11:00)
--- NOTE | 2022-07-07 11:25 | Hospitalist Progress Note ---
Date of Service July 07, 2022 Assessment & Plan (1) Unresponsive: Plan: -Patient brought in this am by EMS after being found down and unresponsive by EMS; last known well was last night at approximately 10:30-11 pm -Patient initially intubated by the ED staff due to mental status and acute respiratory failure, S/P successful extubation as patient's mental status has improved, patient is currently stable on an oxymask at 5L -Initial CT's of the head and CTA's of the head/neck are negative for acute findings -CT of the chest with contrast showing multiple subacute left rib fractures with subacute fracture of the right 11th rib as well, otherwise no other acute findings -CT of the abd/pelvis with IV contrast showed her known rib fractures without other acute trauma or findings noted in the abdomen or pelvis -Also Noted to be hypothermic at 28.7C on arrival to the ED and placed on warming blanket and warm IV fluids, temperature is now normal -No signs of infection on initial labs/imaging, her leukocytosis is likely due to her acute clinical status, have ordered procal, blood cultures, and urine cultures, will continue to monitor for signs of infection -According to the daughter, patient wandered outside of the house without her clothes on, has been exhibiting signs of dementia of the past several months -MRI brain showed 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 -Patient now awake and alert, back to her baseline (2) High anion gap metabolic acidosis: Plan: -Most likely due to dehydration and hypothermia -Now resolved (3) Elevated troponin: Plan: -Most likely due to demand ischemia from hypothermia -ECG is without acute ST segment or T-wave changes -Will continue to trend trops until peak and will continue to monitor on tele (4) Elevated CK: Plan: -Initial noted to be 519, stable renal function and electrolytes -Likely due to being down all night -Will continue IV fluids and trending CK until it peaks (5) Ribs, multiple fractures: Plan: -Patient found to have multiple subacute rib fractures on the right and left chest, ICU confirmed that they appear subacute and not acute from her recent fall -Patien tis currently stable on 5L oxymask and is in no respiratory distress -Will follow-up with the remaining trauma scans ordered on admission (6) Paroxysmal atrial fibrillation: Plan: sinus rhythm with PAC's (7) GERD (gastroesophageal reflux disease): Plan: -IV Protonix daily until she can take PO meds safely (8) Hypothyroidism: Plan: -Will FU with TSH ordered on admission -Continue levothyroxine (9) Hypertension: Plan: -Currently hemodynamically stable -Not on antihypertensive agents at home -Continue to monitor for now (10) Dementia: Plan: Patient likely has dementia as corroborated by daughter worsening memory issues and forgetfulness MRI shows old lacunar infarcts Plan patient may need placement at memory home following d/c Admission and Anticipated Discharge Date Admission Date: July 06, 2022 Subjective patient seen and examined, awake and alert, occasionally confused Review of Systems Review of Systems: unreliable due to dementia Physical Exam Physical Exam: The patient is awake, alert and oriented 3, in mittens HEENT--PERRL, EOMI, mucous membranes and oropharynx mildly dry Neck--supple. No JVD. No bruits. Thyroid normal, trachea midline, no adenopathy. Heart--normal S1 and S2. No murmurs, rubs or gallops. Lungs--clear bilaterally, no respiratory distress, no accessory muscle use. Abdomen--normal bowel sounds and soft. Mild epigastric and left sided abdominal pain Extremities--no cyanosis or clubbing. No edema. Dermatologic--normal skin turgor, normal color, no abnormal lymph nodes, no rash. Neurologic--cranial nerves II through XII grossly intact. Rheumatologic--normal range of motion. Psychiatric--normal affect. Results & Data Results & Data ([facility]) Vital Signs (Past 12 Hours) Vital Signs Temp Pulse Pulse Resp BP Pulse Ox O2 Del Method 07/07/22 08:00 84 07/07/22 08:00 Room Air 07/07/22 08:06 97.7 F 86 16 113/58 L 92 Room Air 07/07/22 03:06 98.2 F 91 H 106/58 L 95 Room Air 07/06/22 23:28 99.9 F H 80 18 112/64 96 Room Air PG Care Time/CCT Total # of Minutes Spent Total Time Spent with Patient: Total time spent is greater than 50% in coordination of care (as documented) at patient's floor/unit and/or counseling patient: Coding Level of Care Code 59531 SUB INP/OBS CARE 2/35MIN Diagnoses Unresponsive R41.89 High anion gap metabolic acidosis E87.29 Elevated troponin R77.8 Elevated CK R74.8 Ribs, multiple fractures S22.49XA Paroxysmal atrial fibrillation I48.0 GERD (gastroesophageal reflux disease) K21.9 Hypothyroidism E03.9 Hypertension I10 Dementia F03.90 Time Spent (min) 35
--- NOTE | 2022-07-07 12:47 | XCELERA ---
[id number]
[2022-07-07 16:50] LABS: BUN Creatinine Ratio 15.9 (10-20); Calcium 8.6 mg/dl (8.5-10.1); Creatinine Clr Calc Pharmacy 41.9 ml/min; Est GFR (African American) 73.5 ml/min; Est GFR (Non-African American) 63.4 ml/min; Potassium 4.1 mmol/L (3.5-5.1)
[2022-07-07 17:08] LABS: Albumin Globulin Ratio 1.4 (0.9-2); Albumin Level 3.1 gm/dl (3.4-5.0); Bilirubin,Total 0.5 mg/dl (0.2-1.0); Globulin 2.2 gm/dl (2.5-4.0); Total Protein 5.3 gm/dl (6.0-8.3)
[2022-07-08] MEDS: LEVOTHYROXINE SODIUM 50 MCG TABLET PO SCH (05:55)
[2022-07-08 07:28] LABS: Basophils # (auto) 0.04 K/uL (0-0.2); Basophils % (auto) 0.5 %; Eosinophils % (auto) 2.6 %; Hematocrit (blood only) 28.8 % (34.1-44.9); Hemoglobin 9.8 g/dl (12.0-16.0); Immature Granulocytes # (auto) 0.04 K/uL (0.00-0.02); Immature Granulocytes % (auto) 0.5 %; Lymphocytes % (auto) 14.4 %; Mean Corpuscular Hemoglobin 31.3 pg (25.0-34.0); Mean Platelet Volume 9.4 fL (9.4-12.3); Monocytes # (auto) 0.74 K/uL (0.24-0.82); Monocytes % (auto) 9.7 %; Neutrophils # (auto) 5.52 K/uL (1.4-6.5); Neutrophils % (auto) 72.3 %; Platelet Count 181 K/uL (130-400); RDW Coefficient of Variation 13.3 % (11.5-14.5); RDW Standard Deviation 43.9 fL (36.4-46.3); Red Blood Count 3.13 M/uL (3.93-5.22); White Blood Count 7.64 K/ul (4.8-10.8)
[2022-07-08] MEDS: FLUTICASONE/VILANTEROL 100/25MCG 14 PUFFS/INHALER INH SCH (08:10)
--- NOTE | 2022-07-08 12:51 | Hospitalist Progress Note ---
Date of Service July 08, 2022 Assessment & Plan (1) Unconscious: Plan: -Unconscious, present on admission -Patient brought in this am by EMS after being found down and unresponsive by EMS; last known well was last night at approximately 10:30-11 pm -Patient initially intubated by the ED staff due to mental status and acute respiratory failure, S/P successful extubation as patient's mental status has improved, patient is currently stable on an oxymask at 5L -Initial CT's of the head and CTA's of the head/neck are negative for acute findings -CT of the chest with contrast showing multiple subacute left rib fractures with subacute fracture of the right 11th rib as well, otherwise no other acute findings -CT of the abd/pelvis with IV contrast showed her known rib fractures without other acute trauma or findings noted in the abdomen or pelvis -Also Noted to be hypothermic at 28.7C on arrival to the ED and placed on warming blanket and warm IV fluids, temperature is now normal -No signs of infection on initial labs/imaging, her leukocytosis is likely due to her acute clinical status, have ordered procal, blood cultures, and urine cultures, will continue to monitor for signs of infection -According to the daughter, patient wandered outside of the house without her clothes on, has been exhibiting signs of dementia of the past several months -MRI brain showed 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 -Patient now awake and alert, back to her baseline, was sleepy today (2) High anion gap metabolic acidosis: Plan: -Most likely due to dehydration and hypothermia -Now resolved (3) Elevated troponin: Plan: -Myocardial infarction type 2 due to demand ischemia -ECG is without acute ST segment or T-wave changes -Will continue to trend trops until peak and will continue to monitor on tele (4) Elevated CK: Plan: -Due to rhabdomyolysis Initial noted to be 519, increased to 2000, stable renal function and electrolytes -Likely due to being down all night -Will continue IV fluids and trending CK until it peaks (5) Ribs, multiple fractures: Plan: -Patient found to have multiple subacute rib fractures on the right and left chest, ICU confirmed that they appear subacute and not acute from her recent fall -Patien tis currently stable on 5L oxymask and is in no respiratory distress -Will follow-up with the remaining trauma scans ordered on admission (6) Paroxysmal atrial fibrillation: Plan: sinus rhythm with PAC's (7) GERD (gastroesophageal reflux disease): Plan: -IV Protonix daily until she can take PO meds safely (8) Hypothyroidism: Plan: -Will FU with TSH ordered on admission -Continue levothyroxine (9) Hypertension: Plan: -Currently hemodynamically stable -Not on antihypertensive agents at home -Continue to monitor for now (10) Dementia: Plan: Patient likely has dementia as corroborated by daughter worsening memory issues and forgetfulness MRI shows old lacunar infarcts (11) Unresponsive: Plan patient may need placement at memory home following d/c Admission and Anticipated Discharge Date Admission Date: July 06, 2022 Review of Systems Review of Systems: unreliable due to dementia Physical Exam Physical Exam: The patient is awake, alert and oriented 3, in mittens HEENT--PERRL, EOMI, mucous membranes and oropharynx mildly dry Neck--supple. No JVD. No bruits. Thyroid normal, trachea midline, no adenopathy. Heart--normal S1 and S2. No murmurs, rubs or gallops. Lungs--clear bilaterally, no respiratory distress, no accessory muscle use. Abdomen--normal bowel sounds and soft. Mild epigastric and left sided abdominal pain Extremities--no cyanosis or clubbing. No edema. Dermatologic--normal skin turgor, normal color, no abnormal lymph nodes, no rash. Neurologic--cranial nerves II through XII grossly intact. Rheumatologic--normal range of motion. Psychiatric--normal affect. Results & Data Results & Data ([facility]) Vital Signs (Past 12 Hours) Vital Signs Temp Pulse Resp BP Pulse Ox O2 Del Method 07/08/22 11:47 98.1 F 76 20 129/84 92 Room Air 07/08/22 07:58 98.2 F 80 22 129/75 92 Room Air 07/08/22 07:32 76 07/08/22 03:40 99.0 F 89 18 128/58 L 94 Room Air PG Care Time/CCT Total # of Minutes Spent Total Time Spent with Patient: Total time spent is greater than 50% in coordination of care (as documented) at patient's floor/unit and/or counseling patient: Coding Level of Care Code 95554 SUB INP/OBS CARE 2/35MIN Diagnoses Unconscious R40.20 High anion gap metabolic acidosis E87.29 Elevated troponin R77.8 Elevated CK R74.8 Ribs, multiple fractures S22.49XA Paroxysmal atrial fibrillation I48.0 GERD (gastroesophageal reflux disease) K21.9 Hypothyroidism E03.9 Hypertension I10 Dementia F03.90 Unresponsive R41.89 Time Spent (min) 35
[2022-07-08] MEDS ORDERED: cephALEXin 500 MG CAP PO ONE (14:30)
[2022-07-08] MEDS: cephALEXin 500 MG CAP PO SCH (20:13)
[2022-07-09 00:12] LABS: 7-Aminoclonaz, Confirm NEGATIVE ng/mL (<25); Hydro-Alp Ur, GC/MS NEGATIVE ng/mL (<25); Hydroxyethylflurazepam, Conf NEGATIVE ng/mL (<50); Hydroxymidazolam Ur, GC/MS NEGATIVE ng/mL (<50); Hydroxytriazolam NEGATIVE ng/mL (<50); Lorazepam, Ur GC/MS NEGATIVE ng/mL (<50); Nordiazepam, Confirm 148 ng/mL (<50); Oxazepam Ur, GC/MS >2000 ng/mL (<50); Temazepam, Confirm NEGATIVE ng/mL (<50)
[2022-07-09] MEDS: LEVOTHYROXINE SODIUM 50 MCG TABLET PO SCH (05:48)
[2022-07-09 06:08] LABS: Basophils # (auto) 0.06 K/uL (0-0.2); Basophils % (auto) 0.7 %; Eosinophils # (auto) 0.84 K/uL (0-0.50); Eosinophils % (auto) 10.2 %; Hematocrit (blood only) 29.2 % (34.1-44.9); Hemoglobin 9.9 g/dl (12.0-16.0); Immature Granulocytes # (auto) 0.04 K/uL (0.00-0.02); Immature Granulocytes % (auto) 0.5 %; Lymphocytes # (auto) 1.17 K/uL (1.2-3.4); Lymphocytes % (auto) 14.3 %; Mean Corpuscular Hemoglobin 31.5 pg (25.0-34.0); Mean Corpuscular Hgb Conc 33.9 g/dL (32.0-36.0); Mean Platelet Volume 9.1 fL (9.4-12.3); Monocytes # (auto) 0.72 K/uL (0.24-0.82); Monocytes % (auto) 8.8 %; Neutrophils # (auto) 5.37 K/uL (1.4-6.5); Neutrophils % (auto) 65.5 %; Platelet Count 177 K/uL (130-400); RDW Coefficient of Variation 13.2 % (11.5-14.5); RDW Standard Deviation 44.6 fL (36.4-46.3); Red Blood Count 3.14 M/uL (3.93-5.22)
[2022-07-09 06:36] LABS: Calcium 7.8 mg/dl (8.5-10.1); Creatinine Clr Calc Pharmacy 45.2 ml/min; Est GFR (African American) 80.6 ml/min; Est GFR (Non-African American) 69.5 ml/min; Potassium 3.5 mmol/L (3.5-5.1)
--- NOTE | 2022-07-09 12:19 | Hospitalist Progress Note ---
Date of Service July 09, 2022 Assessment & Plan (1) Unconscious: Plan: -Unconscious, present on admission -According to the daughter, patient wandered outside of the house without her clothes on, has been exhibiting signs of dementia of the past several months -Patient brought in this am by EMS after being found down and unresponsive by EMS; last known well was last night at approximately 10:30-11 pm -Patient initially intubated by the ED staff due to mental status and acute respiratory failure, S/P successful extubation as patient's mental status has improved, patient is currently stable on an oxymask at 5L -Initial CT's of the head and CTA's of the head/neck are negative for acute findings -CT of the chest with contrast showing multiple subacute left rib fractures with subacute fracture of the right 11th rib as well, otherwise no other acute findings -CT of the abd/pelvis with IV contrast showed her known rib fractures without other acute trauma or findings noted in the abdomen or pelvis -hypothermia, noted on admission, resolved after warming blanket -MRI brain showed 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 -Patient now awake and alert, back to her baseline, (2) High anion gap metabolic acidosis: Plan: -Most likely due to dehydration and hypothermia -Now resolved (3) Elevated troponin: Plan: -Myocardial infarction type 2 due to demand ischemia -ECG is without acute ST segment or T-wave changes -Will continue to trend trops until peak and will continue to monitor on tele (4) UTI (urinary tract infection): Plan: urinalysis shows evidence of uti Currently on keflex PO (5) Wound cellulitis: Plan: multiple lower extremity wounds and areas of cellulitis right toe wound, with escar continue wound dressing (6) Elevated CK: Plan: -Due to rhabdomyolysis -improving -Will continue IV fluids and trending CK until it peaks (7) Ribs, multiple fractures: Plan: -Patient found to have multiple subacute rib fractures on the right and left chest, ICU confirmed that they appear subacute and not acute from her recent fall (8) Paroxysmal atrial fibrillation: Plan: sinus rhythm with PAC's (9) GERD (gastroesophageal reflux disease): Plan: -IV Protonix daily until she can take PO meds safely (10) Hypothyroidism: Plan: -Will FU with TSH ordered on admission -Continue levothyroxine (11) Hypertension: Plan: -Currently hemodynamically stable -Not on antihypertensive agents at home -Continue to monitor for now (12) Dementia: Plan: Patient likely has dementia as corroborated by daughter worsening memory issues and forgetfulness MRI shows old lacunar infarcts (13) Unresponsive: Plan patient may need placement at memory home following d/c Admission and Anticipated Discharge Date Admission Date: July 06, 2022 Subjective patient seen and examined, awake and alert, occasionally confused Review of Systems Review of Systems: unreliable due to dementia Physical Exam Physical Exam: The patient is awake, alert and oriented 3, in mittens HEENT--PERRL, EOMI, mucous membranes and oropharynx mildly dry Neck--supple. No JVD. No bruits. Thyroid normal, trachea midline, no adenopathy. Heart--normal S1 and S2. No murmurs, rubs or gallops. Lungs--clear bilaterally, no respiratory distress, no accessory muscle use. Abdomen--normal bowel sounds and soft. Mild epigastric and left sided abdominal pain Extremities--no cyanosis or clubbing. No edema. Dermatologic--normal skin turgor, normal color, no abnormal lymph nodes, no rash. Neurologic--cranial nerves II through XII grossly intact. Rheumatologic--normal range of motion. Psychiatric--normal affect. Results & Data Results & Data ([facility]) Vital Signs (Past 12 Hours) Vital Signs Temp Pulse Resp BP Pulse Ox O2 Del Method 07/09/22 11:36 99.1 F 78 18 152/74 H 96 Room Air 07/09/22 07:51 98.1 F 72 18 158/80 H 95 Room Air 07/09/22 03:03 98.1 F 78 18 146/94 H 94 Room Air PG Care Time/CCT Total # of Minutes Spent Total Time Spent with Patient: Total time spent is greater than 50% in coordination of care (as documented) at patient's floor/unit and/or counseling patient: Coding Level of Care Code 74871 SUB INP/OBS CARE 2/35MIN Diagnoses Unconscious R40.20 High anion gap metabolic acidosis E87.29 Elevated troponin R77.8 UTI (urinary tract infection) N39.0 Wound cellulitis L03.90 Elevated CK R74.8 Ribs, multiple fractures S22.49XA Paroxysmal atrial fibrillation I48.0 GERD (gastroesophageal reflux disease) K21.9 Hypothyroidism E03.9 Hypertension I10 Dementia F03.90 Unresponsive R41.89 Time Spent (min) 35
[2022-07-09] MEDS: FLUTICASONE/VILANTEROL 100/25MCG 14 PUFFS/INHALER INH SCH (12:58)
[2022-07-09] MEDS: cephALEXin 500 MG CAP PO SCH ×2 (12:59→20:28)
[2022-07-09] MEDS: APIXABAN 2.5 MG TAB PO SCH (20:28)
[2022-07-10] MEDS: LEVOTHYROXINE SODIUM 50 MCG TABLET PO SCH (06:16)
[2022-07-10 06:27] LABS: Basophils # (auto) 0.06 K/uL (0-0.2); Basophils % (auto) 0.8 %; Eosinophils # (auto) 0.45 K/uL (0-0.50); Eosinophils % (auto) 6.1 %; Hematocrit (blood only) 31.3 % (34.1-44.9); Hemoglobin 10.4 g/dl (12.0-16.0); Immature Granulocytes # (auto) 0.06 K/uL (0.00-0.02); Immature Granulocytes % (auto) 0.8 %; Lymphocytes # (auto) 1.11 K/uL (1.2-3.4); Lymphocytes % (auto) 15.1 %; Mean Corpuscular Hemoglobin 30.7 pg (25.0-34.0); Mean Corpuscular Hgb Conc 33.2 g/dL (32.0-36.0); Mean Corpuscular Volume 92.3 fL (80.0-100.0); Mean Platelet Volume 9.3 fL (9.4-12.3); Monocytes # (auto) 0.76 K/uL (0.24-0.82); Monocytes % (auto) 10.3 %; Neutrophils # (auto) 4.91 K/uL (1.4-6.5); Neutrophils % (auto) 66.9 %; Platelet Count 217 K/uL (130-400); RDW Coefficient of Variation 13.1 % (11.5-14.5); RDW Standard Deviation 43.8 fL (36.4-46.3); Red Blood Count 3.39 M/uL (3.93-5.22); White Blood Count 7.35 K/ul (4.8-10.8)
[2022-07-10] MEDS: cephALEXin 500 MG CAP PO SCH ×2 (08:40→22:22)
[2022-07-10] MEDS: FLUTICASONE/VILANTEROL 100/25MCG 14 PUFFS/INHALER INH SCH (08:40)
[2022-07-10] MEDS: APIXABAN 2.5 MG TAB PO SCH ×2 (08:40→22:22)
[2022-07-10] MEDS ORDERED: ACETAMINOPHEN 325 MG TAB PO PRN (12:12)
--- NOTE | 2022-07-10 12:16 | Hospitalist Progress Note ---
Date of Service July 10, 2022 Assessment & Plan (1) Unconscious: Plan: -Unconscious, present on admission -According to the daughter, patient wandered outside of the house without her clothes on, has been exhibiting signs of dementia of the past several months -Patient brought in this am by EMS after being found down and unresponsive by EMS; last known well was last night at approximately 10:30-11 pm -Patient initially intubated by the ED staff due to mental status and acute respiratory failure, S/P successful extubation as patient's mental status has improved, patient is currently stable on an oxymask at 5L -Initial CT's of the head and CTA's of the head/neck are negative for acute findings -CT of the chest with contrast showing multiple subacute left rib fractures with subacute fracture of the right 11th rib as well, otherwise no other acute findings -CT of the abd/pelvis with IV contrast showed her known rib fractures without other acute trauma or findings noted in the abdomen or pelvis -hypothermia, noted on admission, resolved after warming blanket -MRI brain showed 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 -Patient now awake and alert, back to her baseline, -Gets agitated occasionally (2) High anion gap metabolic acidosis: Plan: -Most likely due to dehydration and hypothermia -Now resolved (3) Elevated troponin: Plan: -Myocardial infarction type 2 due to demand ischemia -ECG is without acute ST segment or T-wave changes -Will continue to trend trops until peak and will continue to monitor on tele (4) UTI (urinary tract infection): Plan: urinalysis shows evidence of uti, cultures growing E coli, hugo sensitive Currently on keflex PO (5) Wound cellulitis: Plan: multiple lower extremity wounds and areas of cellulitis right toe wound, with escar continue wound dressing (6) Elevated CK: Plan: -Due to Rhabdo -Resolved (7) Ribs, multiple fractures: Plan: -Patient found to have multiple subacute rib fractures on the right and left chest, ICU confirmed that they appear subacute and not acute from her recent fall (8) Paroxysmal atrial fibrillation: Plan: sinus rhythm with PAC's (9) GERD (gastroesophageal reflux disease): Plan: -IV Protonix daily until she can take PO meds safely (10) Hypothyroidism: Plan: -Will FU with TSH ordered on admission -Continue levothyroxine (11) Hypertension: Plan: -Currently hemodynamically stable -Not on antihypertensive agents at home -Continue to monitor for now (12) Dementia: Plan: Patient likely has dementia as corroborated by daughter worsening memory issues and forgetfulness MRI shows old lacunar infarcts (13) Unresponsive: Plan patient may need placement at memory home following d/c Admission and Anticipated Discharge Date Admission Date: July 06, 2022 Subjective patient seen and examined, awake and alert, but occasionally confused, sitting up in the chair Review of Systems Review of Systems: unreliable due to dementia Physical Exam Physical Exam: The patient is awake, alert and oriented 3, in mittens HEENT--PERRL, EOMI, mucous membranes and oropharynx mildly dry Neck--supple. No JVD. No bruits. Thyroid normal, trachea midline, no vinicio nopathy. Heart--normal S1 and S2. No murmurs, rubs or gallops. Lungs--clear bilaterally, no respiratory distress, no accessory muscle use. Abdomen--normal bowel sounds and soft. Mild epigastric and left sided abdominal pain Extremities--no cyanosis or clubbing. No edema. Dermatologic--normal skin turgor, normal color, no abnormal lymph nodes, no rash. Neurologic--cranial nerves II through XII grossly intact. Rheumatologic--normal range of motion. Psychiatric--normal affect. Results & Data Results & Data ([facility]) Vital Signs (Past 12 Hours) Vital Signs Temp Pulse Pulse Resp BP Pulse Ox O2 Del Method 07/10/22 10:41 98.4 F 91 H 16 136/73 95 Room Air 07/10/22 09:09 93 H 07/10/22 08:00 Room Air 07/10/22 03:00 98.1 F 92 H 18 153/76 H 95 Room Air PG Care Time/CCT Total # of Minutes Spent Total Time Spent with Patient: Total time spent is greater than 50% in coordination of care (as documented) at patient's floor/unit and/or counseling patient: Coding Level of Care Code 12181 SUB INP/OBS CARE 2/35MIN Diagnoses Unconscious R40.20 High anion gap metabolic acidosis E87.29 Elevated troponin R77.8 UTI (urinary tract infection) N39.0 Wound cellulitis L03.90 Elevated CK R74.8 Ribs, multiple fractures S22.49XA Paroxysmal atrial fibrillation I48.0 GERD (gastroesophageal reflux disease) K21.9 Hypothyroidism E03.9 Hypertension I10 Dementia F03.90 Unresponsive R41.89 Time Spent (min) 35
--- NOTE | 2022-07-10 22:07 | Electrocardiogram Report ---
Test Reason : Blood Pressure : / mmHG Vent. Rate : 101 BPM Atrial Rate : 101 BPM P-R Int : 168 ms QRS Dur : 130 ms QT Int : 406 ms P-R-T Axes : 076 -14 148 degrees QTc Int : 526 ms Sinus tachycardia Left bundle branch block Abnormal ECG When compared with ECG of 06-JUL-2022 09:28, Premature atrial complexes are no longer Present Confirmed by Kan Ames ([id number] on 07/10/2022 10:07:03 PM Referred By: REFERRED SELF Confirmed By:Kan Ames
[2022-07-11 07:20] LABS: Basophils # (auto) 0.05 K/uL (0-0.2); Basophils % (auto) 0.8 %; Eosinophils # (auto) 1.17 K/uL (0-0.50); Eosinophils % (auto) 17.6 %; Hematocrit (blood only) 28.5 % (34.1-44.9); Hemoglobin 9.3 g/dl (12.0-16.0); Immature Granulocytes # (auto) 0.05 K/uL (0.00-0.02); Immature Granulocytes % (auto) 0.8 %; Lymphocytes # (auto) 1.59 K/uL (1.2-3.4); Lymphocytes % (auto) 23.9 %; Mean Corpuscular Hemoglobin 30.8 pg (25.0-34.0); Mean Corpuscular Hgb Conc 32.6 g/dL (32.0-36.0); Mean Corpuscular Volume 94.4 fL (80.0-100.0); Mean Platelet Volume 8.8 fL (9.4-12.3); Monocytes # (auto) 0.72 K/uL (0.24-0.82); Monocytes % (auto) 10.8 %; Neutrophils # (auto) 3.07 K/uL (1.4-6.5); Neutrophils % (auto) 46.1 %; Platelet Count 202 K/uL (130-400); RDW Coefficient of Variation 13.2 % (11.5-14.5); RDW Standard Deviation 45.2 fL (36.4-46.3); Red Blood Count 3.02 M/uL (3.93-5.22); White Blood Count 6.65 K/ul (4.8-10.8)
[2022-07-11] MEDS: FLUTICASONE/VILANTEROL 100/25MCG 14 PUFFS/INHALER INH SCH (07:46)
[2022-07-11] MEDS: APIXABAN 2.5 MG TAB PO SCH ×2 (07:46→20:46)
[2022-07-11] MEDS: LEVOTHYROXINE SODIUM 50 MCG TABLET PO SCH (07:46)
[2022-07-11] MEDS: cephALEXin 500 MG CAP PO SCH ×2 (07:46→20:46)
--- NOTE | 2022-07-11 14:32 | Hospitalist Progress Note ---
Date of Service July 11, 2022 Assessment & Plan (1) Unconscious: Plan: -Unconscious, present on admission -According to the daughter, patient wandered outside of the house without her clothes on, has been exhibiting signs of dementia of the past several months -Patient brought in this am by EMS after being found down and unresponsive by EMS; last known well was last night at approximately 10:30-11 pm -Patient initially intubated by the ED staff due to mental status and acute respiratory failure, S/P successful extubation as patient's mental status has improved, patient is currently stable on an oxymask at 5L -Initial CT's of the head and CTA's of the head/neck are negative for acute findings -CT of the chest with contrast showing multiple subacute left rib fractures with subacute fracture of the right 11th rib as well, otherwise no other acute findings -CT of the abd/pelvis with IV contrast showed her known rib fractures without other acute trauma or findings noted in the abdomen or pelvis -hypothermia, noted on admission, resolved after warming blanket -MRI brain showed 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 -Patient now awake and alert, back to her baseline, -Awaiting placement (2) High anion gap metabolic acidosis: Plan: -Most likely due to dehydration and hypothermia -Now resolved (3) Elevated troponin: Plan: -Myocardial infarction type 2 due to demand ischemia -ECG is without acute ST segment or T-wave changes -Will continue to trend trops until peak and will continue to monitor on tele (4) UTI (urinary tract infection): Plan: urinalysis shows evidence of uti, cultures growing E coli, hugo sensitive Currently on keflex PO (5) Wound cellulitis: Plan: multiple lower extremity wounds and areas of cellulitis right toe wound, with escar continue wound dressing (6) Elevated CK: Plan: -Due to Rhabdo -Resolved (7) Ribs, multiple fractures: Plan: -Patient found to have multiple subacute rib fractures on the right and left chest, ICU confirmed that they appear subacute and not acute from her recent fall (8) Paroxysmal atrial fibrillation: Plan: sinus rhythm with PAC's (9) GERD (gastroesophageal reflux disease): Plan: -IV Protonix daily until she can take PO meds safely (10) Hypothyroidism: Plan: -Will FU with TSH ordered on admission -Continue levothyroxine (11) Hypertension: Plan: -Currently hemodynamically stable -Not on antihypertensive agents at home -Continue to monitor for now (12) Dementia: Plan: Patient likely has dementia as corroborated by daughter worsening memory issues and forgetfulness MRI shows old lacunar infarcts (13) Unresponsive: Plan patient will need placement at memory home following d/c Admission and Anticipated Discharge Date Admission Date: July 06, 2022 Subjective patient seen and examined, awake and alert, but occasionally confused, sitting up in the chair, tolerating diet Review of Systems Review of Systems: unreliable due to dementia Physical Exam Physical Exam: The patient is awake, alert and oriented 3, in mittens HEENT--PERRL, EOMI, mucous membranes and oropharynx mildly dry Neck--supple. No JVD. No bruits. Thyroid normal, trachea midline, no adenopathy. Heart--normal S1 and S2. No murmurs, rubs or gallops. Lungs--clear bilaterally, no respiratory distress, no accessory muscle use. Abdomen--normal bowel sounds and soft. Mild epigastric and left sided abdominal pain Extremities--no cyanosis or clubbing. No edema. Dermatologic--normal skin turgor, normal color, no abnormal lymph nodes, no rash. Neurologic--cranial nerves II through XII grossly intact. Rheumatologic--normal range of motion. Psychiatric--normal affect. Results & Data Results & Data ([facility]) Vital Signs (Past 12 Hours) Vital Signs Temp Pulse Pulse Resp BP Pulse Ox O2 Del Method 07/11/22 11:55 98.2 F 84 18 114/70 98 Room Air 07/11/22 10:09 77 07/11/22 08:00 Room Air 07/11/22 07:00 97.3 F L 78 18 145/78 H 96 Room Air PG Care Time/CCT Total # of Minutes Spent Total Time Spent with Patient: Total time spent is greater than 50% in coordination of care (as documented) at patient's floor/unit and/or counseling patient: Coding Level of Care Code 03839 SUB INP/OBS CARE 2/35MIN Diagnoses Unconscious R40.20 High anion gap metabolic acidosis E87.29 Elevated troponin R77.8 UTI (urinary tract infection) N39.0 Wound cellulitis L03.90 Elevated CK R74.8 Ribs, multiple fractures S22.49XA Paroxysmal atrial fibrillation I48.0 GERD (gastroesophageal reflux disease) K21.9 Hypothyroidism E03.9 Hypertension I10 Dementia F03.90 Unresponsive R41.89 Time Spent (min) 35
[2022-07-12] MEDS: LEVOTHYROXINE SODIUM 50 MCG TABLET PO SCH (05:50)
[2022-07-12 06:56] LABS: BUN Creatinine Ratio 33.3 (10-20); Calcium 7.6 mg/dl (8.5-10.1); Creatinine Clr Calc Pharmacy 45.8 ml/min; Est GFR (African American) 81.9 ml/min; Est GFR (Non-African American) 70.7 ml/min; Potassium 3.7 mmol/L (3.5-5.1)
[2022-07-12] MEDS: cephALEXin 500 MG CAP PO SCH ×2 (08:44→20:55)
[2022-07-12] MEDS: APIXABAN 2.5 MG TAB PO SCH ×2 (08:44→20:55)
[2022-07-12] MEDS: FLUTICASONE/VILANTEROL 100/25MCG 14 PUFFS/INHALER INH SCH (08:45)
--- NOTE | 2022-07-12 14:06 | Hospitalist Progress Note ---
Date of Service July 12, 2022 Assessment & Plan (1) Unconscious: Plan: -Unconscious, present on admission -According to the daughter, patient wandered outside of the house without her clothes on, has been exhibiting signs of dementia of the past several months -Patient brought in this am by EMS after being found down and unresponsive by EMS; last known well was last night at approximately 10:30-11 pm -Patient initially intubated by the ED staff due to mental status and acute respiratory failure, S/P successful extubation as patient's mental status has improved, patient is currently stable on an oxymask at 5L -Initial CT's of the head and CTA's of the head/neck are negative for acute findings -CT of the chest with contrast showing multiple subacute left rib fractures with subacute fracture of the right 11th rib as well, otherwise no other acute findings -CT of the abd/pelvis with IV contrast showed her known rib fractures without other acute trauma or findings noted in the abdomen or pelvis -hypothermia, noted on admission, resolved after warming blanket -MRI brain showed 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 -Patient now awake and alert, back to her baseline, -Awaiting placement (2) High anion gap metabolic acidosis: Plan: -Most likely due to dehydration and hypothermia -Now resolved (3) Elevated troponin: Plan: -Myocardial infarction type 2 due to demand ischemia -ECG is without acute ST segment or T-wave changes -Will continue to trend trops until peak and will continue to monitor on tele (4) UTI (urinary tract infection): Plan: urinalysis shows evidence of uti, cultures growing E coli, hugo sensitive Currently on keflex PO Afebrile, wbc wnl (5) Wound cellulitis: Plan: multiple lower extremity wounds and areas of cellulitis right toe wound, with escar continue wound dressing (6) Elevated CK: Plan: -Due to Rhabdo -Resolved (7) Ribs, multiple fractures: Plan: -Patient found to have multiple subacute rib fractures on the right and left chest, they appear subacute and not acute from her recent fall (8) Paroxysmal atrial fibrillation: Plan: sinus rhythm with PAC's (9) GERD (gastroesophageal reflux disease): Plan: -IV Protonix daily until she can take PO meds safely (10) Hypothyroidism: Plan: -Will FU with TSH ordered on admission -Continue levothyroxine (11) Hypertension: Plan: -Currently hemodynamically stable -Not on antihypertensive agents at home -Continue to monitor for now (12) Dementia: Plan: Patient likely has dementia as corroborated by daughter worsening memory issues and forgetfulness MRI shows old lacunar infarcts (13) Unresponsive: Plan patient will need placement at memory home following d/c Admission and Anticipated Discharge Date Admission Date: July 06, 2022 Subjective patient seen and examined, awake and alert, but occasionally confused, sitting up in the chair, tolerating diet, no new complaints Review of Systems Review of Systems: unreliable due to dementia Physical Exam Physical Exam: The patient is awake, alert and oriented 3, [facility] HEENT--PERRL, EOMI, mucous membranes and oropharynx mildly dry Neck--supple. No JVD. No bruits. Thyroid normal, trachea midline, no adenopathy. Heart--normal S1 and S2. No murmurs, rubs or gallops. Lungs--clear bilaterally, no respiratory distress, no accessory muscle use. Abdomen--normal bowel sounds and soft. Mild epigastric and left sided abdominal pain Extremities--no cyanosis or clubbing. No edema. Dermatologic--normal skin turgor, normal color, no abnormal lymph nodes, no rash. Neurologic--cranial nerves II through XII grossly intact. Rheumatologic--normal range of motion. Psychiatric--normal affect. Results & Data Results & Data ([facility]) Vital Signs (Past 12 Hours) Vital Signs Temp Pulse Pulse Resp BP Pulse Ox O2 Del Method 07/12/22 11:47 97.3 F L 82 22 132/77 97 Room Air 07/12/22 08:00 78 07/12/22 08:00 Room Air 07/12/22 07:56 98.4 F 82 18 146/74 H 95 Room Air 07/12/22 03:29 98.6 F 82 18 129/71 94 Room Air PG Care Time/CCT Total # of Minutes Spent Total Time Spent with Patient: Total time spent is greater than 50% in coordination of care (as documented) at patient's floor/unit and/or counseling patient: Coding Level of Care Code 88631 SUB INP/OBS CARE 2/35MIN Diagnoses Unconscious R40.20 High anion gap metabolic acidosis E87.29 Elevated troponin R77.8 UTI (urinary tract infection) N39.0 Wound cellulitis L03.90 Elevated CK R74.8 Ribs, multiple fractures S22.49XA Paroxysmal atrial fibrillation I48.0 GERD (gastroesophageal reflux disease) K21.9 Hypothyroidism E03.9 Hypertension I10 Dementia F03.90 Unresponsive R41.89 Time Spent (min) 35
--- NOTE | 2022-07-12 20:12 | XRay Report ---
XR chest 1V portable HISTORY: rhythm change, shortness of breath COMPARISON: Chest 07/06/2022. FINDINGS: No pneumothorax. The cardiac silhouette remains mildly enlarged. No evidence for pulmonary edema. Left-sided subacute rib fractures again noted. A few bibasilar linear densities consistent wit h subsegmental atelectasis. Otherwise, no new focal lung consolidations to suggest a pneumonia. Possi ble trace bilateral pleural effusions. IMPRESSION: 1. Stable cardiomegaly. 2. Subacute left-sided rib fractures again noted. No pneumothorax. 3. Trace bilateral pleural effusions and bibasilar densities suggestive of subsegmental atelectasis. The ACT 112: Negative or not required by law. Electronically signed by: Clyde Yan M.D. 07/12/2022 8:10 PM
[2022-07-13] MEDS: LEVOTHYROXINE SODIUM 50 MCG TABLET PO SCH ×2 (06:22→06:23)
[2022-07-13] MEDS: APIXABAN 2.5 MG TAB PO SCH (07:50)
[2022-07-13] MEDS: FLUTICASONE/VILANTEROL 100/25MCG 14 PUFFS/INHALER INH SCH (07:50)
[2022-07-13] MEDS: cephALEXin 500 MG CAP PO SCH (07:50)
--- NOTE | 2022-07-13 11:59 | Discharge Summary ---
Date of Service July 13, 2022 Admission HPI Per Admitting Provider Chantal is an 87 year old female with a PMH significant for Paroxysmal atrial fibrillation on Eliquis, LBBB, GERD, asthma, anxiety, hypothyroidism, who presented to the [facility] ED on 07/06/22 via EMS after being found unresponsive outside this am. In the ED the patient was found to be hypothermic at 28.7, hemodynamically stable, but hypoxic in the 80's on 15L NRB by EMS. The patient was subsequently intubated prior to family arriving to the ED. Labs were initially remarkable for 15.38 with an absolute neutrophil count of 9.31, stable hgb at 12.1, stable platelets at 226, INR of 1.1, stable cr of 0.90, AG of 15 with a bicarb 19, glucose of 167, stable electrolytes, stable liver function, initial high sensitivity trop of 160, UA with 4+ bacteria otherwise no other signs of possible UTI, Covid/RSV/Influenza negative, lactate of 4.3, total CK of 519, Chest xray was read as "1. Endotracheal tube appears to be located within the right mainstem bronchus and should be retracted by approximately 3 cm. 2. Multiple acute and mildly depressed left-sided rib fractures. No pneumothorax. 3. This was discussed with Dr. Sheets at 9:55 AM on 07/06/2021.". CT of the brain and CTA of the head/neck was read as "1. No acute intracranial hemorrhage, evidence of acute territorial infarction, or other acute intracranial disease process. 2. No occlusion, hemodynamically significant stenosis, or dissection in the major cervical arteries. 3. No occlusion, hemodynamically significant stenosis, aneurysm, dissection, or arteriovenous malformation in the major intracranial arteries.". The patient was initially given 1L NSS and was then started on NSS at 125 mL/hr. She was placed on a warming blanket due to her hypothermia and additional labs including STAT lactate, ABG, and CK were ordered. The medicine team requested that the ER speak with the ICU prior to admission and also obtain CT of the chest with IV contrast was read as "1. Multiple left-sided rib fractures which appear to be subacute. The eighth and ninth rib fractures are age indeterminate. 2. Interstitial lung disease is noted. Cardiomegaly is seen". CT of the abdomen/pelvis with Iv contrast was read as " At the time of the exam the patient was lying in bed in no obvious distress, at the time of my exam her family had left the trauma bay. The patient had her eyes open but would not follow commands or make eye contact when speaking with her. I spoke with her biological daughter, Milvia Coffey after examining the patient. The patient lives with her daughter and her daughter's . Her daughter states that her last known well was last night at approximately 10:30- 11 pm. Per her daughter, the patient was in her normal state of health yesterday. She was alert and oriented to self, place, and those she is familiar with. She was able to make her own breakfast, lunch, and dinner. This morning at approximately 0730 their neighbor knocked on their door and told them that their "daughter" was lying in their driveway. They quickly realized that this was their mother when they went out to see. Her mother was cold and not responding to them, her picked her mother up and brought her inside the house prior to calling EMS. I explained to the patient's daughter that the patient is very ill at this time and we are asking the ED to obtain further imaging and labs. I also explained that we were waiting to hear back from the ICU whether or not she was accepted by the lower[facility] operator [facility] integration [facility]. I spoke to the daughter regarding code status and goals of care moving forward. At this time since the patient is already intubated the patient's daughter would like to see how she responds and if she improves at all. Her daughter would NOT want CPR or defibrillation if she were to go into cardiac arrest. If the rest of her initial workup were to show critical findings or if she were to continue to decline clinically her daughter would want her extubated and transitioned to comfort measures. Update 11:59 am: After reassessment the patient was beginning to appear more alert and following commands as her body temperature began to improve. When asked by the ED staff if she would want the endotracheal tube removed the patient nodded her head yes. We discussed the options with the patient's daughter. Her daughter expressed understanding that if we removed the breathing tube and the patient declined clinically we would not re-intubate her, per the daughter's request. She confirmed this decision and requested we attempt to extubate the patient. The ED staff successfully extubated the patient who remained stable on an Oxymask. Principal Diagnosis rhabdo, uti Discharge Exam The patient is awake, alert and oriented 3, in mittens HEENT--PERRL, EOMI, mucous membranes and oropharynx mildly dry Neck--supple. No JVD. No bruits. Thyroid normal, trachea midline, no adenopa thy. Heart--normal S1 and S2. No murmurs, rubs or gallops. Lungs--clear bilaterally, no respiratory distress, no accessory muscle use. Abdomen--normal bowel sounds and soft. Mild epigastric and left sided abdominal pain Extremities--no cyanosis or clubbing. No edema. Dermatologic--normal skin turgor, normal color, no abnormal lymph nodes, no rash. Neurologic--cranial nerves II through XII grossly intact. Rheumatologic--normal range of motion. Psychiatric--normal affect. Discharge Data Allergies Allergy/AdvReac Type Severity Reaction Status Date / Time No Known Drug Allergies Allergy Verified 03/02/22 16:36 Consultations 07/06/22 13:08 ED Decision to Admit Stat Ordered Studies 07/06/22 08:46 CT angio head w con Stat CT angio neck with con Stat CT head/brain wo con Stat 07/06/22 10:19 CT Abd and Pelvis [CT abd pelvis IV con only] Stat CT chest diagnostic w con Stat 07/06/22 18:49 MRI Brain [MR brain wo con] Routine Hospital Course (1) Unconscious: -Unconscious, present on admission -According to the daughter, patient wandered outside of the house without her clothes on, has been exhibiting signs of dementia of the past several months -Patient brought in this am by EMS after being found down and unresponsive by EMS; last known well was last night at approximately 10:30-11 pm -Patient initially intubated by the ED staff due to mental status and acute respiratory failure, S/P successful extubation as patient's mental status has improved, patient is currently stable on an oxymask at 5L -Initial CT's of the head and CTA's of the head/neck are negative for acute findings -CT of the chest with contrast showing multiple subacute left rib fractures with subacute fracture of the right 11th rib as well, otherwise no other acute findings -CT of the abd/pelvis with IV contrast showed her known rib fractures without other acute trauma or findings noted in the abdomen or pelvis -hypothermia, noted on admission, resolved after warming blanket -MRI brain showed 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 -Patient now awake and alert, back to her baseline, -Awaiting placement (2) High anion gap metabolic acidosis: -Most likely due to dehydration and hypothermia -Now resolved (3) Elevated troponin: -Myocardial infarction type 2 due to demand ischemia -ECG is without acute ST segment or T-wave changes -Will continue to trend trops until peak and will continue to monitor on tele (4) UTI (urinary tract infection): urinalysis shows evidence of uti, cultures growing E coli, hugo sensitive Currently on keflex PO Afebrile, wbc wnl (5) Wound cellulitis: multiple lower extremity wounds and areas of cellulitis right toe wound, with escar continue wound dressing (6) Elevated CK: -Due to Rhabdo -Resolved (7) Ribs, multiple fractures: -Patient found to have multiple subacute rib fractures on the right and left chest, they appear subacute and not acute from her recent fall (8) Paroxysmal atrial fibrillation: sinus rhythm with PAC's (9) GERD (gastroesophageal reflux disease): -IV Protonix daily until she can take PO meds safely (10) Hypothyroidism: -Will FU with TSH ordered on admission -Continue levothyroxine (11) Hypertension: -Currently hemodynamically stable -Not on antihypertensive agents at home -Continue to monitor for now (12) Dementia: Patient likely has dementia as corroborated by daughter worsening memory issues and forgetfulness MRI shows old lacunar infarcts (13) Unresponsive: Plan patient will need placement at snf Total Time Total Time Spent Total Time Spent (In Minutes): 35 Discharge Plan Discharge Items Patient Disposition: Transfer Group Home Fac Reason For Visit: INITIALLY UNRESPONSIVE Discharge Diagnosis: Rhabdo, UTI Activity: Resume your previous activity Non-emergency contact: Primary Care Provider Call non-emergency contact if: you have any medication questions Follow-up/Referrals: Annika Salgado CRNP [Primary Care Provider] - Diet: Regular Addtl Attending Provider Instructions: please make appointment to follow up with your regular PCP Pending Studies at Discharge: No Stand-Alone Forms: My [id number] Skilled Items Patient informed of condition?: Yes DNR: Yes Discharge Level of Care: Skilled Communicable Disease: No Discharge Prognosis: Stable Lines: None Urinary Catheter: No Medications and DC Order Prescriptions: Continued furosemide [Lasix] 40 mg tablet 40 mg PO BID Qty: 180 3RF clorazepate dipotassium 7.5 mg tablet 7.5 mg PO BID PRN (Reason: anxiety) Qty: 60 3RF apixaban 2.5 mg tablet 2.5 mg PO BID Qty: 180 3RF cetirizine [Zyrtec] 10 mg tablet 10 mg PO DAILY PRN (Reason: allergy symptoms) Qty: 90 3RF levothyroxine [Synthroid] 50 mcg tablet 50 mcg PO DAILYBB Qty: 90 3RF montelukast [Singulair] 10 mg tablet 10 mg PO QPM Qty: 90 3RF potassium chloride [Klor-Con 10] 10 mEq tablet extended release 10 meq PO BID Qty: 28 0RF vitamin B complex [B Complex-Vitamin B12] tablet 1 tab PO DAILY Qty: 30 0RF sennosides [Senna Laxative] 8.6 mg tablet 8.6 mg PO DAILY PRN (Reason: constipation) Qty: 30 0RF omeprazole 20 mg Tablet,Delayed Release (Dr/Ec) 20 mg PO DAILY acetaminophen 325 mg Tablet 650 mg PO Q4H PRNQty: 0 0RF diclofenac sodium [Voltaren Arthritis Pain] 1 % Gel 2 g EXT QID Qty: 0 0RF fluticasone propion-salmeterol [Advair Diskus] 100-50 mcg/dose blister with device 1 inh inhalation BID Qty: 60 0RF albuterol sulfate [Ventolin HFA] 90 mcg/actuation HFA aerosol inhaler 2 inh inhalation Q6H PRN (Reason: shortness of breath or wheezing) Qty: 6.7 0RF Discontinued oxycodone 5 mg tablet 5 mg PO BID PRN (Reason: pain) Qty: 40 0RF pramipexole 0.75 mg tablet 0.75 mg PO DAILY Qty: 90 0RF Discharge Orders: Discharge Order (Routine); Ordered 07/13/22 Ordered By: Cuate Vazquez Admission Data Admit Date/Time: 07/06/22 12:14 Attending Provider: Cuate Vazquez Admit Provider: Rodrick Ann Primary Care Provider: Annika Salgado Other Providers: Rodrick Ann ; [facility] ; [facility], Other Interventions: Discharge Summary Assessment (RN) Last Done: 07/13/22 09:36 Coding Level of Care Code HOSP INP/OBS DISCH >30 MIN Diagnoses Unconscious R40.20 High anion gap metabolic acidosis E87.29 Elevated troponin R77.8 UTI (urinary tract infection) N39.0 Wound cellulitis L03.90 Elevated CK R74.8 Ribs, multiple fractures S22.49XA Paroxysmal atrial fibrillation I48.0 GERD (gastroesophageal reflux disease) K21.9 Hypothyroidism E03.9 Hypertension I10 Dementia F03.90 Unresponsive R41.89 Time Spent (min) 35
--- NOTE | 2022-07-14 06:37 | Electrocardiogram Report ---
Test Reason : Blood Pressure : / mmHG Vent. Rate : 109 BPM Atrial Rate : 072 BPM P-R Int : 000 ms QRS Dur : 128 ms QT Int : 386 ms P-R-T Axes : 000 004 199 degrees QTc Int : 519 ms Sinus tachycardia Left bundle branch block Abnormal ECG When compared with ECG of 09-JUL-2022 17:11, No significant change Confirmed by Mohinder Pinzon ([id number]) on 07/14/2022 6:37:10 AM Referred By: REFERRED SELF Confirmed By:Mohinder Pinzon
== END 2022-07-13 13:28 | DRG 80 ==
LOC: ED 08:49 → 2S 12:14 → SUATTDRO 12:14 → 2S 14:49